=== PATIENT | male | born 1955 | race Caucasian/White ===

== ENCOUNTER 2018-10-17 17:38 | Inpatient (IN) | payer OTHER ==
[~2018-10-17] VITALS: Ht 172.7 cm; Wt 94.8 kg
[2018-10-17] MEDS ORDERED: ASPIRIN 325 MG TABLET PO ONE (18:30)
[2018-10-17 18:50] LABS: BASO % 1 % (0-3); EOS # 0.1 x10^3/uL (0.0-0.7); EOS % 2 % (0-3); HEMATOCRIT 46.5 % (39.0-53.0); HEMOGLOBIN 16.7 g/dL (13.0-17.5); LYMPH # 1.5 x10^3/uL (1.0-4.8); LYMPH % 24 % (24-48); MEAN CORPUSCULAR HEMOGLOBIN 31 pg (25-35); MEAN CORPUSCULAR HGB CONC 36 g/dL (31-37); MEAN CORPUSCULAR VOLUME 87 fL (79-100); MONO # 0.5 x10^3/uL (0.0-1.1); MONO % 8 % (0-9); NEUT # 4.1 x10^3/uL (1.8-7.7); NEUT % 65 % (31-73); PLATELET COUNT 199 x10^3/uL (140-400); RED BLOOD COUNT 5.38 x10^6/uL (4.30-5.70); RED CELL DISTRIBUTION WIDTH 13.2 % (11.5-14.5); WHITE BLOOD COUNT 6.3 x10^3/uL (4.0-11.0)
[2018-10-17 18:52] LABS: PROTHROMBIN TIME PATIENT 12.5 SEC (11.7-14.0)
[2018-10-17 18:55] LABS: CREATININE 1.4 mg/dL (0.7-1.3); GFR 51.5
[2018-10-17 19:01] LABS: ALBUMIN/GLOBULIN RATIO 1.3 (1.0-1.7); TOTAL BILIRUBIN 0.6 mg/dL (0.2-1.0); TOTAL PROTEIN 7.2 g/dL (6.4-8.2)
[2018-10-17 19:07] LABS: D-DIMER 0.28 ug/mlFEU (0.00-0.50)
[2018-10-17 19:21] LABS: BILIRUBIN,URINE NEGATIVE (NEG); CLARITY,URINE CLEAR; COLOR,URINE YELLOW; NITRITE,URINE NEGATIVE (NEG); PH,URINE 5.5; PROTEIN,URINE NEGATIVE (NEG-TRACE); UROBILINOGEN,URINE 0.2 mg/dL (0.2 mg/dL)
[2018-10-17 19:33] LABS: BACTERIA,URINE 0 /HPF (0-FEW); RBC,URINE 0 /HPF (0-2); WBC,URINE 0 /HPF (0-4)
--- NOTE | 2018-10-17 20:19 | PHYS DOC ---
Past Medical History Past Medical History: Hypertension Past Surgical History: No Surgical History Alcohol Use: Rarely Drug Use: None Adult General Chief Complaint Chief Complaint: CHEST PAIN HPI HPI Patient is a 63 year old male, accompanied by his , who presents to the emergency department with complaints of intermittent substernal chest pain that is worse with activity for the last 2 months. Patient states for the last week the symptoms have increased and occurred with any increased activity. He reports occasional episodes of diaphoresis with the substernal chest pain. He denies any palpitations. Patient complains of shortness of breath with the chest pain, and reports that the pain will radiate to his left upper arm and elbow. He denies any nausea, vomiting, abdominal pain, back pain, weakness, syncope, or swelling of the lower extremities. He does report that prior to the increase in frequency of his symptoms he had been on a two-hour long car ride. Patient denies any recent flights. He currently denies any pain. He denies any medical history he states that his last visit to a doctor was at least 20 years ago. Review of Systems Review of Systems Constitutional: Denies fever or chills [] Eyes: Denies change in visual acuity, redness, or eye pain [] HENT: Denies nasal congestion or sore throat [] Respiratory: Denies cough or shortness of breath [] Cardiovascular: No additional information not addressed in HPI [] GI: Denies abdominal pain, nausea, vomiting, or diarrhea [] : Denies dysuria or hematuria [] Musculoskeletal: Denies back pain or joint pain [] Integument: Denies rash or skin lesions [] Neurologic: Denies headache, focal weakness or sensory changes [] Complete systems were reviewed and found to be within normal limits, except as documented in this note. Current Medications Current Medications Current Medications Medications (Trade) Dose Ordered Sig/[facility] Start Time Stop Time Status Last Admin Dose Admin Aspirin (Miri Aspirin) 325 mg 1X ONCE 10/17/18 18:30 10/17/18 19:02 DC 10/17/18 19:02 325 MG Enoxaparin Sodium (Lovenox 100mg Syringe) 90 mg 1X ONCE 10/17/18 19:15 10/17/18 19:23 DC 10/17/18 19:51 90 MG Allergies Allergies Allergies Coded Allergies Type Severity Reaction Last Updated Verified No Known Drug Allergies 10/17/18 No Physical Exam Physical Exam Constitutional: Well developed, well nourished, no acute distress, non-toxic appearance. [] HENT: Normocephalic, atraumatic, bilateral external ears normal, oropharynx moist, no oral exudates, nose normal. [] Eyes: PERRLA, EOMI, conjunctiva normal, no discharge. [] Neck: Normal range of motion, no stridor. [] Cardiovascular:Heart rate regular rhythm, no murmur [] Lungs & Thorax: Bilateral breath sounds clear to auscultation, regular respirations, no increased work of breathing, [] Abdomen: Bowel sounds normal, soft, no tenderness, no masses, no pulsatile masses. [] Skin: Warm, dry, no erythema, no rash. [] Back: No tenderness, no CVA tenderness. [] Extremities: No cyanosis, no clubbing, ROM intact, no edema. [] Neurologic: Alert and oriented X 3, no focal deficits noted. [] Psychologic: Affect normal, judgement normal, mood normal. [] Current Patient Data Vital Signs Vital Signs Date Time Temp Pulse Resp B/P (MAP) Pulse Ox O2 Delivery O2 Flow Rate FiO2 10/17/18 19:50 94 22 190/88 (122) 98 Room Air 10/17/18 17:50 98.1 98.1 Lab Values Laboratory Tests Test 10/17/18 18:22 10/17/18 19:10 White Blood Count 6.3 x10^3/uL (4.0-11.0) Red Blood Count 5.38 x10^6/uL (4.30-5.70) Hemoglobin 16.7 g/dL (13.0-17.5) Hematocrit 46.5 % (39.0-53.0) Mean Corpuscular Volume 87 fL (79-100) Mean Corpuscular Hemoglobin 31 pg (25-35) Mean Corpuscular Hemoglobin Concent 36 g/dL (31-37) Red Cell Distribution Width 13.2 % (11.5-14.5) Platelet Count 199 x10^3/uL (140-400) Neutrophils (%) (Auto) 65 % (31-73) Lymphocytes (%) (Auto) 24 % (24-48) Monocytes (%) (Auto) 8 % (0-9) Eosinophils (%) (Auto) 2 % (0-3) Basophils (%) (Auto) 1 % (0-3) Neutrophils # (Auto) 4.1 x10^3/uL (1.8-7.7) Lymphocytes # (Auto) 1.5 x10^3/uL (1.0-4.8) Monocytes # (Auto) 0.5 x10^3/uL (0.0-1.1) Eosinophils # (Auto) 0.1 x10^3/uL (0.0-0.7) Basophils # (Auto) 0.0 x10^3/uL (0.0-0.2) Prothrombin Time 12.5 SEC (11.7-14.0) Prothrombin Time INR 1.0 (0.8-1.1) Activated Partial Thromboplast Time 27 SEC (24-38) D-Dimer (Bell) 0.28 ug/mlFEU (0.00-0.50) Sodium Level 140 mmol/L (136-145) Potassium Level 4.0 mmol/L (3.5-5.1) Chloride Level 102 mmol/L (98-107) Carbon Dioxide Level 26 mmol/L (21-32) Anion Gap 12 (6-14) Blood Urea Nitrogen 19 mg/dL (8-26) Creatinine 1.4 mg/dL (0.7-1.3) H Estimated GFR (Cockcroft-Gault) 51.5 BUN/Creatinine Ratio 14 (6-20) Glucose Level 289 mg/dL (70-99) H Calcium Level 9.0 mg/dL (8.5-10.1) Magnesium Level 2.0 mg/dL (1.8-2.4) Total Bilirubin 0.6 mg/dL (0.2-1.0) Aspartate Amino Transferase (AST) 16 U/L (15-37) Alanine Aminotransferase (ALT) 23 U/L (16-63) Alkaline Phosphatase 81 U/L (46-116) Creatine Kinase 78 U/L (39-308) Creatine Kinase MB (Mass) 1.9 ng/mL (0.0-3.6) Creatine Kinase MB Relative Index 2.4 % (0-4) Troponin I Quantitative 0.165 ng/mL (0.000-0.055) YV-Hgh-H-Type Natriuretic Peptide 59 pg/mL (0-124) Total Protein 7.2 g/dL (6.4-8.2) Albumin 4.0 g/dL (3.4-5.0) Albumin/Globulin Ratio 1.3 (1.0-1.7) Urine Collection Type Unknown Urine Color Yellow Urine Clarity Clear Urine pH 5.5 Urine Specific [place] >=1.030 Urine Protein Negative mg/dL (NEG-TRACE) Urine Glucose (UA) >=1000 mg/dL (NEG) Urine Ketones (Stick) Negative mg/dL (NEG) Urine Blood Negative (NEG) Urine Nitrite Negative (NEG) Urine Bilirubin Negative (NEG) Urine Urobilinogen Dipstick 0.2 mg/dL (0.2 mg/dL) Urine Leukocyte Esterase Negative (NEG) Urine RBC 0 /HPF (0-2) Urine WBC 0 /HPF (0-4) Urine Bacteria 0 /HPF (0-FEW) Laboratory Tests 10/17/18 18:22 Laboratory Tests 10/17/18 18:22 EKG EKG #1 1755- SR rate 89, PACs, incomplete RBBB, consider anterolateral myocardial damage consistent with inferior infarct, probably old. NO STEMI read by Dr. Salguero #2 1916- SR rate 85, PACs, leftward axis, QRS(T) abnormality consistent with inferior infarct, probably old, NO STEMI, read by Dr. Sampson [] Radiology/Procedures Radiology/Procedures [] Course & Med Decision Making Course & Med Decision Making Pertinent Labs and Imaging studies reviewed. (See chart for details) dx: ACS, elevated troponin. Pt was given 325 mg of ASA in the department. CBC unremarkable, PT/INR WNL, D-dimer 0.28, Manufacturing Planner 1.4, glucose 289, troponin 0.165, CMP otherwise unremarkable, CK index negative; UA concerning for > 1000 urine glucose, no ketones EKGs x2 negative for STEMI, concerning for prior inferior infarct. VSS. PT was given 90 mg of Lovenox [id number] Spoke with Dr. Gonzalez who is the admitting physician, and care was assumed following discussion of patient. Patient's vital signs are stable. Patient remains afebrile, appears nontoxic, respirations even and unlabored. Patient will be admitted to the CVC floor. Patient's case and plan of care also discussed with Dr. Sampson who will follow up on pending CXR results. Dragon Disclaimer Dragon Disclaimer This electronic medical record was generated, in whole or in part, using a voice recognition dictation system. Departure Departure Impression: Primary Impression: ACS (acute coronary syndrome) Additional Impression: Elevated troponin Disposition: ADMITTED INPATIENT Admitting Physician: BHARATHI MCFADDEN) Condition: STABLE Referrals: NO PCP (PCP) Problem Qualifiers YESICA RUSSELL CARRIAGE DOGGER Oct 17, 2018 20:19
[2018-10-17] MEDS ORDERED: LABETALOL 20 MG/4 ML DISP.SYRIN. IVP PRN (20:45)
[2018-10-17] MEDS ORDERED: ONDANSETRON PF 4 MG/2 ML VIAL. IV PRN (20:45)
[2018-10-17] MEDS ORDERED: ACETAMINOPHEN 500 MG TABLET PO PRN (20:45)
[2018-10-17] MEDS ORDERED: ACETAMINOPHEN/CODEINE 300/30MG TABLET. PO PRN (20:45)
[2018-10-17] MEDS ORDERED: IV NORMAL SALINE 1000ML BAG 1,000 ML IV ONE (20:45)
[2018-10-17 21:40] VITALS: BP 141/66
[2018-10-17 23:00] VITALS: BP 141/57
[2018-10-17] MEDS: ZOLPIDEM 5 MG TABLET. PO PRN (23:31)
[2018-10-18] VITALS (15 sets, daily range): BP systolic 109–170; BP diastolic 69–96
--- NOTE | 2018-10-18 06:34 | EKG ---
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
--- NOTE | 2018-10-18 06:48 | EKG ---
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
--- NOTE | 2018-10-18 08:11 | RAD ---
Chest radiograph 10/18/2018 8:00 AM INDICATION: Chest pain COMPARISON: None available TECHNIQUE: Portable upright frontal view of the chest is provided. FINDINGS: The cardiomediastinal silhouette is within normal limits. There are no pleural effusions. There is no pulmonary vascular congestion. There is no pneumothorax. The lungs are clear. No significant osseous abnormality is identified. IMPRESSION: No acute cardiopulmonary process. Electronically signed by: Arpita Hernández MD (10/18/2018 8:08 AM) [id number]
[2018-10-18 08:18] LABS: CHOLESTEROL/HDL RATIO 9.4
--- NOTE | 2018-10-18 08:53 | PDOC2 ---
CARDIAC CONSULT DATE OF CONSULT Date of Consult DATE: 10/18/18 TIME: 08:51 REASON FOR CONSULT Reason for Consult: ACS REFERRING PHYSICIAN Referring Physician: Ne SOURCE Source: Chart review, Patient HISTORY OF PRESENT ILLNESS HISTORY OF PRESENT ILLNESS This is a pleasant 63 yo male admitted for complains of chest pain and shortness of breath. Reports that in the last 2 months he has been having intermittent episode of FISHER and exertional CP. In the last week this has significantly increased. Reports of midchest burning with nagging discomfort to his left arm. Also has been having diaphoresis but no nausea and his discomfort last for at least about 15 minutes with 100 ft ambulation with FISHER and exertional chest discomfort and it takes about 15 minutes to get relieved with rest. No recent falls or any injury, no hx of DM, JACKI, CAD, VTE or any arrhythmias. He has been taking ASA in the last wk. He has been feeling fatigue as well. He denies taking any routine medications nor routine OTC NSAIDS. 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 PAST MEDICAL HISTORY Past Medical History right arm fracture closed reduction a s a child otherwise no pertinent medical history PAST SURGICAL HISTORY Past Surgical History: No pertinent history FAMILY HISTORY Family History: Other (mother of cerebral anurysm rupture in her 50s) SOCIAL HISTORY Smoke: No ALCOHOL: rare Drugs: None Lives: with Family CURRENT MEDICATIONS CURRENT MEDICATIONS Current Medications Medications (Trade) Dose Ordered Sig/Janine Route PRN Reason Start Time Stop Time Status Last Admin Dose Admin Aspirin (Miri Aspirin) 325 mg 1X ONCE PO 10/17/18 18:30 10/17/18 19:02 DC 10/17/18 19:02 Enoxaparin Sodium (Lovenox 100mg Syringe) 90 mg 1X ONCE SQ 10/17/18 19:15 10/17/18 19:23 DC 10/17/18 19:51 Zolpidem Tartrate (Ambien) 5 mg PRN QHS PRN PO INSOMNIA 10/17/18 20:45 10/17/18 23:32 Sodium Chloride 1,000 ml @ 100 mls/hr 1X ONCE IV 10/17/18 20:45 10/18/18 06:44 DC 10/17/18 23:32 ALLERGIES ALLERGIES: Coded Allergies: No Known Drug Allergies (Unverified , 10/17/18) ROS Review of System 14 point ROS evaluated with pertinent positives noted per HPI PHYSICAL EXAM General: Alert, Oriented X3, Cooperative, No acute distress HEENT: Atraumatic, Mucous membr. moist/pink Lungs: Clear to auscultation, Normal air movement Heart: Regular rate (SR), Normal S1, Normal S2, No murmurs Abdomen: Soft, No tenderness, Other (obese) Extremities: No cyanosis, No edema Skin: No breakdown, No significant lesion Neuro: Normal speech, Sensation intact Psych/Mental Status: Mental status NL, Mood NL MUSCULOSKELETAL: Osteoarthritic changes both hands VITALS/I&O VITALS/I&O: Vital Signs Date Time Temp Pulse Resp B/P (MAP) Pulse Ox O2 Delivery O2 Flow Rate FiO2 10/18/18 07:30 98.0 71 18 138/84 (102) 98 Room Air 98.0 I & O 10/17/18 10/17/18 10/18/18 15:00 23:00 07:00 Intake Total 840 ml Balance 840 ml LABS Lab: Laboratory Tests Test 10/17/18 18:22 10/17/18 19:10 10/18/18 00:30 10/18/18 06:15 White Blood Count 6.3 x10^3/uL (4.0-11.0) Red Blood Count 5.38 x10^6/uL (4.30-5.70) Hemoglobin 16.7 g/dL (13.0-17.5) Hematocrit 46.5 % (39.0-53.0) Mean Corpuscular Volume 87 fL (79-100) Mean Corpuscular Hemoglobin 31 pg (25-35) Mean Corpuscular Hemoglobin Concent 36 g/dL (31-37) Red Cell Distribution Width 13.2 % (11.5-14.5) Platelet Count 199 x10^3/uL (140-400) Neutrophils (%) (Auto) 65 % (31-73) Lymphocytes (%) (Auto) 24 % (24-48) Monocytes (%) (Auto) 8 % (0-9) Eosinophils (%) (Auto) 2 % (0-3) Basophils (%) (Auto) 1 % (0-3) Neutrophils # (Auto) 4.1 x10^3/uL (1.8-7.7) Lymphocytes # (Auto) 1.5 x10^3/uL (1.0-4.8) Monocytes # (Auto) 0.5 x10^3/uL (0.0-1.1) Eosinophils # (Auto) 0.1 x10^3/uL (0.0-0.7) Basophils # (Auto) 0.0 x10^3/uL (0.0-0.2) Prothrombin Time 12.5 SEC (11.7-14.0) Prothrombin Time INR 1.0 (0.8-1.1) Activated Partial Thromboplast Time 27 SEC (24-38) D-Dimer (Bell) 0.28 ug/mlFEU (0.00-0.50) Sodium Level 140 mmol/L (136-145) Potassium Level 4.0 mmol/L (3.5-5.1) Chloride Level 102 mmol/L (98-107) Carbon Dioxide Level 26 mmol/L (21-32) Anion Gap 12 (6-14) Blood Urea Nitrogen 19 mg/dL (8-26) Creatinine 1.4 mg/dL (0.7-1.3) H Estimated GFR (Cockcroft-Gault) 51.5 BUN/Creatinine Ratio 14 (6-20) Glucose Level 289 mg/dL (70-99) H Calcium Level 9.0 mg/dL (8.5-10.1) Magnesium Level 2.0 mg/dL (1.8-2.4) Total Bilirubin 0.6 mg/dL (0.2-1.0) Aspartate Amino Transferase (AST) 16 U/L (15-37) Alanine Aminotransferase (ALT) 23 U/L (16-63) Alkaline Phosphatase 81 U/L (46-116) Creatine Kinase 78 U/L (39-308) Creatine Kinase MB (Mass) 1.9 ng/mL (0.0-3.6) Creatine Kinase MB Relative Index 2.4 % (0-4) Troponin I Quantitative 0.165 ng/mL (0.000-0.055) 0.410 ng/mL (0.000-0.055) 0.593 ng/mL (0.000-0.055) CY-Kcp-A-Type Natriuretic Peptide 59 pg/mL (0-124) Total Protein 7.2 g/dL (6.4-8.2) Albumin 4.0 g/dL (3.4-5.0) Albumin/Globulin Ratio 1.3 (1.0-1.7) Urine Collection Type Unknown Urine Color Yellow Urine Clarity Clear Urine pH 5.5 Urine Specific [place] >=1.030 Urine Protein Negative mg/dL (NEG-TRACE) Urine Glucose (UA) >=1000 mg/dL (NEG) Urine Ketones (Stick) Negative mg/dL (NEG) Urine Blood Negative (NEG) Urine Nitrite Negative (NEG) Urine Bilirubin Negative (NEG) Urine Urobilinogen Dipstick 0.2 mg/dL (0.2 mg/dL) Urine Leukocyte Esterase Negative (NEG) Urine RBC 0 /HPF (0-2) Urine WBC 0 /HPF (0-4) Urine Bacteria 0 /HPF (0-FEW) Triglycerides Level 444 mg/dL (0-150) H Cholesterol Level 245 mg/dL (0-200) H LDL Cholesterol, Calculated 130 mg/dL (0-100) H VLDL Cholesterol, Calculated 89 mg/dL (0-40) H Non-HDL Cholesterol Calculated 219 mg/dL (0-129) H HDL Cholesterol 26 mg/dL (40-60) L Cholesterol/HDL Ratio 9.4 Thyroid Stimulating Hormone (TSH) 1.935 uIU/mL (0.358-3.74) Laboratory Tests 10/17/18 18:22 Laboratory Tests 10/17/18 18:22 ASSESSMENT/PLAN ASSESSMENT/PLAN 1. NSTEMI 2. HTN: labile, new 3. HLP: new 4. DM2: new. Defer to PCP 5. Obesity 6. Suspect CKD Recommendations 1. [facility] risks and benefits discussed and agreeable to proceed, TTE, A1C, TSH 2. ASA, statin, lovenox received last noc 3. Dietitian consult CRISTINA PEREZ [employer] Oct 18, 2018 08:53
[2018-10-18] MEDS ORDERED: IODIXANOL 320 MG/ML 100 ML VIAL. ONE ×2 (09:17→09:53)
[2018-10-18] MEDS ORDERED: LIDOCAINE 1% Multi-Dose 20 ML VIAL. ONE (09:17)
--- NOTE | 2018-10-18 09:18 | NUR ---
SS following up with discharge planning. SS reviewed pt chart. Pt is from home with spouse and is currently on room air. No discharge needs noted at this time. SS will continue to follow for discharge planning.
[2018-10-18] MEDS ORDERED: fentaNYL PF VIAL 100 MCG/2 ML VIAL ONE (09:24)
[2018-10-18] MEDS ORDERED: MIDAZOLAM HCL/PF 5 MG/5 ML VIAL. ONE (09:24)
[2018-10-18] MEDS ORDERED: NITROGLYCERIN 200 MCG/2 ML SYRINGE FOR CATH/VASC LAB. ONE (09:26)
[2018-10-18] MEDS ORDERED: HEPARIN for IV BOLUS 10,000 UNIT/10 ML VIAL. ONE (09:26)
[2018-10-18] MEDS ORDERED: VERAPAMIL 5 MG/2 ML VIAL. ONE (09:26)
[2018-10-18 09:37] LABS: CALCIUM 8.5 mg/dL (8.5-10.1); CREATININE 1.1 mg/dL (0.7-1.3); GFR 68.1
--- NOTE | 2018-10-18 10:04 | PDOC ---
MODERATE SEDATION ASSESSMENT RISKS/ALTERNATIVES Risks/Alternatives Risks and alternatives of this type of sedation and procedure discussed with: RISK/ALTERNATIVES: Patient H & P ON CHART H & P H & P on chart and reviewed for co-morbid conditions and appropriate labs. H&P ON CHART: Yes STATUS PREG STATUS ASSESSED: N/A MEDS/ALLERGIES REVIEWED Meds/Allergies Reviewed Medications and Allergies including time and route of recently administered narcotics and sedatives. MEDS/ALLERGIES REVIEWED: Yes ASA RATING ASA RATING: II AIRWAY ASSESSMENT Airway Assessment Airway patency, oral function limitations, presence of caps, crowns, dentures, partials, and ability to extend neck assessed. AIRWAY ASSESSMENT: Yes MALLAMPATI SCORE MALLAMPATI SCORE: II PRE-SEDATION ASSESSMENT PRE-SEDATION ASSESSMENT: Yes THEODORA COPELAND MD Oct 18, 2018 10:04
[2018-10-18] MEDS ORDERED: LIDOCAINE 1% Multi-Dose 20 ML VIAL. INJ ONE (10:15)
[2018-10-18] MEDS ORDERED: HEPARIN for IV BOLUS 10,000 UNIT/10 ML VIAL. IART ONE (10:15)
[2018-10-18] MEDS ORDERED: MIDAZOLAM HCL/PF 5 MG/5 ML VIAL. IV ONE (10:15)
[2018-10-18] MEDS ORDERED: IODIXANOL 320 MG/ML 100 ML VIAL. IART ONE (10:15)
[2018-10-18] MEDS ORDERED: NITROGLYCERIN 200 MCG/2 ML SYRINGE FOR CATH/VASC LAB. IART ONE (10:15)
[2018-10-18] MEDS ORDERED: VERAPAMIL 5 MG/2 ML VIAL. IART ONE (10:15)
[2018-10-18] MEDS ORDERED: fentaNYL PF VIAL 100 MCG/2 ML VIAL IV ONE (10:15)
--- NOTE | 2018-10-18 10:20 | PDOC1 ---
History and Physical Date of Admission Date of Admission DATE: 10/18/18 TIME: 10:19 Identification/Chief Complaint Chief Complaint SEEN IN ER presented to the emergency department with complaints of intermittent substernal chest pain that is worse with activity for the last 2 months. states for the last week the symptoms have increased and occurred with any increased activity. He reports occasional episodes of diaphoresis with the substernal chest pain. He denies any palpitations. Patient complains of shortness of breath with the chest pain, and reports that the pain will radiate to his left upper arm and elbow. Past Medical History Past Medical History Past Medical History Past Medical History Past Medical History: Hypertension Past Surgical History: No Surgical History Alcohol Use: Rarely Drug Use: None family hx obesity Cardiovascular: HTN, Hyperlipidemia Endocrine: Diabetes Past Surgical History Past Surgical History: No pertinent history Family History Family History: Hypertension Social History Smoke: Quit ALCOHOL: none Drugs: None Current Problem List Problem List Problems Medical Problems: (1) ACS (acute coronary syndrome) Status: Acute (2) Elevated troponin Status: Acute Current Medications Current Medications Current Medications Aspirin (Miri Aspirin) 325 mg 1X ONCE PO Last administered on 10/17/18at 19:02; Start 10/17/18 at 18:30; Stop 10/17/18 at 19:02; Status DC Enoxaparin Sodium (Lovenox 100mg Syringe) 90 mg 1X ONCE SQ Last administered on 10/17/18at 19:51; Start 10/17/18 at 19:15; Stop 10/17/18 at 19:23; Status DC Ondansetron HCl (Zofran) 4 mg PRN Q6HRS PRN IV NAUSEA/VOMITING; Start 10/17/18 at 20:45 Acetaminophen (Tylenol) 500 mg PRN Q6HRS PRN PO MILD PAIN / TEMP; Start 10/17/18 at 20:45 Acetaminophen/ Codeine Phosphate (Tylenol #3) 1 tab PRN Q6HRS PRN PO MODERATE PAIN; Start 10/17/18 at 20:45 Zolpidem Tartrate (Ambien) 5 mg PRN QHS PRN PO INSOMNIA Last administered on 10/17/18at 23:32; Start 10/17/18 at 20:45 Labetalol HCl (Normodyne Iv Push) 20 mg PRN Q2HR PRN IVP HYPERTENSION; Start 10/17/18 at 20:45 Sodium Chloride 1,000 ml @ 100 mls/hr 1X ONCE IV Last administered on 10/17/18at 23:32; Start 10/17/18 at 20:45; Stop 10/18/18 at 06:44; Status DC Iodixanol (Visipaque 320) 100 ml STK-MED ONCE .ROUTE ; Start 10/18/18 at 09:17; Stop 10/18/18 at 09:17; Status DC Lidocaine HCl (Lidocaine 1% 20ml Vial) 20 ml STK-MED ONCE .ROUTE ; Start 10/18/18 at 09:17; Stop 10/18/18 at 09:17; Status DC Heparin Sodium/ Sodium Chloride 1,000 ml @ As Directed STK-MED ONCE .ROUTE ; Start 10/18/18 at 09:17; Stop 10/18/18 at 09:17; Status DC Fentanyl Citrate (Fentanyl 2ml Vial) 100 mcg STK-MED ONCE .ROUTE ; Start 10/18/18 at 09:24; Stop 10/18/18 at 09:24; Status DC Midazolam HCl (Versed) 5 mg STK-MED ONCE .ROUTE ; Start 10/18/18 at 09:24; Stop 10/18/18 at 09:24; Status DC Heparin Sodium (Porcine) (Heparin Sodium) 10,000 unit STK-MED ONCE .ROUTE ; Start 10/18/18 at 09:26; Stop 10/18/18 at 09:26; Status DC Verapamil HCl (Verapamil) 5 mg STK-MED ONCE .ROUTE ; Start 10/18/18 at 09:26; Stop 10/18/18 at 09:26; Status DC Nitroglycerin (Nitroglycerin) 200 mcg STK-MED ONCE .ROUTE ; Start 10/18/18 at 09:26; Stop 10/18/18 at 09:26; Status DC Iodixanol (Visipaque 320) 100 ml STK-MED ONCE .ROUTE ; Start 10/18/18 at 09:53; Stop 10/18/18 at 09:53; Status DC Nitroglycerin (Nitroglycerin) 200 mcg 1X ONCE IART ; Start 10/18/18 at 10:15; Stop 10/18/18 at 10:16; Status UNV Verapamil HCl (Verapamil) 2.5 mg 1X ONCE IART ; Start 10/18/18 at 10:15; Stop 10/18/18 at 10:16; Status UNV Heparin Sodium (Porcine) (Heparin Sodium) 2,500 unit 1X ONCE IART ; Start 10/18/18 at 10:15; Stop 10/18/18 at 10:16; Status UNV Heparin Sodium/ Sodium Chloride (HEPARIN for ARTERIAL LINE FLUSH) 1,000 unit 1X ONCE IART ; Start 10/18/18 at 10:15; Stop 10/18/18 at 10:16; Status UNV Heparin Sodium/ Sodium Chloride (HEPARIN for ARTERIAL LINE FLUSH) 1,000 unit 1X ONCE IART ; Start 10/18/18 at 10:15; Stop 10/18/18 at 10:16; Status UNV Midazolam HCl (Versed) 5 mg 1X ONCE IV ; Start 10/18/18 at 10:15; Stop 10/18/18 at 10:16; Status UNV Fentanyl Citrate (Fentanyl 2ml Vial) 100 mcg 1X ONCE IV ; Start 10/18/18 at 10:15; Stop 10/18/18 at 10:16; Status UNV Lidocaine HCl (Lidocaine 1% 20ml Vial) 20 ml 1X ONCE INJ ; Start 10/18/18 at 10:15; Stop 10/18/18 at 10:16; Status UNV Iodixanol (Visipaque 320) 100 ml 1X ONCE IART ; Start 10/18/18 at 10:15; Stop 10/18/18 at 10:16; Status UNV Allergies Allergies: Coded Allergies: No Known Drug Allergies (Unverified , 10/17/18) ROS Review of System Review of Systems Review of Systems Constitutional: Denies fever or chills [] Eyes: Denies change in visual acuity, redness, or eye pain [] HENT: Denies nasal congestion or sore throat [] Respiratory: Denies cough or shortness of breath [] Cardiovascular: No additional information not addressed in HPI [] GI: Denies abdominal pain, nausea, vomiting, or diarrhea [] : Denies dysuria or hematuria [] Musculoskeletal: Denies back pain or joint pain [] Integument: Denies rash or skin lesions [] Neurologic: Denies headache, focal weakness or sensory changes [] 14 PT systems were reviewed and found to be within normal limits, except as documented Musculoskeletal: No Gait Disturbance, No Joint Pain, No Joint Stiffness, No Joint Swelling, No Muscle Pain, No Muscular Weakness, No Pain In:, No Swelling In:, No Other Skin: No Dry Skin, No Eczema, No Hair Changes, No Lumps, No Mole Changes, No Mottling, No Nail Changes, No Pruritus, No Rash, No Skin Lesion Changes, No Other, No Acne Physical Exam Physical Exam Physical Exam Physical Exam Constitutional: Well developed, well nourished, no acute distress, non-toxic appearance. [] HENT: Normocephalic, atraumatic, bilateral external ears normal, oropharynx moist, no oral exudates, nose normal. [] Eyes: PERRLA, EOMI, conjunctiva normal, no discharge. [] Neck: Normal range of motion, no stridor. [] Cardiovascular:Heart rate regular rhythm, no murmur [] Lungs & Thorax: Bilateral breath sounds clear to auscultation, regular respirations, no increased work of breathing, [] Abdomen: Bowel sounds normal, soft, no tenderness, no masses, no pulsatile masses. [] Skin: Warm, dry, no erythema, no rash. [] Back: No tenderness, no CVA tenderness. [] Extremities: No cyanosis, no clubbing, ROM intact, no edema. [] Neurologic: Alert and oriented X 3, no focal deficits noted. [] Psychologic: Affect normal, judgement normal, mood normal. [] General: Alert, Oriented X3, Cooperative HEENT: Atraumatic, EOMI, Mucous membr. moist/pink Lungs: Clear to auscultation Heart: RRR Abdomen: Normal bowel sounds, Soft Neuro: Normal speech, Cranial nerves 3-12 NL Psych/Mental Status: Mental status NL, Mood NL Vitals Vitals Vital Signs Date Time Temp Pulse Resp B/P (MAP) Pulse Ox O2 Delivery O2 Flow Rate FiO2 10/18/18 07:30 98.0 71 18 138/84 (102) 98 Room Air 98.0 Labs Labs Laboratory Tests Test 10/17/18 18:22 10/17/18 19:10 10/18/18 00:30 10/18/18 06:15 White Blood Count 6.3 x10^3/uL (4.0-11.0) Red Blood Count 5.38 x10^6/uL (4.30-5.70) Hemoglobin 16.7 g/dL (13.0-17.5) Hematocrit 46.5 % (39.0-53.0) Mean Corpuscular Volume 87 fL (79-100) Mean Corpuscular Hemoglobin 31 pg (25-35) Mean Corpuscular Hemoglobin Concent 36 g/dL (31-37) Red Cell Distribution Width 13.2 % (11.5-14.5) Platelet Count 199 x10^3/uL (140-400) Neutrophils (%) (Auto) 65 % (31-73) Lymphocytes (%) (Auto) 24 % (24-48) Monocytes (%) (Auto) 8 % (0-9) Eosinophils (%) (Auto) 2 % (0-3) Basophils (%) (Auto) 1 % (0-3) Neutrophils # (Auto) 4.1 x10^3/uL (1.8-7.7) Lymphocytes # (Auto) 1.5 x10^3/uL (1.0-4.8) Monocytes # (Auto) 0.5 x10^3/uL (0.0-1.1) Eosinophils # (Auto) 0.1 x10^3/uL (0.0-0.7) Basophils # (Auto) 0.0 x10^3/uL (0.0-0.2) Prothrombin Time 12.5 SEC (11.7-14.0) Prothromb Time International Ratio 1.0 (0.8-1.1) Activated Partial Thromboplast Time 27 SEC (24-38) D-Dimer (Bell) 0.28 ug/mlFEU (0.00-0.50) Sodium Level 140 mmol/L (136-145) 141 mmol/L (136-145) Potassium Level 4.0 mmol/L (3.5-5.1) 4.0 mmol/L (3.5-5.1) Chloride Level 102 mmol/L (98-107) 106 mmol/L (98-107) Carbon Dioxide Level 26 mmol/L (21-32) 23 mmol/L (21-32) Anion Gap 12 (6-14) 12 (6-14) Blood Urea Nitrogen 19 mg/dL (8-26) 18 mg/dL (8-26) Creatinine 1.4 mg/dL (0.7-1.3) 1.1 mg/dL (0.7-1.3) Estimated GFR (Cockcroft-Gault) 51.5 68.1 BUN/Creatinine Ratio 14 (6-20) Glucose Level 289 mg/dL (70-99) 235 mg/dL (70-99) Calcium Level 9.0 mg/dL (8.5-10.1) 8.5 mg/dL (8.5-10.1) Magnesium Level 2.0 mg/dL (1.8-2.4) 2.0 mg/dL (1.8-2.4) Total Bilirubin 0.6 mg/dL (0.2-1.0) Aspartate Amino Transf (AST/SGOT) 16 U/L (15-37) Alanine Aminotransferase (ALT/SGPT) 23 U/L (16-63) Alkaline Phosphatase 81 U/L (46-116) Creatine Kinase 78 U/L (39-308) Creatine Kinase MB (Mass) 1.9 ng/mL (0.0-3.6) Creatine Kinase MB Relative Index 2.4 % (0-4) Troponin I Quantitative 0.165 ng/mL (0.000-0.055) 0.410 ng/mL (0.000-0.055) 0.593 ng/mL (0.000-0.055) PD-Cag-V-Type Natriuretic Peptide 59 pg/mL (0-124) Total Protein 7.2 g/dL (6.4-8.2) Albumin 4.0 g/dL (3.4-5.0) Albumin/Globulin Ratio 1.3 (1.0-1.7) Urine Collection Type Unknown Urine Color Yellow Urine Clarity Clear Urine pH 5.5 Urine Specific [place] >=1.030 Urine Protein Negative mg/dL (NEG-TRACE) Urine Glucose (UA) >=1000 mg/dL (NEG) Urine Ketones (Stick) Negative mg/dL (NEG) Urine Blood Negative (NEG) Urine Nitrite Negative (NEG) Urine Bilirubin Negative (NEG) Urine Urobilinogen Dipstick 0.2 mg/dL (0.2 mg/dL) Urine Leukocyte Esterase Negative (NEG) Urine RBC 0 /HPF (0-2) Urine WBC 0 /HPF (0-4) Urine Bacteria 0 /HPF (0-FEW) Triglycerides Level 444 mg/dL (0-150) Cholesterol Level 245 mg/dL (0-200) LDL Cholesterol, Calculated 130 mg/dL (0-100) VLDL Cholesterol, Calculated 89 mg/dL (0-40) Non-HDL Cholesterol Calculated 219 mg/dL (0-129) HDL Cholesterol 26 mg/dL (40-60) Cholesterol/HDL Ratio 9.4 Thyroid Stimulating Hormone (TSH) 1.935 uIU/mL (0.358-3.74) Laboratory Tests Test 10/17/18 18:22 10/17/18 19:10 10/18/18 00:30 10/18/18 06:15 White Blood Count 6.3 x10^3/uL (4.0-11.0) Red Blood Count 5.38 x10^6/uL (4.30-5.70) Hemoglobin 16.7 g/dL (13.0-17.5) Hematocrit 46.5 % (39.0-53.0) Mean Corpuscular Volume 87 fL (79-100) Mean Corpuscular Hemoglobin 31 pg (25-35) Mean Corpuscular Hemoglobin Concent 36 g/dL (31-37) Red Cell Distribution Width 13.2 % (11.5-14.5) Platelet Count 199 x10^3/uL (140-400) Neutrophils (%) (Auto) 65 % (31-73) Lymphocytes (%) (Auto) 24 % (24-48) Monocytes (%) (Auto) 8 % (0-9) Eosinophils (%) (Auto) 2 % (0-3) Basophils (%) (Auto) 1 % (0-3) Neutrophils # (Auto) 4.1 x10^3/uL (1.8-7.7) Lymphocytes # (Auto) 1.5 x10^3/uL (1.0-4.8) Monocytes # (Auto) 0.5 x10^3/uL (0.0-1.1) Eosinophils # (Auto) 0.1 x10^3/uL (0.0-0.7) Basophils # (Auto) 0.0 x10^3/uL (0.0-0.2) Prothrombin Time 12.5 SEC (11.7-14.0) Prothromb Time International Ratio 1.0 (0.8-1.1) Activated Partial Thromboplast Time 27 SEC (24-38) D-Dimer (Bell) 0.28 ug/mlFEU (0.00-0.50) Sodium Level 140 mmol/L (136-145) 141 mmol/L (136-145) Potassium Level 4.0 mmol/L (3.5-5.1) 4.0 mmol/L (3.5-5.1) Chloride Level 102 mmol/L (98-107) 106 mmol/L (98-107) Carbon Dioxide Level 26 mmol/L (21-32) 23 mmol/L (21-32) Anion Gap 12 (6-14) 12 (6-14) Blood Urea Nitrogen 19 mg/dL (8-26) 18 mg/dL (8-26) Creatinine 1.4 mg/dL (0.7-1.3) 1.1 mg/dL (0.7-1.3) Estimated GFR (Cockcroft-Gault) 51.5 68.1 BUN/Creatinine Ratio 14 (6-20) Glucose Level 289 mg/dL (70-99) 235 mg/dL (70-99) Calcium Level 9.0 mg/dL (8.5-10.1) 8.5 mg/dL (8.5-10.1) Magnesium Level 2.0 mg/dL (1.8-2.4) 2.0 mg/dL (1.8-2.4) Total Bilirubin 0.6 mg/dL (0.2-1.0) Aspartate Amino Transf (AST/SGOT) 16 U/L (15-37) Alanine Aminotransferase (ALT/SGPT) 23 U/L (16-63) Alkaline Phosphatase 81 U/L (46-116) Creatine Kinase 78 U/L (39-308) Creatine Kinase MB (Mass) 1.9 ng/mL (0.0-3.6) Creatine Kinase MB Relative Index 2.4 % (0-4) Troponin I Quantitative 0.165 ng/mL (0.000-0.055) 0.410 ng/mL (0.000-0.055) 0.593 ng/mL (0.000-0.055) TH-Nbb-S-Type Natriuretic Peptide 59 pg/mL (0-124) Total Protein 7.2 g/dL (6.4-8.2) Albumin 4.0 g/dL (3.4-5.0) Albumin/Globulin Ratio 1.3 (1.0-1.7) Urine Collection Type Unknown Urine Color Yellow Urine Clarity Clear Urine pH 5.5 Urine Specific [place] >=1.030 Urine Protein Negative mg/dL (NEG-TRACE) Urine Glucose (UA) >=1000 mg/dL (NEG) Urine Ketones (Stick) Negative mg/dL (NEG) Urine Blood Negative (NEG) Urine Nitrite Negative (NEG) Urine Bilirubin Negative (NEG) Urine Urobilinogen Dipstick 0.2 mg/dL (0.2 mg/dL) Urine Leukocyte Esterase Negative (NEG) Urine RBC 0 /HPF (0-2) Urine WBC 0 /HPF (0-4) Urine Bacteria 0 /HPF (0-FEW) Triglycerides Level 444 mg/dL (0-150) Cholesterol Level 245 mg/dL (0-200) LDL Cholesterol, Calculated 130 mg/dL (0-100) VLDL Cholesterol, Calculated 89 mg/dL (0-40) Non-HDL Cholesterol Calculated 219 mg/dL (0-129) HDL Cholesterol 26 mg/dL (40-60) Cholesterol/HDL Ratio 9.4 Thyroid Stimulating Hormone (TSH) 1.935 uIU/mL (0.358-3.74) Images Images Procedures Left heart catheterization Selective coronary angiogram Left ventriculogram Aortic root injection The patient is a 63-year-old male was admitted to the hospital with recurrent episodes of chest discomfort. He also admitted with accelerated hypertension and newly diagnosis diabetes. In the setting of his recurrent and progressive chest pain heart catheterization was recommended. Risks and benefits were discussed with the patient and he agreed to proceed. After informed consent was obtained the area of the right radial artery was prepared in the usual manner with Betadine, sterile draping and local anesthetic after an acceptable Anthony's test. A quick catheter system was used to enter the right radial artery, a wire placed and a 6 [place] sheath placed over the wire. The standard mixture of heparin and antispasm medications was administered throu gh the sheath. Using a J-wire, a 6 [place] JL 3.5 diagnostic catheter was advanced to the ascending aorta and used to engage the left coronary system. Sequential injections in various views were obtained. Using an [id number] exchange, a 6 [place] JR4 diagnostic catheter was then used to engage the right coronary artery system and sequential injections in various views were obtained. A pigtail catheter was advanced to the ascending aorta. A 30� [place] aortic root injection was performed. The catheter was then passed to the left ventricle and a 30� AGUIRRE left ventriculogram was performed. Pullback pressures were measured. The catheter was removed from the patient. The sheath was removed and sealed in a standard fashion with a TR band. The patient was moved to the holding area in stable condition. Findings. Hemodynamics. Aortic root pressure 148/6, 16. Aortic root pressure 144/78. Coronaries. Left main. The left main was a moderately large vessel with no lesions. Left anterior descending. The LAD had a proximal large vessel. In its midportion there was a greater than 95% lesion with a long area of diffuse disease post lesion. Left circumflex. The left circumflex is a moderate size vessel. Had a mid greater than 95% lesion with diffuse disease ending in a more distal 90% lesion. Right coronary artery. The right coronary had a very distal 90% lesion. Aortic root. The aortic root appeared normal without evidence of enlargement or dissection. Left ventriculogram. The left ventricle showed intact LV systolic function with ejection fraction of 60% or greater. <Conclusion> Three-vessel coronary artery disease in a patient with newly diagnosed diabetes. Intact LV systolic function. We'll obtain a surgical evaluation. VTE Prophylaxis Ordered VTE Prophylaxis Devices: Yes VTE Pharmacological Prophylaxi: Yes Assessment/Plan Assessment/Plan ASSESSMENT/PLAN NSTEMI, acute Three-vessel coronary artery disease in a patient with newly diagnosed diabetes. Intact LV systolic function. HTN: labile Hyperlipidemia DM2 Obesity, morbid CKD plan admit cvc bed HEPARIN DRIP to label sewer CONSTANTINO TTE, A1C, ACCUCHECKS TSH ASA, statin, lovenox GI PROPHYLAXIS CTS CONSULT ///echo, carotid duplex, bilateral lower extremity vein mapping, noncontrast CT of the chest. 76 MIN PT EXAM, CHART REVIEW, > 50% OF TIME SPENT WITH EXAM, CHART REVIEW, PT CARE COORDINATION TONY QUINTANILLA MD Oct 18, 2018 10:20
[2018-10-18] MEDS ORDERED: CONTRAST GIVEN. MC PRN (10:30)
[2018-10-18] MEDS ORDERED: HEPARIN for IV BOLUS 10,000 UNIT/10 ML VIAL. IV PRN (11:00)
[2018-10-18] MEDS ORDERED: 0.9 % SODIUM CHLORIDE 10 ML DISP.SYRIN. IV PRN (11:00)
[2018-10-18] MEDS ORDERED: METOPROLOL TART IMMED RELEASE 25 MG TABLET. PO SCH (11:00)
[2018-10-18] MEDS ORDERED: NITROGLYCERIN SUBLINGUAL 0.4 MG BOTTLE OF 25. SL PRN (11:00)
[2018-10-18] MEDS: HEPARIN 25,000UTS/500ML PREMIX 500 ML IV PRN (11:25)
[2018-10-18] MEDS ORDERED: IV NORMAL SALINE 1000ML BAG 1,000 ML IV SCH (11:30)
--- NOTE | 2018-10-18 13:25 | PDOC2 ---
CONSULT Date of Consult Date of Consult DATE: 10/18/18 TIME: 13:22 Reason for Consult Reason for Consult: CAD Referring Physician Referring Physician: Dr García Identification/Chief Complaint Chief Complaint Chest pain Source Source: Chart review, Patient History of Present Illness Reason for Visit: The patient is a 63-year-old male with newly diagnosed diabetes and hypertension who was admitted to [facility] yesterday after presenting with a non-STEMI. The patient reports angina on minimal exertion for the past 2 months. Recently his chest pain occurs on minimal exertion and lasts longer. Upon admission he no EKG changes and a troponin of 0.59. His troponin is now downtrending. Coronary angiography today showed a tight and long proximal LAD stenosis, a tight proximal left circumflex lesion and a tight stenosis of the proximal RPDA. He is currently chest pain-free. I was consulted to consider the patient for surgical coronary revascularization. Past Medical History Cardiovascular: HTN Endocrine: Diabetes Past Surgical History Past Surgical History: Other (wrist fixation) Family History Family History: No Significant Social History No ALCOHOL: rare Drugs: None Lives: with Family Current Problem List Problem List Problems Medical Problems: (1) ACS (acute coronary syndrome) Status: Acute (2) Elevated troponin Status: Acute Current Medications Current Medications Current Medications Aspirin (Miri Aspirin) 325 mg 1X ONCE PO Last administered on 10/17/18at 19:02; Start 10/17/18 at 18:30; Stop 10/17/18 at 19:02; Status DC Enoxaparin Sodium (Lovenox 100mg Syringe) 90 mg 1X ONCE SQ Last administered on 10/17/18at 19:51; Start 10/17/18 at 19:15; Stop 10/17/18 at 19:23; Status DC Ondansetron HCl (Zofran) 4 mg PRN Q6HRS PRN IV NAUSEA/VOMITING; Start 10/17/18 at 20:45 Acetaminophen (Tylenol) 500 mg PRN Q6HRS PRN PO MILD PAIN / TEMP; Start 10/17/18 at 20:45 Acetaminophen/ Codeine Phosphate (Tylenol #3) 1 tab PRN Q6HRS PRN PO MODERATE PAIN Last administered on 10/18/18at 11:26; Start 10/17/18 at 20:45 Zolpidem Tartrate (Ambien) 5 mg PRN QHS PRN PO INSOMNIA Last administered on 10/17/18at 23:32; Start 10/17/18 at 20:45 Labetalol HCl (Normodyne Iv Push) 20 mg PRN Q2HR PRN IVP HYPERTENSION; Start 10/17/18 at 20:45 Sodium Chloride 1,000 ml @ 100 mls/hr 1X ONCE IV Last administered on 10/17/18 at 23:32; Start 10/17/18 at 20:45; Stop 10/18/18 at 06:44; Status DC Iodixanol (Visipaque 320) 100 ml STK-MED ONCE .ROUTE ; Start 10/18/18 at 09:17; Stop 10/18/18 at 09:17; Status DC Lidocaine HCl (Lidocaine 1% 20ml Vial) 20 ml STK-MED ONCE .ROUTE ; Start 10/18/18 at 09:17; Stop 10/18/18 at 09:17; Status DC Heparin Sodium/ Sodium Chloride 1,000 ml @ As Directed STK-MED ONCE .ROUTE ; Start 10/18/18 at 09:17; Stop 10/18/18 at 09:17; Status DC Fentanyl Citrate (Fentanyl 2ml Vial) 100 mcg STK-MED ONCE .ROUTE ; Start 10/18/18 at 09:24; Stop 10/18/18 at 09:24; Status DC Midazolam HCl (Versed) 5 mg STK-MED ONCE .ROUTE ; Start 10/18/18 at 09:24; Stop 10/18/18 at 09:24; Status DC Heparin Sodium (Porcine) (Heparin Sodium) 10,000 unit STK-MED ONCE .ROUTE ; Start 10/18/18 at 09:26; Stop 10/18/18 at 09:26; Status DC Verapamil HCl (Verapamil) 5 mg STK-MED ONCE .ROUTE ; Start 10/18/18 at 09:26; Stop 10/18/18 at 09:26; Status DC Nitroglycerin (Nitroglycerin) 200 mcg STK-MED ONCE .ROUTE ; Start 10/18/18 at 09:26; Stop 10/18/18 at 09:26; Status DC Iodixanol (Visipaque 320) 100 ml STK-MED ONCE .ROUTE ; Start 10/18/18 at 09:53; Stop 10/18/18 at 09:53; Status DC Nitroglycerin (Nitroglycerin) 200 mcg 1X ONCE IART Last administered on 10/18/18at 10:50; Start 10/18/18 at 10:15; Stop 10/18/18 at 10:21; Status DC Verapamil HCl (Verapamil) 2.5 mg 1X ONCE IART Last administered on 10/18/18at 10:50; Start 10/18/18 at 10:15; Stop 10/18/18 at 10:21; Status DC Heparin Sodium (Porcine) (Heparin Sodium) 2,500 unit 1X ONCE IART Last administered on 10/18/18at 10:50; Start 10/18/18 at 10:15; Stop 10/18/18 at 10:21; Status DC Heparin Sodium/ Sodium Chloride (HEPARIN for ARTERIAL LINE FLUSH) 1,000 unit 1X ONCE IART Last administered on 10/18/18at 10:50; Start 10/18/18 at 10:15; Stop 10/18/18 at 10:21; Status DC Heparin Sodium/ Sodium Chloride (HEPARIN for ARTERIAL LINE FLUSH) 1,000 unit 1X ONCE IART Last administered on 10/18/18at 10:50; Start 10/18/18 at 10:15; Stop 10/18/18 at 10:21; Status DC Midazolam HCl (Versed) 5 mg 1X ONCE IV Last administered on 10/18/18at 10:50; Start 10/18/18 at 10:15; Stop 10/18/18 at 10:21; Status DC Fentanyl Citrate (Fentanyl 2ml Vial) 100 mcg 1X ONCE IV Last administered on 10/18/18at 10:50; Start 10/18/18 at 10:15; Stop 10/18/18 at 10:21; Status DC Lidocaine HCl (Lidocaine 1% 20ml Vial) 20 ml 1X ONCE INJ Last administered on 10/18/18at 10:50; Start 10/18/18 at 10:15; Stop 10/18/18 at 10:21; Status DC Iodixanol (Visipaque 320) 100 ml 1X ONCE IART Last administered on 10/18/18at 10:50; Start 10/18/18 at 10:15; Stop 10/18/18 at 10:21; Status DC Info (CONTRAST GIVEN -- Rx MONITORING) 1 each PRN DAILY PRN MC SEE COMMENTS; Start 10/18/18 at 10:30; Stop 10/20/18 at 10:29 Sodium Chloride (Normal Saline Flush) 3 ml QSHIFT PRN IV AFTER MEDS AND BLOOD DRAWS; Start 10/18/18 at 11:00 Sodium Chloride 1,000 ml @ 75 mls/hr [id number] IV Last administered on 10/18/18at 11:20; Start 10/18/18 at 11:30; Stop 10/18/18 at 11:31; Status DC Nitroglycerin (Nitrostat) 0.4 mg PRN Q5MIN PRN SL CHEST PAIN; Start 10/18/18 at 11:00 Metoprolol Tartrate (Lopressor) 12.5 mg BID PO Last administered on 10/18/18at 11:26; Start 10/18/18 at 11:00 Atorvastatin Calcium (Lipitor) 20 mg QHS PO ; Start 10/18/18 at 21:00 Heparin Sodium/ Dextrose 500 ml @ 0 mls/hr CONT PRN PRN IV SEE PROTOCOL Last administered on 10/18/18at 11:26; Start 10/18/18 at 11:00 Heparin Sodium (Porcine) (Heparin Sodium) 2,300 unit PRN Q6HRS PRN IV FOR UFH LEVEL LESS THAN 0.2; Start 10/18/18 at 11:00 Allergies Allergies: Coded Allergies: No Known Drug Allergies (Unverified , 10/17/18) ROS General: No: Chills, Night Sweats, Fatigue, Malaise, Appetite PSYCHOLOGICAL ROS: No: Anxiety, Behavioral Disorder, Concentration difficultie, Decreased libido, Depression, Disorientation, Hallucinations, Hostility, Irritablity, Memory difficulties, Mood Swings, Obsessive thoughts, Physical abuse, Sexual abuse, Sleep disturbances, Suicidal ideation Eyes: No Blurry vision, No Decreased vision, No Double vision, No Dry eyes, No Excessive tearing, No Eye Pain, No Itchy Eyes, No Loss of vision, No Photophobia, No Scotomata, No Uses contacts, No Uses glasses HEENT: No: Heacaches, Visual Changes, Hearing change, Nasal congestion, Nasal discharge, Oral lesions, Sinus pain, Sore Throat, Epistaxis, Sneezing, Snoring, Tinnitus, Vertigo, Vocal changes ALLERGY AND IMMUNOLOGY: No: Hives, Insect Bite Sensitivity, Itchy/Watery Eyes, Nasal Congestion, Post Nasal Drip, Seasonal Allergies Hematological and Lymphatic: No: Bleeding Problems, Blood Clots, Blood Transfusions, Brusing, Night Sweats, Pallor, Swollen Lymph Nodes ENDOCRINE: No: Breast Changes, Galactorrhea, Hair Pattern Changes, Hot Flashes, Malaise/lethargy, Mood Swings, Palpitations, Polydipsia/polyuria, Skin Changes, Temperature Intolerance, Unexpected Weight Changes Respiratory: No: Cough, Hemoptysis, Orthopnea, Pleuritic Pain, Shortness of breath, SOB with excertion, Sputum Changes, Stridor, Tachypnea, Wheezing Cardiovascular: yes Chest Pain; No Palpitations, No Orthopnea, No Paroxysmal Noc. Dyspnea, No Edema, No Lt Headedness Gastrointestinal: No Nausea, No Vomiting, No Abdominal Pain, No Diarrhea, No Constipation, No Melena, No Hematochezia Genitourinary: No Dysuria, No Frequency, No Incontinence, No Hematuria, No Retention, No Discharge, No Urgency, No Pain, No Flank Pain Musculoskeletal: No Gait Disturbance, No Joint Pain, No Joint Stiffness, No Joint Swelling, No Muscle Pain, No Muscular Weakness, No Pain In:, No Swelling In: Neurological: No Behavorial Changes, No Bowel/Bladder ControlChng, No Confusion, No Dizziness, No Gait Disturbance, No Headaches, No Impaired Coord/balance, No Memory Loss, No Numbness/Tingling, No Seizures, No Speech Problems, No Tremors, No Visual Changes, No Weakness Skin: No Dry Skin, No Eczema, No Hair Changes, No Lumps, No Mole Changes, No Mottling, No Nail Changes, No Pruritus, No Rash, No Skin Lesion Changes, No Acne Physical Exam General: Alert, Oriented X3, No acute distress HEENT: Atraumatic, PERRLA, EOMI Lungs: Clear to auscultation Heart: Regular rate, Normal S1, Normal S2 Abdomen: Soft, No tenderness Extremities: No edema Skin: No significant lesion Neuro: Normal gait, Normal speech, Strength at 5/5 X4 ext, Normal tone, Sensation intact, Cranial nerves 3-12 NL, Reflexes 2+ Psych/Mental Status: Mental status NL MUSCULOSKELETAL: No deformity Vitals VITALS Vital Signs Date Time Temp Pulse Resp B/P (MAP) Pulse Ox O2 Delivery O2 Flow Rate FiO2 10/18/18 12:44 99 Room Air 2.0 10/18/18 11:26 85 165/81 10/18/18 10:50 21 10/18/18 07:30 98.0 98.0 Labs Labs Laboratory Tests Test 10/17/18 18:22 10/17/18 19:10 10/18/18 00:30 10/18/18 06:15 White Blood Count 6.3 x10^3/uL (4.0-11.0) Red Blood Count 5.38 x10^6/uL (4.30-5.70) Hemoglobin 16.7 g/dL (13.0-17.5) Hematocrit 46.5 % (39.0-53.0) Mean Corpuscular Volume 87 fL (79-100) Mean Corpuscular Hemoglobin 31 pg (25-35) Mean Corpuscular Hemoglobin Concent 36 g/dL (31-37) Red Cell Distribution Width 13.2 % (11.5-14.5) Platelet Count 199 x10^3/uL (140-400) Neutrophils (%) (Auto) 65 % (31-73) Lymphocytes (%) (Auto) 24 % (24-48) Monocytes (%) (Auto) 8 % (0-9) Eosinophils (%) (Auto) 2 % (0-3) Basophils (%) (Auto) 1 % (0-3) Neutrophils # (Auto) 4.1 x10^3/uL (1.8-7.7) Lymphocytes # (Auto) 1.5 x10^3/uL (1.0-4.8) Monocytes # (Auto) 0.5 x10^3/uL (0.0-1.1) Eosinophils # (Auto) 0.1 x10^3/uL (0.0-0.7) Basophils # (Auto) 0.0 x10^3/uL (0.0-0.2) Prothrombin Time 12.5 SEC (11.7-14.0) Prothromb Time International Ratio 1.0 (0.8-1.1) Activated Partial Thromboplast Time 27 SEC (24-38) D-Dimer (Bell) 0.28 ug/mlFEU (0.00-0.50) Sodium Level 140 mmol/L (136-145) 141 mmol/L (136-145) Potassium Level 4.0 mmol/L (3.5-5.1) 4.0 mmol/L (3.5-5.1) Chloride Level 102 mmol/L (98-107) 106 mmol/L (98-107) Carbon Dioxide Level 26 mmol/L (21-32) 23 mmol/L (21-32) Anion Gap 12 (6-14) 12 (6-14) Blood Urea Nitrogen 19 mg/dL (8-26) 18 mg/dL (8-26) Creatinine 1.4 mg/dL (0.7-1.3) 1.1 mg/dL (0.7-1.3) Estimated GFR (Cockcroft-Gault) 51.5 68.1 BUN/Creatinine Ratio 14 (6-20) Glucose Level 289 mg/dL (70-99) 235 mg/dL (70-99) Calcium Level 9.0 mg/dL (8.5-10.1) 8.5 mg/dL (8.5-10.1) Magnesium Level 2.0 mg/dL (1.8-2.4) 2.0 mg/dL (1.8-2.4) Total Bilirubin 0.6 mg/dL (0.2-1.0) Aspartate Amino Transf (AST/SGOT) 16 U/L (15-37) Alanine Aminotransferase (ALT/SGPT) 23 U/L (16-63) Alkaline Phosphatase 81 U/L (46-116) Creatine Kinase 78 U/L (39-308) Creatine Kinase MB (Mass) 1.9 ng/mL (0.0-3.6) Creatine Kinase MB Relative Index 2.4 % (0-4) Troponin I Quantitative 0.165 ng/mL (0.000-0.055) 0.410 ng/mL (0.000-0.055) 0.593 ng/mL (0.000-0.055) FD-Ruj-B-Type Natriuretic Peptide 59 pg/mL (0-124) Total Protein 7.2 g/dL (6.4-8.2) Albumin 4.0 g/dL (3.4-5.0) Albumin/Globulin Ratio 1.3 (1.0-1.7) Urine Collection Type Unknown Urine Color Yellow Urine Clarity Clear Urine pH 5.5 Urine Specific [place] >=1.030 Urine Protein Negative mg/dL (NEG-TRACE) Urine Glucose (UA) >=1000 mg/dL (NEG) Urine Ketones (Stick) Negative mg/dL (NEG) Urine Blood Negative (NEG) Urine Nitrite Negative (NEG) Urine Bilirubin Negative (NEG) Urine Urobilinogen Dipstick 0.2 mg/dL (0.2 mg/dL) Urine Leukocyte Esterase Negative (NEG) Urine RBC 0 /HPF (0-2) Urine WBC 0 /HPF (0-4) Urine Bacteria 0 /HPF (0-FEW) Triglycerides Level 444 mg/dL (0-150) Cholesterol Level 245 mg/dL (0-200) LDL Cholesterol, Calculated 130 mg/dL (0-100) VLDL Cholesterol, Calculated 89 mg/dL (0-40) Non-HDL Cholesterol Calculated 219 mg/dL (0-129) HDL Cholesterol 26 mg/dL (40-60) Cholesterol/HDL Ratio 9.4 Thyroid Stimulating Hormone (TSH) 1.935 uIU/mL (0.358-3.74) Test 10/18/18 12:20 Troponin I Quantitative 0.273 ng/mL (0.000-0.055) Laboratory Tests Test 10/17/18 18:22 10/17/18 19:10 10/18/18 00:30 10/18/18 06:15 White Blood Count 6.3 x10^3/uL (4.0-11.0) Red Blood Count 5.38 x10^6/uL (4.30-5.70) Hemoglobin 16.7 g/dL (13.0-17.5) Hematocrit 46.5 % (39.0-53.0) Mean Corpuscular Volume 87 fL (79-100) Mean Corpuscular Hemoglobin 31 pg (25-35) Mean Corpuscular Hemoglobin Concent 36 g/dL (31-37) Red Cell Distribution Width 13.2 % (11.5-14.5) Platelet Count 199 x10^3/uL (140-400) Neutrophils (%) (Auto) 65 % (31-73) Lymphocytes (%) (Auto) 24 % (24-48) Monocytes (%) (Auto) 8 % (0-9) Eosinophils (%) (Auto) 2 % (0-3) Basophils (%) (Auto) 1 % (0-3) Neutrophils # (Auto) 4.1 x10^3/uL (1.8-7.7) Lymphocytes # (Auto) 1.5 x10^3/uL (1.0-4.8) Monocytes # (Auto) 0.5 x10^3/uL (0.0-1.1) Eosinophils # (Auto) 0.1 x10^3/uL (0.0-0.7) Basophils # (Auto) 0.0 x10^3/uL (0.0-0.2) Prothrombin Time 12.5 SEC (11.7-14.0) Prothromb Time International Ratio 1.0 (0.8-1.1) Activated Partial Thromboplast Time 27 SEC (24-38) D-Dimer (Bell) 0.28 ug/mlFEU (0.00-0.50) Sodium Level 140 mmol/L (136-145) 141 mmol/L (136-145) Potassium Level 4.0 mmol/L (3.5-5.1) 4.0 mmol/L (3.5-5.1) Chloride Level 102 mmol/L (98-107) 106 mmol/L (98-107) Carbon Dioxide Level 26 mmol/L (21-32) 23 mmol/L (21-32) Anion Gap 12 (6-14) 12 (6-14) Blood Urea Nitrogen 19 mg/dL (8-26) 18 mg/dL (8-26) Creatinine 1.4 mg/dL (0.7-1.3) 1.1 mg/dL (0.7-1.3) Estimated GFR (Cockcroft-Gault) 51.5 68.1 BUN/Creatinine Ratio 14 (6-20) Glucose Level 289 mg/dL (70-99) 235 mg/dL (70-99) Calcium Level 9.0 mg/dL (8.5-10.1) 8.5 mg/dL (8.5-10.1) Magnesium Level 2.0 mg/dL (1.8-2.4) 2.0 mg/dL (1.8-2.4) Total Bilirubin 0.6 mg/dL (0.2-1.0) Aspartate Amino Transf (AST/SGOT) 16 U/L (15-37) Alanine Aminotransferase (ALT/SGPT) 23 U/L (16-63) Alkaline Phosphatase 81 U/L (46-116) Creatine Kinase 78 U/L (39-308) Creatine Kinase MB (Mass) 1.9 ng/mL (0.0-3.6) Creatine Kinase MB Relative Index 2.4 % (0-4) Troponin I Quantitative 0.165 ng/mL (0.000-0.055) 0.410 ng/mL (0.000-0.055) 0.593 ng/mL (0.000-0.055) FY-Ufz-W-Type Natriuretic Peptide 59 pg/mL (0-124) Total Protein 7.2 g/dL (6.4-8.2) Albumin 4.0 g/dL (3.4-5.0) Albumin/Globulin Ratio 1.3 (1.0-1.7) Urine Collection Type Unknown Urine Color Yellow Urine Clarity Clear Urine pH 5.5 Urine Specific [place] >=1.030 Urine Protein Negative mg/dL (NEG-TRACE) Urine Glucose (UA) >=1000 mg/dL (NEG) Urine Ketones (Stick) Negative mg/dL (NEG) Urine Blood Negative (NEG) Urine Nitrite Negative (NEG) Urine Bilirubin Negative (NEG) Urine Urobilinogen Dipstick 0.2 mg/dL (0.2 mg/dL) Urine Leukocyte Esterase Negative (NEG) Urine RBC 0 /HPF (0-2) Urine WBC 0 /HPF (0-4) Urine Bacteria 0 /HPF (0-FEW) Triglycerides Level 444 mg/dL (0-150) Cholesterol Level 245 mg/dL (0-200) LDL Cholesterol, Calculated 130 mg/dL (0-100) VLDL Cholesterol, Calculated 89 mg/dL (0-40) Non-HDL Cholesterol Calculated 219 mg/dL (0-129) HDL Cholesterol 26 mg/dL (40-60) Cholesterol/HDL Ratio 9.4 Thyroid Stimulating Hormone (TSH) 1.935 uIU/mL (0.358-3.74) Test 10/18/18 12:20 Troponin I Quantitative 0.273 ng/mL (0.000-0.055) Assessment/Plan Assessment/Plan The patient is a 63-year-old male with newly diagnosed diabetes and hypertension who was admitted to [facility] yesterday after presenting with a non-STEMI. The patient reports angina on minimal exertion for the past 2 months. Recently his chest pain occurs on minimal exertion and lasts longer. Upon admission he no EKG changes and a troponin of 0.59. His troponin is now downtrending. Coronary angiography today showed a tight and long proximal LAD stenosis, a tight proximal left circumflex lesion and a tight stenosis of the proximal RPDA. He is currently chest pain-free. I was consulted to consider the patient for surgical coronary revascularization. The patient is an appropriate candidate for CABG. He would require CABG � 2 or 3 (MCCLENDON to LAD, SVG to OM and possible SVG to distal RPDA depending on its size) The risks which include but are not limited to mortality 1-2%, stroke 1-2%, renal failure requiring dialysis 1%, pneumonia 5%, wound infection 5%, ventilator dependence 5%, reexploration for hemorrhage 5%, atrial fibrillation 20%, were explained to the patient who accepts these risks and agrees to proceed. Plan for CABG on Tuesday, October 21 Will obtain an echo, carotid duplex, bilateral lower extremity vein mapping, noncontrast CT of the chest. ALYSE NIEVES MD Oct 18, 2018 13:25
--- NOTE | 2018-10-18 13:51 | CARD ---
MR#: [id number] Date of Study: 10/18/2018 Ordering Physician: CRISTINA PEREZ, Referring Physician: Ander HANCOCK: Radha Thomas APPROVED REPORT Procedures Left heart catheterization Selective coronary angiogram Left ventriculogram Aortic root injection The patient is a 63-year-old male was admitted to the hospital with recurrent episodes of chest disco mfort. He also admitted with accelerated hypertension and newly diagnosis diabetes. In the setting of his recurrent and progressive chest pain heart catheterization was recommended. Risks and benefits w ere discussed with the patient and he agreed to proceed. After informed consent was obtained the area of the right radial artery was prepared in the usual man ner with Betadine, sterile draping and local anesthetic after an acceptable Anthony's test. A quick cat heter system was used to enter the right radial artery, a wire placed and a 6 Lebanese sheath placed ov er the wire. The standard mixture of heparin and antispasm medications was administered through the s allison. Using a J-wire, a 6 [place] JL 3.5 diagnostic catheter was advanced to the ascending aorta and used to engage the left coronary system. Sequential injections in various views were obtained. Using an [id number]-[id number]-[id number] exchange, a 6 [place] JR4 diagnostic catheter was then used to engage the right coron darryl artery system and sequential injections in various views were obtained. A pigtail catheter was ad vanced to the ascending aorta. A 30� ADDISON aortic root injection was performed. The catheter was then p assed to the left ventricle and a 30� AGUIRRE left ventriculogram was performed. Pullback pressures were measured. The catheter was removed from the patient. The sheath was removed and sealed in a standard fashion with a TR band. The patient was moved to the holding area in stable condition. Findings. Hemodynamics. Aortic root pressure 148/6, 16. Aortic root pressure 144/78. Coronaries. Left main. The left main was a moderately large vessel with no lesions. Left anterior descending. The LAD had a proximal large vessel. In its midportion there was a greater than 95% lesion with a long area of diffuse disease post lesion. Left circumflex. The left circumflex is a moderate size vessel. Had a mid greater than 95% lesion wit h diffuse disease ending in a more distal 90% lesion. Right coronary artery. The right coronary had a very distal 90% lesion. Aortic root. The aortic root appeared normal without evidence of enlargement or dissection. Left ventriculogram. The left ventricle showed intact LV systolic function with ejection fraction of 60% or greater. <Conclusion> Three-vessel coronary artery disease in a patient with newly diagnosed diabetes. Intact LV systolic function. We'll obtain a surgical evaluation. Signed by : Leonel Oscar MD Electronically Approved : 10/18/2018 13:51:11
--- NOTE | 2018-10-18 15:33 | RAD ---
PQRS Compliance Statement: One or more of the following individualized dose reduction techniques were utilized for this examination: 1. Automated exposure control 2. Adjustment of the mA and/or kV according to patient size 3. Use of iterative reconstruction technique CT chest without contrast 10/18/2018 1:35 PM INDICATION: Preoperative CABG COMPARISON: None available TECHNIQUE: Multiple axial CT images of the chest were obtained without intravenous contrast. Coronal and sagittal reformats are provided. FINDINGS: 2 mm solid noncalcified pulmonary nodule is identified in the right middle lobe (series 3, image 28). There is minimal subsegmental atelectasis along the azygos esophageal recess. There are no pleural effusions. No pulmonary vascular congestion or pneumothorax. Lungs are clear. Heart size is within normal limits. There is no pericardial effusion. No significant coronary vascular calcifications are present. Thoracic aorta is normal in course and caliber with minor calcified plaque. Thoracic esophagus is normal in appearance. No pathologically enlarged thoracic lymph nodes are identified. Thyroid gland is normal in appearance. No suspicious osseous normality is identified. Calcified gallbladder wall versus vicarious excretion of contrast. Contrast is noted within the renal pelvis. IMPRESSION: 1. There is a 2 mm solid noncalcified pulmonary nodule in the right middle lobe. Optional one-year follow-up chest CT may be of benefit to assess for stability. 2. Calcified gallbladder wall versus vicarious excretion of contrast within the gallbladder. Electronically signed by: Arpita Hernández MD (10/18/2018 3:31 PM) [id number]
[2018-10-18] MEDS: ASPIRIN ENTERIC COATED 81 MG TABLET.DR. PO SCH (15:37)
[2018-10-18] MEDS ORDERED: HYDROcodone/APAP 7.5/325MG 1 TAB TABLET PO PRN (16:15)
--- NOTE | 2018-10-18 16:26 | RAD ---
MR#: [id number] Date of Study: 10/18/2018 Ordering Physician: ALYSE NIEVES, Referring Physician: ALYSE NIEVES, Tech: Erwin Han MBA, RDMS, RVT, RDCS, RTR APPROVED REPORT Patient Location: IN-PATIENT Indications PRE-OP CABG Vein Measurements Great Saphenous Small Saphenous RightLeft RightLeft Saph-Fem. Junction 4.40mm4.10mmProximal 2.10mm1.90mm Mid Thigh 4.10mm3.10mmMid 1.60mm1.50mm Distal Thigh 4.10mm3.50mmDistal 2.00mm1.20mm Proximal Calf 2.90mm3.10mm Mid Calf 2.50mm2.80mm Distal Calf 2.70mm3.10mm Findings Grayscale images of the bilateral greater and lesser saphenous veins are grossly unremarkable. The gr eater saphenous veins have adequate patency and size for bypass conduit as noted above. The bilateral lesser saphenous veins appear to be small in caliber and likely less adequate for bypass conduit as noted above with respect to dimensions. Critical Notification Critical Value: No <Conclusion> 1. Adequate bypass conduit in the greater saphenous veins bilaterally. Signed by : Parag Hernandez, Electronically Approved : 10/18/2018 16:25:41
--- NOTE | 2018-10-18 16:28 | RAD ---
MR#: [id number] Date of Study: 10/18/2018 Ordering Physician: ALYSE NIEVES, Referring Physician: ALYSE NIEVES, Tech: Erwin Han MBA, RDMS, RVT, RDCS, RTR APPROVED REPORT Patient Location: IN-PATIENT Laterality:Bilateral Indications pre-op cabg Doppler Spectral Velocity Analysis Right Left pCCA 79/19 cm/spCCA 158/33 cm/s mCCA 88/22 cm/smCCA 120/24 cm/s dCCA 82/23 cm/sdCCA 114/26 cm/s Bulb 67/25 cm/sBulb 112/22 cm/s ECA 176/ cm/sECA 170/ cm/s pICA 77/28 cm/spICA 116/36 cm/s Martin 94/39 cm/smICA 131/44 cm/s dICA 75/28 cm/sdICA 105/32 cm/s Vert. 41/ cm/sVert. 31/ cm/s Subcl. 119/ cm/sSubcl. 104/ cm/s ICA/CCA 1.07ICA/CCA 0.83 Findings Grayscale images of the bilateral common, internal and external carotid vessels reveal mild diffuse i ntimal hyperplasia with mild nonobstructive plaque. Spectral waveforms and color Doppler of the right internal carotid artery are grossly within normal l imits. No high-grade stenosis identified. On the left there is likely mild to moderate stenosis in the range of 50% by velocity criteria. Other hazel no significant high-grade stenosis noted. Bilateral vertebral velocities are antegrade although not well visualized. Grossly no significant ICA to CCA ratio abnormalities. Critical Notification Critical Value: No <Conclusion> 1. No significant right-sided disease, mild to moderate left-sided disease. Signed by : Parag Hernandez, Electronically Approved : 10/18/2018 16:27:46
[2018-10-18 18:12] LABS: PROTHROMBIN TIME PATIENT 12.7 SEC (11.7-14.0)
[2018-10-18] MEDS ORDERED: ATORVASTATIN CALCIUM 20 MG TABLET PO SCH (21:00)
[2018-10-18] MEDS: MORPHINE SULFATE 2 MG/ML VIAL. IV PRN (21:00)
[2018-10-18] MEDS: ATORVASTATIN CALCIUM 40 MG TABLET. PO SCH (22:07)
[2018-10-18] MEDS: METOPROLOL TART IMMED RELEASE 25 MG TABLET. PO SCH (22:07)
[2018-10-18] MEDS: ZOLPIDEM 5 MG TABLET. PO PRN (22:19)
[2018-10-19 00:09] LABS: HEMOGLOBIN A1C 8.7 % (4.8-5.6)
[2018-10-19 03:00] VITALS: BP 127/70
[2018-10-19 04:54] LABS: HEMATOCRIT 44.7 % (39.0-53.0); HEMOGLOBIN 15.8 g/dL (13.0-17.5); RED BLOOD COUNT 5.14 x10^6/uL (4.30-5.70); WHITE BLOOD COUNT 5.6 x10^3/uL (4.0-11.0)
[2018-10-19 05:28] LABS: ALBUMIN 3.4 g/dL (3.4-5.0); ALBUMIN/GLOBULIN RATIO 1.1 (1.0-1.7); CALCIUM 8.6 mg/dL (8.5-10.1); CREATININE 1.1 mg/dL (0.7-1.3); GFR 68.1; POTASSIUM 3.8 mmol/L (3.5-5.1); TOTAL BILIRUBIN 0.7 mg/dL (0.2-1.0); TOTAL PROTEIN 6.4 g/dL (6.4-8.2)
[2018-10-19 07:00] VITALS: BP 140/81
[2018-10-19] MEDS: ASPIRIN ENTERIC COATED 81 MG TABLET.DR. PO SCH (08:30)
[2018-10-19] MEDS: METOPROLOL TART IMMED RELEASE 25 MG TABLET. PO SCH ×2 (08:30→21:08)
--- NOTE | 2018-10-19 08:53 | CARD ---
MR#: [id number] Date of Study: 10/19/2018 Ordering Physician: CRISTINA PEREZ, Referring Physician: CRISTINA PEREZ, Tech: Jessica Staton ALICE APPROVED REPORT EXAM: Two-dimensional and M-mode echocardiogram with Doppler and color Doppler. Other Information Quality : AverageHR: 82bpm Rhythm : Other INDICATION Non STEMI 2D DIMENSIONS RVDd2.9 (2.9-3.5cm)Left Atrium(2D)3.9 (1.6-4.0cm) IVSd1.2 (0.7-1.1cm)LVDd4.0 (3.9-5.9cm) LVOT Diameter2.0 (1.8-2.4cm)PWd1.1 (0.7-1.1cm) LVDs2.7 (2.5-4.0cm)FS (%) 32.5 % SV43.1 mlLVEF(%)61.5 (>50%) M-Mode DIMENSIONS Left Atrium(MM)3.66 (2.5-4.0cm)Aortic Root2.93 (2.2-3.7cm) Aortic Valve AoV Peak Flo.120.1cm/sAoV VTI25.9cm AO Peak GR.5.8mmHgLVOT VTI 11.34cm AO Mean GR.4mmHgAVA (VTI)1.50cm2 Mitral Valve MV E Xlfdwruf83.0cm/sMV DECEL [id number] MV A Xthtelew38.8cm/sE/A Ratio1.3 MV A [id number] TDI Lateral E' P. V12.16cm/sMedial E' P. V7.53cm/s E/Lateral E'7.3E/Medial E'11.8 Tricuspid Valve TR P. Hrgqbzpw124ai/sRAP [id number] TR Peak Gr.[id number] LEFT VENTRICLE The left ventricle is normal size. There is mild concentric left ventricular hypertrophy. The left ve ntricular systolic function is normal and the ejection fraction is within normal range. The Ejection Fraction is 55-60%. There is normal LV segmental wall motion. The left ventricular diastolic function and filling is normal for age. RIGHT VENTRICLE The right ventricle is normal size. There is normal right ventricular wall thickness. The right ventr icular systolic function is normal. ATRIA The left atrium size is normal. The right atrium size is normal. The interatrial septum is intact wit h no evidence for an atrial septal defect or patent foramen ovale as noted on 2-D or Doppler imaging. AORTIC VALVE The aortic valve is normal in structure and function. The aortic valve is trileaflet. Doppler and Col or Flow revealed no significant aortic regurgitation. There is no significant aortic valvular stenosi s. MITRAL VALVE The mitral valve is normal in structure and function. There is no evidence of mitral valve prolapse. There is no mitral valve stenosis. Doppler and Color-flow revealed mild mitral regurgitation. TRICUSPID VALVE The tricuspid valve is normal in structure and function. Doppler and Color Flow revealed trace tricus pid regurgitation. The PA pressure was estimated at 26 mmHg. There is no tricuspid valve prolapse or vegetation. There is no tricuspid valve stenosis. PULMONIC VALVE The pulmonic valve is not well visualized. GREAT VESSELS The aortic root is normal in size. The ascending aorta is normal in size. The IVC is normal in size a nd collapses >50% with inspiration. PERICARDIAL EFFUSION There is no evidence of significant pericardial effusion. Critical Notification Critical Value: No <Conclusion> The left ventricular systolic function is normal and the ejection fraction is within normal range. Th e Ejection Fraction is 55-60%. There is normal LV segmental wall motion. Signed by : Parag Hernandez, Electronically Approved : 10/19/2018 08:53:20
[2018-10-19] MEDS: HEPARIN 25,000UTS/500ML PREMIX 500 ML IV PRN (09:05)
[2018-10-19] MEDS: MORPHINE SULFATE 2 MG/ML VIAL. IV PRN ×2 (09:21→15:32)
[2018-10-19 11:00] VITALS: BP 151/86
--- NOTE | 2018-10-19 11:21 | PDOC ---
PROGRESS NOTES Chief Complaint Chief Complaint 1. NSTEMI 2. HTN: labile, new 3. HLP: new 4. DM2: new. hgba1c 8.7 5. Obesity 6. Suspect CKD History of Present Illness History of Present Illness NOt known dm but hgba1c is 8.7 BS on the high side Pt has no complaints Planned on CABG tuesday per [facility] note PLAN: Start metformin, hold 1-2 days prior to cabg Start glyburide with meals PRe op work up ordered by [facility] prior to CABG tuesday Vitals Vitals Vital Signs Date Time Temp Pulse Resp B/P (MAP) Pulse Ox O2 Delivery O2 Flow Rate FiO2 10/19/18 11:07 15 96 Room Air 2.0 10/19/18 08:31 83 140/81 10/19/18 07:00 97.5 97.5 Physical Exam General: Alert, Oriented X3, Cooperative, No acute distress Heart: Regular rate (SR), Normal S1, Normal S2, No murmurs Abdomen: Soft, No tenderness, Other (obese) Extremities: No cyanosis, No edema Skin: No breakdown, No significant lesion Labs LABS Laboratory Tests Test 10/18/18 12:20 10/18/18 17:15 10/18/18 22:45 10/19/18 04:25 Troponin I Quantitative 0.273 ng/mL (0.000-0.055) Prothrombin Time 12.7 SEC (11.7-14.0) Prothromb Time International Ratio 1.0 (0.8-1.1) Activated Partial Thromboplast Time 43 SEC (24-38) Heparin Anti-Xa Act, Unfractionated 0.34 IU/mL (0.30-0.70) 0.30 IU/mL (0.30-0.70) 0.31 IU/mL (0.30-0.70) White Blood Count 5.6 x10^3/uL (4.0-11.0) Red Blood Count 5.14 x10^6/uL (4.30-5.70) Hemoglobin 15.8 g/dL (13.0-17.5) Hematocrit 44.7 % (39.0-53.0) Mean Corpuscular Volume 87 fL (79-100) Mean Corpuscular Hemoglobin 31 pg (25-35) Mean Corpuscular Hemoglobin Concent 35 g/dL (31-37) Red Cell Distribution Width 13.0 % (11.5-14.5) Platelet Count 171 x10^3/uL (140-400) Sodium Level 142 mmol/L (136-145) Potassium Level 3.8 mmol/L (3.5-5.1) Chloride Level 106 mmol/L (98-107) Carbon Dioxide Level 28 mmol/L (21-32) Anion Gap 8 (6-14) Blood Urea Nitrogen 13 mg/dL (8-26) Creatinine 1.1 mg/dL (0.7-1.3) Estimated GFR (Cockcroft-Gault) 68.1 BUN/Creatinine Ratio 12 (6-20) Glucose Level 181 mg/dL (70-99) Calcium Level 8.6 mg/dL (8.5-10.1) Total Bilirubin 0.7 mg/dL (0.2-1.0) Aspartate Amino Transf (AST/SGOT) 21 U/L (15-37) Alanine Aminotransferase (ALT/SGPT) 21 U/L (16-63) Alkaline Phosphatase 69 U/L (46-116) Total Protein 6.4 g/dL (6.4-8.2) Albumin 3.4 g/dL (3.4-5.0) Albumin/Globulin Ratio 1.1 (1.0-1.7) Review of Systems Review of Systems no cp, no inc in soa, no abd pain, nv,d, Assessment and Plan Assessmemt and Plan Problems Medical Problems: (1) 3-vessel CAD Status: Chronic (2) ACS (acute coronary syndrome) Status: Acute (3) CKD (chronic kidney disease) Status: Chronic (4) Elevated troponin Status: Acute (5) HLD (hyperlipidemia) Status: Chronic (6) HTN (hypertension) Status: Chronic (7) Morbid obesity Status: Chronic (8) NSTEMI (non-ST elevated myocardial infarction) Status: Acute Comment Review of Relevant I have reviewed the following items rickie (where applicable) has been applied. Labs Laboratory Tests Test 10/17/18 18:22 10/17/18 19:10 10/18/18 00:30 10/18/18 06:15 White Blood Count 6.3 x10^3/uL (4.0-11.0) Red Blood Count 5.38 x10^6/uL (4.30-5.70) Hemoglobin 16.7 g/dL (13.0-17.5) Hematocrit 46.5 % (39.0-53.0) Mean Corpuscular Volume 87 fL (79-100) Mean Corpuscular Hemoglobin 31 pg (25-35) Mean Corpuscular Hemoglobin Concent 36 g/dL (31-37) Red Cell Distribution Width 13.2 % (11.5-14.5) Platelet Count 199 x10^3/uL (140-400) Neutrophils (%) (Auto) 65 % (31-73) Lymphocytes (%) (Auto) 24 % (24-48) Monocytes (%) (Auto) 8 % (0-9) Eosinophils (%) (Auto) 2 % (0-3) Basophils (%) (Auto) 1 % (0-3) Neutrophils # (Auto) 4.1 x10^3/uL (1.8-7.7) Lymphocytes # (Auto) 1.5 x10^3/uL (1.0-4.8) Monocytes # (Auto) 0.5 x10^3/uL (0.0-1.1) Eosinophils # (Auto) 0.1 x10^3/uL (0.0-0.7) Basophils # (Auto) 0.0 x10^3/uL (0.0-0.2) Prothrombin Time 12.5 SEC (11.7-14.0) Prothromb Time International Ratio 1.0 (0.8-1.1) Activated Partial Thromboplast Time 27 SEC (24-38) D-Dimer (Bell) 0.28 ug/mlFEU (0.00-0.50) Sodium Level 140 mmol/L (136-145) 141 mmol/L (136-145) Potassium Level 4.0 mmol/L (3.5-5.1) 4.0 mmol/L (3.5-5.1) Chloride Level 102 mmol/L (98-107) 106 mmol/L (98-107) Carbon Dioxide Level 26 mmol/L (21-32) 23 mmol/L (21-32) Anion Gap 12 (6-14) 12 (6-14) Blood Urea Nitrogen 19 mg/dL (8-26) 18 mg/dL (8-26) Creatinine 1.4 mg/dL (0.7-1.3) 1.1 mg/dL (0.7-1.3) Estimated GFR (Cockcroft-Gault) 51.5 68.1 BUN/Creatinine Ratio 14 (6-20) Glucose Level 289 mg/dL (70-99) 235 mg/dL (70-99) Calcium Level 9.0 mg/dL (8.5-10.1) 8.5 mg/dL (8.5-10.1) Magnesium Level 2.0 mg/dL (1.8-2.4) 2.0 mg/dL (1.8-2.4) Total Bilirubin 0.6 mg/dL (0.2-1.0) Aspartate Amino Transf (AST/SGOT) 16 U/L (15-37) Alanine Aminotransferase (ALT/SGPT) 23 U/L (16-63) Alkaline Phosphatase 81 U/L (46-116) Creatine Kinase 78 U/L (39-308) Creatine Kinase MB (Mass) 1.9 ng/mL (0.0-3.6) Creatine Kinase MB Relative Index 2.4 % (0-4) Troponin I Quantitative 0.165 ng/mL (0.000-0.055) 0.410 ng/mL (0.000-0.055) 0.593 ng/mL (0.000-0.055) IN-Ooo-K-Type Natriuretic Peptide 59 pg/mL (0-124) Total Protein 7.2 g/dL (6.4-8.2) Albumin 4.0 g/dL (3.4-5.0) Albumin/Globulin Ratio 1.3 (1.0-1.7) Urine Collection Type Unknown Urine Color Yellow Urine Clarity Clear Urine pH 5.5 Urine Specific [place] >=1.030 Urine Protein Negative mg/dL (NEG-TRACE) Urine Glucose (UA) >=1000 mg/dL (NEG) Urine Ketones (Stick) Negative mg/dL (NEG) Urine Blood Negative (NEG) Urine Nitrite Negative (NEG) Urine Bilirubin Negative (NEG) Urine Urobilinogen Dipstick 0.2 mg/dL (0.2 mg/dL) Urine Leukocyte Esterase Negative (NEG) Urine RBC 0 /HPF (0-2) Urine WBC 0 /HPF (0-4) Urine Bacteria 0 /HPF (0-FEW) Hemoglobin A1c 8.7 % (4.8-5.6) Triglycerides Level 444 mg/dL (0-150) Cholesterol Level 245 mg/dL (0-200) LDL Cholesterol, Calculated 130 mg/dL (0-100) VLDL Cholesterol, Calculated 89 mg/dL (0-40) Non-HDL Cholesterol Calculated 219 mg/dL (0-129) HDL Cholesterol 26 mg/dL (40-60) Cholesterol/HDL Ratio 9.4 Thyroid Stimulating Hormone (TSH) 1.935 uIU/mL (0.358-3.74) Test 10/18/18 12:20 10/18/18 17:15 10/18/18 22:45 10/19/18 04:25 Troponin I Quantitative 0.273 ng/mL (0.000-0.055) Prothrombin Time 12.7 SEC (11.7-14.0) Prothromb Time International Ratio 1.0 (0.8-1.1) Activated Partial Thromboplast Time 43 SEC (24-38) Heparin Anti-Xa Act, Unfractionated 0.34 IU/mL (0.30-0.70) 0.30 IU/mL (0.30-0.70) 0.31 IU/mL (0.30-0.70) White Blood Count 5.6 x10^3/uL (4.0-11.0) Red Blood Count 5.14 x10^6/uL (4.30-5.70) Hemoglobin 15.8 g/dL (13.0-17.5) Hematocrit 44.7 % (39.0-53.0) Mean Corpuscular Volume 87 fL (79-100) Mean Corpuscular Hemoglobin 31 pg (25-35) Mean Corpuscular Hemoglobin Concent 35 g/dL (31-37) Red Cell Distribution Width 13.0 % (11.5-14.5) Platelet Count 171 x10^3/uL (140-400) Sodium Level 142 mmol/L (136-145) Potassium Level 3.8 mmol/L (3.5-5.1) Chloride Level 106 mmol/L (98-107) Carbon Dioxide Level 28 mmol/L (21-32) Anion Gap 8 (6-14) Blood Urea Nitrogen 13 mg/dL (8-26) Creatinine 1.1 mg/dL (0.7-1.3) Estimated GFR (Cockcroft-Gault) 68.1 BUN/Creatinine Ratio 12 (6-20) Glucose Level 181 mg/dL (70-99) Calcium Level 8.6 mg/dL (8.5-10.1) Total Bilirubin 0.7 mg/dL (0.2-1.0) Aspartate Amino Transf (AST/SGOT) 21 U/L (15-37) Alanine Aminotransferase (ALT/SGPT) 21 U/L (16-63) Alkaline Phosphatase 69 U/L (46-116) Total Protein 6.4 g/dL (6.4-8.2) Albumin 3.4 g/dL (3.4-5.0) Albumin/Globulin Ratio 1.1 (1.0-1.7) Laboratory Tests Test 10/18/18 12:20 10/18/18 17:15 10/18/18 22:45 10/19/18 04:25 Troponin I Quantitative 0.273 ng/mL (0.000-0.055) Prothrombin Time 12.7 SEC (11.7-14.0) Prothromb Time International Ratio 1.0 (0.8-1.1) Activated Partial Thromboplast Time 43 SEC (24-38) Heparin Anti-Xa Act, Unfractionated 0.34 IU/mL (0.30-0.70) 0.30 IU/mL (0.30-0.70) 0.31 IU/mL (0.30-0.70) White Blood Count 5.6 x10^3/uL (4.0-11.0) Red Blood Count 5.14 x10^6/uL (4.30-5.70) Hemoglobin 15.8 g/dL (13.0-17.5) Hematocrit 44.7 % (39.0-53.0) Mean Corpuscular Volume 87 fL (79-100) Mean Corpuscular Hemoglobin 31 pg (25-35) Mean Corpuscular Hemoglobin Concent 35 g/dL (31-37) Red Cell Distribution Width 13.0 % (11.5-14.5) Platelet Count 171 x10^3/uL (140-400) Sodium Level 142 mmol/L (136-145) Potassium Level 3.8 mmol/L (3.5-5.1) Chloride Level 106 mmol/L (98-107) Carbon Dioxide Level 28 mmol/L (21-32) Anion Gap 8 (6-14) Blood Urea Nitrogen 13 mg/dL (8-26) Creatinine 1.1 mg/dL (0.7-1.3) Estimated GFR (Cockcroft-Gault) 68.1 BUN/Creatinine Ratio 12 (6-20) Glucose Level 181 mg/dL (70-99) Calcium Level 8.6 mg/dL (8.5-10.1) Total Bilirubin 0.7 mg/dL (0.2-1.0) Aspartate Amino Transf (AST/SGOT) 21 U/L (15-37) Alanine Aminotransferase (ALT/SGPT) 21 U/L (16-63) Alkaline Phosphatase 69 U/L (46-116) Total Protein 6.4 g/dL (6.4-8.2) Albumin 3.4 g/dL (3.4-5.0) Albumin/Globulin Ratio 1.1 (1.0-1.7) Medications Current Medications Aspirin (Miri Aspirin) 325 mg 1X ONCE PO Last administered on 10/17/18at 19:02; Start 10/17/18 at 18:30; Stop 10/17/18 at 19:02; Status DC Enoxaparin Sodium (Lovenox 100mg Syringe) 90 mg 1X ONCE SQ Last administered on 10/17/18at 19:51; Start 10/17/18 at 19:15; Stop 10/17/18 at 19:23; Status DC Ondansetron HCl (Zofran) 4 mg PRN Q6HRS PRN IV NAUSEA/VOMITING; Start 10/17/18 at 20:45 Acetaminophen (Tylenol) 500 mg PRN Q6HRS PRN PO MILD PAIN / TEMP; Start 10/17/18 at 20:45 Acetaminophen/ Codeine Phosphate (Tylenol #3) 1 tab PRN Q6HRS PRN PO MODERATE PAIN Last administered on 10/18/18at 11:26; Start 10/17/18 at 20:45 Zolpidem Tartrate (Ambien) 5 mg PRN QHS PRN PO INSOMNIA Last administered on 10/18/18at 22:19; Start 10/17/18 at 20:45; Stop 10/19/18 at 08:30; Status DC Labetalol HCl (Normodyne Iv Push) 20 mg PRN Q2HR PRN IVP HYPERTENSION; Start 10/17/18 at 20:45 Sodium Chloride 1,000 ml @ 100 mls/hr 1X ONCE IV Last administered on 10/17/18at 23:32; Start 10/17/18 at 20:45; Stop 10/18/18 at 06:44; Status DC Iodixanol (Visipaque 320) 100 ml STK-MED ONCE .ROUTE ; Start 10/18/18 at 09:17; Stop 10/18/18 at 09:17; Status DC Lidocaine HCl (Lidocaine 1% 20ml Vial) 20 ml STK-MED ONCE .ROUTE ; Start 10/18/18 at 09:17; Stop 10/18/18 at 09:17; Status DC Heparin Sodium/ Sodium Chloride 1,000 ml @ As Directed STK-MED ONCE .ROUTE ; Start 10/18/18 at 09:17; Stop 10/18/18 at 09:17; Status DC Fentanyl Citrate (Fentanyl 2ml Vial) 100 mcg STK-MED ONCE .ROUTE ; Start 10/18/18 at 09:24; Stop 10/18/18 at 09:24; Status DC Midazolam HCl (Versed) 5 mg STK-MED ONCE .ROUTE ; Start 10/18/18 at 09:24; Stop 10/18/18 at 09:24; Status DC Heparin Sodium (Porcine) (Heparin Sodium) 10,000 unit STK-MED ONCE .ROUTE ; Start 10/18/18 at 09:26; Stop 10/18/18 at 09:26; Status DC Verapamil HCl (Verapamil) 5 mg STK-MED ONCE .ROUTE ; Start 10/18/18 at 09:26; Stop 10/18/18 at 09:26; Status DC Nitroglycerin (Nitroglycerin) 200 mcg STK-MED ONCE .ROUTE ; Start 10/18/18 at 09:26; Stop 10/18/18 at 09:26; Status DC Iodixanol (Visipaque 320) 100 ml STK-MED ONCE .ROUTE ; Start 10/18/18 at 09:53; Stop 10/18/18 at 09:53; Status DC Nitroglycerin (Nitroglycerin) 200 mcg 1X ONCE IART Last administered on at 10:50; Start 10/18/18 at 10:15; Stop 10/18/18 at 10:21; Status DC Verapamil HCl (Verapamil) 2.5 mg 1X ONCE IART Last administered on 10/18/18at 10:50; Start 10/18/18 at 10:15; Stop 10/18/18 at 10:21; Status DC Heparin Sodium (Porcine) (Heparin Sodium) 2,500 unit 1X ONCE IART Last administered on 10/18/18at 10:50; Start 10/18/18 at 10:15; Stop 10/18/18 at 10:21; Status DC Heparin Sodium/ Sodium Chloride (HEPARIN for ARTERIAL LINE FLUSH) 1,000 unit 1X ONCE IART Last administered on 10/18/18at 10:50; Start 10/18/18 at 10:15; Stop 10/18/18 at 10:21; Status DC Heparin Sodium/ Sodium Chloride (HEPARIN for ARTERIAL LINE FLUSH) 1,000 unit 1X ONCE IART Last administered on 10/18/18at 10:50; Start 10/18/18 at 10:15; Stop 10/18/18 at 10:21; Status DC Midazolam HCl (Versed) 5 mg 1X ONCE IV Last administered on 10/18/18at 10:50; Start 10/18/18 at 10:15; Stop 10/18/18 at 10:21; Status DC Fentanyl Citrate (Fentanyl 2ml Vial) 100 mcg 1X ONCE IV Last administered on 10/18/18at 10:50; Start 10/18/18 at 10:15; Stop 10/18/18 at 10:21; Status DC Lidocaine HCl (Lidocaine 1% 20ml Vial) 20 ml 1X ONCE INJ Last administered on 10/18/18at 10:50; Start 10/18/18 at 10:15; Stop 10/18/18 at 10:21; Status DC Iodixanol (Visipaque 320) 100 ml 1X ONCE IART Last administered on 10/18/18at 10:50; Start 10/18/18 at 10:15; Stop 10/18/18 at 10:21; Status DC Info (CONTRAST GIVEN -- Rx MONITORING) 1 each PRN DAILY PRN MC SEE COMMENTS; Start 10/18/18 at 10:30; Stop 10/20/18 at 10:29 Sodium Chloride (Normal Saline Flush) 3 ml QSHIFT PRN IV AFTER MEDS AND BLOOD DRAWS; Start 10/18/18 at 11:00 Sodium Chloride 1,000 ml @ 75 mls/hr [id number] IV Last administered on 10/18/18at 11:20; Start 10/18/18 at 11:30; Stop 10/18/18 at 11:31; Status DC Nitroglycerin (Nitrostat) 0.4 mg PRN Q5MIN PRN SL CHEST PAIN; Start 10/18/18 at 11:00 Metoprolol Tartrate (Lopressor) 12.5 mg BID PO Last administered on 10/18/18at 11:26; Start 10/18/18 at 11:00; Stop 10/18/18 at 15:10; Status DC Atorvastatin Calcium (Lipitor) 20 mg QHS PO ; Start 10/18/18 at 21:00; Stop 10/18/18 at 15:07; Status DC Heparin Sodium/ Dextrose 500 ml @ 0 mls/hr CONT PRN PRN IV SEE PROTOCOL Last administered on 10/19/18at 09:06; Start 10/18/18 at 11:00 Heparin Sodium (Porcine) (Heparin Sodium) 2,300 unit PRN Q6HRS PRN IV FOR UFH LEVEL LESS THAN 0.2; Start 10/18/18 at 11:00 Cefazolin Sodium/ Dextrose 50 ml @ 100 mls/hr 1X PREOP PRN IV PRIOR TO PROCEDURE; Start 10/19/18 at 06:00; Stop 10/19/18 at 14:00 Atorvastatin Calcium (Lipitor) 40 mg QHS PO Last administered on 10/18/18at 22:19; Start 10/18/18 at 21:00 Metoprolol Tartrate (Lopressor) 25 mg BID PO Last administered on 10/19/18at 08:31; Start 10/18/18 at 21:00 Aspirin (Ecotrin) 81 mg [id number] PO Last administered on 10/19/18at 08:31; Start 10/18/18 at 15:15 Acetaminophen/ Hydrocodone Bitart (Lortab 7.5/325) 1 tab PRN Q6HRS PRN PO PAIN SEVERE Last administered on 10/18/18at 16:49; Start 10/18/18 at 16:15 Alprazolam (Xanax) 0.5 mg Q6HRS PRN PO ANXIETY / AGITATION; Start 10/18/18 at 19:15 Morphine Sulfate (Morphine Sulfate) 2 mg PRN Q2HR PRN IV PAIN Last administered on 10/19/18at 09:26; Start 10/18/18 at 20:00 Zolpidem Tartrate (Ambien) 5 mg PRN QHS PRN PO INSOMNIA; Start 10/19/18 at 08:30 Vitals/I & O Vital Sign - Last 24 Hours 10/18/18 10/18/18 10/18/18 10/18/18 11:26 11:26 11:30 12:00 Pulse 85 80 68 Resp 18 17 B/P (MAP) 165/81 Pulse Ox 97 98 O2 Delivery Room Air 10/18/18 10/18/18 10/18/18 10/18/18 12:30 12:44 12:44 13:00 Pulse 76 82 Pulse Ox 98 99 99 97 O2 Delivery Room Air Room Air O2 Flow Rate 2.0 2.0 10/18/18 10/18/18 10/18/18 10/18/18 14:00 14:26 15:00 16:00 Temp 98.0 98.0 Pulse 80 83 80 78 Resp 20 B/P (MAP) 147/69 (95) Pulse Ox 98 97 96 95 O2 Delivery Room Air 10/18/18 10/18/18 10/18/18 10/18/18 16:49 18:09 19:30 20:00 Temp 97.9 97.9 Pulse 80 B/P (MAP) 157/87 (110) Pulse Ox 97 97 98 O2 Delivery Room Air Room Air Room Air Room Air O2 Flow Rate 2.0 2.0 2.0 10/18/18 10/18/18 10/18/18 10/18/18 21:00 22:19 22:19 23:00 Temp 97.5 97.5 Pulse 80 82 Resp 16 18 20 B/P (MAP) 157/87 164/87 (112) Pulse Ox 97 97 97 O2 Delivery Room Air Room Air Room Air O2 Flow Rate 2.0 10/19/18 10/19/18 10/19/18 10/19/18 03:00 07:00 08:31 09:26 Temp 97.4 97.5 97.4 97.5 Pulse 65 83 83 Resp 20 20 B/P (MAP) 127/70 (89) 140/81 (100) 140/81 Pulse Ox 96 96 96 O2 Delivery Room Air Room Air Room Air O2 Flow Rate 2.0 10/19/18 11:07 Resp 15 Pulse Ox 96 O2 Delivery Room Air O2 Flow Rate 2.0 Intake and Output 10/18/18 10/18/18 10/19/18 14:59 22:59 06:59 Intake Total 800 ml 800 ml Output Total 520 ml 1000 ml Balance -520 ml 800 ml -200 ml LIZA WILLETT MD Oct 19, 2018 11:21
[2018-10-19] MEDS: metFORMIN 500 MG TABLET PO SCH (11:22)
[2018-10-19] MEDS ORDERED: DEXTROSE 50% 25 GM / 50ML DISP.SYRIN. IV PRN (11:30)
[2018-10-19] MEDS ORDERED: IV DEXTROSE 5% 250 ML BAG. IV PRN (11:30)
[2018-10-19] MEDS: INSULIN LISPRO 300 UNITS/3 ML VIAL. SQ SCH ×2 (12:12→17:52)
--- NOTE | 2018-10-19 13:01 | PDOC ---
CARDIO Progress Notes Date and Time Date of Service 10/19/2018 Time of Evaluation 1230 Subjective Subjective: No shortness of breath, No Palpitations, Other (still has exertional CP) Vitals Vitals Vital Signs Date Time Temp Pulse Resp B/P (MAP) Pulse Ox O2 Delivery O2 Flow Rate FiO2 10/19/18 11:07 15 96 Room Air 2.0 10/19/18 11:00 98.1 87 151/86 (107) 98.1 Weight Weight [ ] Input and Output Intake and Output Intake and Output 10/19/18 06:59 Intake Total 1600 ml Output Total 1520 ml Balance 80 ml Intake Other 1600 ml Output Urine Total 1520 ml Laboratory Labs Laboratory Tests Test 10/18/18 17:15 10/18/18 22:45 10/19/18 04:25 10/19/18 11:31 Prothrombin Time 12.7 SEC (11.7-14.0) Prothromb Time International Ratio 1.0 (0.8-1.1) Activated Partial Thromboplast Time 43 SEC (24-38) Heparin Anti-Xa Act, Unfractionated 0.34 IU/mL (0.30-0.70) 0.30 IU/mL (0.30-0.70) 0.31 IU/mL (0.30-0.70) White Blood Count 5.6 x10^3/uL (4.0-11.0) Red Blood Count 5.14 x10^6/uL (4.30-5.70) Hemoglobin 15.8 g/dL (13.0-17.5) Hematocrit 44.7 % (39.0-53.0) Mean Corpuscular Volume 87 fL (79-100) Mean Corpuscular Hemoglobin 31 pg (25-35) Mean Corpuscular Hemoglobin Concent 35 g/dL (31-37) Red Cell Distribution Width 13.0 % (11.5-14.5) Platelet Count 171 x10^3/uL (140-400) Sodium Level 142 mmol/L (136-145) Potassium Level 3.8 mmol/L (3.5-5.1) Chloride Level 106 mmol/L (98-107) Carbon Dioxide Level 28 mmol/L (21-32) Anion Gap 8 (6-14) Blood Urea Nitrogen 13 mg/dL (8-26) Creatinine 1.1 mg/dL (0.7-1.3) Estimated GFR (Cockcroft-Gault) 68.1 BUN/Creatinine Ratio 12 (6-20) Glucose Level 181 mg/dL (70-99) Calcium Level 8.6 mg/dL (8.5-10.1) Total Bilirubin 0.7 mg/dL (0.2-1.0) Aspartate Amino Transf (AST/SGOT) 21 U/L (15-37) Alanine Aminotransferase (ALT/SGPT) 21 U/L (16-63) Alkaline Phosphatase 69 U/L (46-116) Total Protein 6.4 g/dL (6.4-8.2) Albumin 3.4 g/dL (3.4-5.0) Albumin/Globulin Ratio 1.1 (1.0-1.7) Glucose (Fingerstick) 232 mg/dL (70-99) Physical Exam HEENT: Neck Supple W Full Motion Chest: Symmetric LUNGS: Clear to Auscultation Heart: S1S2, RRR (SR with PACs) Abdomen: Soft N/T, Other (obese) Extremities: No Calf Tenderness Neurology: alert, oriented, follow commands Other Exams right wrist arteriotomy site intact, no erythema or swelling, neurovascular status intact. Assessment Assessment 1. NSTEMI: LHC revealed 3vd. EF and WM nml 2. HTN: controlled 3. HLP: new 4. DM2: new. per PCP 5. Obesity 6. Suspect CKD Recommendations 1. ASA. heparin drip 2. Statin. CABG pending for Sat 3. Dietitian consult 4. Insulin in place. 5. Exertional CP continues. Continue BB and will start on NTG CRISTINA Lawrence APRN Oct 19, 2018 13:01
[2018-10-19] MEDS: ANTI-COAG MONITOR BY PHARMACY. MC PRN (13:39)
[2018-10-19 15:00] VITALS: BP 122/63
[2018-10-19] MEDS ORDERED: MAGNESIUM HYDROXIDE 2,400 MG/30 ML ORAL.SUSP. PO PRN (17:00)
[2018-10-19] MEDS ORDERED: MAGNESIUM HYDROXIDE 2,400 MG/30 ML ORAL.SUSP. PO ONE (17:00)
[2018-10-19] MEDS: glyBURIDE 1.25 MG TABLET PO SCH (17:45)
[2018-10-19] MEDS: NITROGLYCERIN OINT 1 GM PACKET. TP SCH (17:45)
[2018-10-19] MEDS: POLYETHYLENE GLYCOL 3350 17 GM PACKET. PO SCH (17:45)
[2018-10-19] MEDS ORDERED: NITROGLYCERIN PREMIX 250 ML IV PRN (18:30)
[2018-10-19 19:49] VITALS: BP 148/88
[2018-10-19] MEDS: DOCUSATE SODIUM 100 MG CAPSULE. PO SCH (20:33)
[2018-10-19] MEDS: ATORVASTATIN CALCIUM 40 MG TABLET. PO SCH (21:07)
[2018-10-19] MEDS: ZOLPIDEM 5 MG TABLET. PO PRN (22:13)
[2018-10-19 23:05] VITALS: BP 113/64
[2018-10-20 03:00] VITALS: BP 125/74
[2018-10-20] MEDS: NITROGLYCERIN OINT 1 GM PACKET. TP SCH ×5 (06:00→22:55)
[2018-10-20 06:22] LABS: CALCIUM 8.8 mg/dL (8.5-10.1); CREATININE 1.2 mg/dL (0.7-1.3); GFR 61.6; MAGNESIUM 2.2 mg/dL (1.8-2.4); POTASSIUM 4.3 mmol/L (3.5-5.1)
[2018-10-20 07:00] VITALS: BP 147/85
[2018-10-20] MEDS: metFORMIN 500 MG TABLET PO SCH (08:00)
[2018-10-20] MEDS: ASPIRIN ENTERIC COATED 81 MG TABLET.DR. PO SCH (08:33)
[2018-10-20] MEDS: glyBURIDE 1.25 MG TABLET PO SCH ×2 (08:36→17:39)
[2018-10-20] MEDS: DOCUSATE SODIUM 100 MG CAPSULE. PO SCH ×4 (08:37→20:36)
[2018-10-20] MEDS: POLYETHYLENE GLYCOL 3350 17 GM PACKET. PO SCH ×3 (08:37→12:39)
[2018-10-20] MEDS: METOPROLOL TART IMMED RELEASE 25 MG TABLET. PO SCH ×2 (08:37→20:37)
[2018-10-20] MEDS: INSULIN LISPRO 300 UNITS/3 ML VIAL. SQ SCH ×3 (08:53→17:00)
[2018-10-20] MEDS ORDERED: glyBURIDE 1.25 MG TABLET PO SCH (09:00)
[2018-10-20] MEDS ORDERED: glyBURIDE 1.25 MG TABLET PO ONE (09:30)
[2018-10-20] MEDS: HEPARIN 25,000UTS/500ML PREMIX 500 ML IV PRN (10:47)
[2018-10-20 11:00] VITALS: BP 117/69
--- NOTE | 2018-10-20 11:03 | PDOC ---
PROGRESS NOTES Chief Complaint Chief Complaint 1. NSTEMI 2. HTN: labile, new 3. HLP: new 4. DM2: new. hgba1c 8.7 5. Obesity 6. Suspect CKD History of Present Illness History of Present Illness I d/w him his new DM dx and me starting glyburide and possibly metformin when he discharges And he understands CREat 1,4 on admit, so i held off starting metformin for now. NON alcoholic CREat 1,1 now, if cont to improve then metformin plus his glyburide would be good options for his DM regimen on dc IF BS remain elevated, maybe lantus 10 units qhs might be in order - i dw him, he understands, and is agreeable to shots PLAN: inc glyburide with meals PRe op work up ordered by [facility] prior to CABG tuesday Start lantus 10 units qhs if BS persistently > 250s Vitals Vitals Vital Signs Date Time Temp Pulse Resp B/P (MAP) Pulse Ox O2 Delivery O2 Flow Rate FiO2 10/20/18 08:54 79 147/85 10/20/18 08:00 Room Air 10/20/18 07:00 98.1 18 98 98.1 10/19/18 15:33 2.0 Physical Exam General: Alert, Oriented X3, Cooperative, No acute distress Heart: Regular rate (SR), Normal S1, Normal S2, No murmurs Lungs: Clear Abdomen: Normal bowel sounds, Soft, No tenderness, Other (obese) Extremities: No cyanosis, No edema Skin: No breakdown, No significant lesion Labs LABS Laboratory Tests Test 10/19/18 11:31 10/19/18 16:50 10/19/18 21:10 10/20/18 05:30 Glucose (Fingerstick) 232 mg/dL (70-99) 166 mg/dL (70-99) 156 mg/dL (70-99) Heparin Anti-Xa Act, Unfractionated 0.27 IU/mL (0.30-0.70) Sodium Level 140 mmol/L (136-145) Potassium Level 4.3 mmol/L (3.5-5.1) Chloride Level 105 mmol/L (98-107) Carbon Dioxide Level 25 mmol/L (21-32) Anion Gap 10 (6-14) Blood Urea Nitrogen 14 mg/dL (8-26) Creatinine 1.2 mg/dL (0.7-1.3) Estimated GFR (Cockcroft-Gault) 61.6 Glucose Level 207 mg/dL (70-99) Calcium Level 8.8 mg/dL (8.5-10.1) Magnesium Level 2.2 mg/dL (1.8-2.4) Test 10/20/18 08:20 Glucose (Fingerstick) 194 mg/dL (70-99) Review of Systems Review of Systems no cp, no soa, no abd pain, no ever, neg 14 pt reviewed with him Assessment and Plan Assessmemt and Plan Problems Medical Problems: (1) 3-vessel CAD Status: Chronic (2) ACS (acute coronary syndrome) Status: Acute (3) CKD (chronic kidney disease) Status: Chronic (4) Elevated troponin Status: Acute (5) HLD (hyperlipidemia) Status: Chronic (6) HTN (hypertension) Status: Chronic (7) Morbid obesity Status: Chronic (8) NSTEMI (non-ST elevated myocardial infarction) Status: Acute Comment Review of Relevant I have reviewed the following items rickie (where applicable) has been applied. Labs Laboratory Tests Test 10/18/18 12:20 10/18/18 17:15 10/18/18 22:45 10/19/18 04:25 Troponin I Quantitative 0.273 ng/mL (0.000-0.055) Prothrombin Time 12.7 SEC (11.7-14.0) Prothromb Time International Ratio 1.0 (0.8-1.1) Activated Partial Thromboplast Time 43 SEC (24-38) Heparin Anti-Xa Act, Unfractionated 0.34 IU/mL (0.30-0.70) 0.30 IU/mL (0.30-0.70) 0.31 IU/mL (0.30-0.70) White Blood Count 5.6 x10^3/uL (4.0-11.0) Red Blood Count 5.14 x10^6/uL (4.30-5.70) Hemoglobin 15.8 g/dL (13.0-17.5) Hematocrit 44.7 % (39.0-53.0) Mean Corpuscular Volume 87 fL (79-100) Mean Corpuscular Hemoglobin 31 pg (25-35) Mean Corpuscular Hemoglobin Concent 35 g/dL (31-37) Red Cell Distribution Width 13.0 % (11.5-14.5) Platelet Count 171 x10^3/uL (140-400) Sodium Level 142 mmol/L (136-145) Potassium Level 3.8 mmol/L (3.5-5.1) Chloride Level 106 mmol/L (98-107) Carbon Dioxide Level 28 mmol/L (21-32) Anion Gap 8 (6-14) Blood Urea Nitrogen 13 mg/dL (8-26) Creatinine 1.1 mg/dL (0.7-1.3) Estimated GFR (Cockcroft-Gault) 68.1 BUN/Creatinine Ratio 12 (6-20) Glucose Level 181 mg/dL (70-99) Calcium Level 8.6 mg/dL (8.5-10.1) Total Bilirubin 0.7 mg/dL (0.2-1.0) Aspartate Amino Transf (AST/SGOT) 21 U/L (15-37) Alanine Aminotransferase (ALT/SGPT) 21 U/L (16-63) Alkaline Phosphatase 69 U/L (46-116) Total Protein 6.4 g/dL (6.4-8.2) Albumin 3.4 g/dL (3.4-5.0) Albumin/Globulin Ratio 1.1 (1.0-1.7) Test 10/19/18 11:31 10/19/18 16:50 10/19/18 21:10 10/20/18 05:30 Glucose (Fingerstick) 232 mg/dL (70-99) 166 mg/dL (70-99) 156 mg/dL (70-99) Heparin Anti-Xa Act, Unfractionated 0.27 IU/mL (0.30-0.70) Sodium Level 140 mmol/L (136-145) Potassium Level 4.3 mmol/L (3.5-5.1) Chloride Level 105 mmol/L (98-107) Carbon Dioxide Level 25 mmol/L (21-32) Anion Gap 10 (6-14) Blood Urea Nitrogen 14 mg/dL (8-26) Creatinine 1.2 mg/dL (0.7-1.3) Estimated GFR (Cockcroft-Gault) 61.6 Glucose Level 207 mg/dL (70-99) Calcium Level 8.8 mg/dL (8.5-10.1) Magnesium Level 2.2 mg/dL (1.8-2.4) Test 10/20/18 08:20 Glucose (Fingerstick) 194 mg/dL (70-99) Laboratory Tests Test 10/19/18 11:31 10/19/18 16:50 10/19/18 21:10 10/20/18 05:30 Glucose (Fingerstick) 232 mg/dL (70-99) 166 mg/dL (70-99) 156 mg/dL (70-99) Heparin Anti-Xa Act, Unfractionated 0.27 IU/mL (0.30-0.70) Sodium Level 140 mmol/L (136-145) Potassium Level 4.3 mmol/L (3.5-5.1) Chloride Level 105 mmol/L (98-107) Carbon Dioxide Level 25 mmol/L (21-32) Anion Gap 10 (6-14) Blood Urea Nitrogen 14 mg/dL (8-26) Creatinine 1.2 mg/dL (0.7-1.3) Estimated GFR (Cockcroft-Gault) 61.6 Glucose Level 207 mg/dL (70-99) Calcium Level 8.8 mg/dL (8.5-10.1) Magnesium Level 2.2 mg/dL (1.8-2.4) Test 10/20/18 08:20 Glucose (Fingerstick) 194 mg/dL (70-99) Medications Current Medications Aspirin (Miri Aspirin) 325 mg 1X ONCE PO Last administered on 10/17/18at 19:02; Start 10/17/18 at 18:30; Stop 10/17/18 at 19:02; Status DC Enoxaparin Sodium (Lovenox 100mg Syringe) 90 mg 1X ONCE SQ Last administered on 10/17/18at 19:51; Start 10/17/18 at 19:15; Stop 10/17/18 at 19:23; Status DC Ondansetron HCl (Zofran) 4 mg PRN Q6HRS PRN IV NAUSEA/VOMITING; Start 10/17/18 at 20:45 Acetaminophen (Tylenol) 500 mg PRN Q6HRS PRN PO MILD PAIN / TEMP; Start 10/17/18 at 20:45 Acetaminophen/ Codeine Phosphate (Tylenol #3) 1 tab PRN Q6HRS PRN PO MODERATE PAIN Last administered on 10/18/18at 11:26; Start 10/17/18 at 20:45 Zolpidem Tartrate (Ambien) 5 mg PRN QHS PRN PO INSOMNIA Last administered on 10/18/18at 22:19; Start 10/17/18 at 20:45; Stop 10/19/18 at 08:30; Status DC Labetalol HCl (Normodyne Iv Push) 20 mg PRN Q2HR PRN IVP HYPERTENSION; Start 10/17/18 at 20:45 Sodium Chloride 1,000 ml @ 100 mls/hr 1X ONCE IV Last administered on 10/17/18at 23:32; Start 10/17/18 at 20:45; Stop 10/18/18 at 06:44; Status DC Iodixanol (Visipaque 320) 100 ml STK-MED ONCE .ROUTE ; Start 10/18/18 at 09:17; Stop 10/18/18 at 09:17; Status DC Lidocaine HCl (Lidocaine 1% 20ml Vial) 20 ml STK-MED ONCE .ROUTE ; Start 10/18/18 at 09:17; Stop 10/18/18 at 09:17; Status DC Heparin Sodium/ Sodium Chloride 1,000 ml @ As Directed STK-MED ONCE .ROUTE ; Start 10/18/18 at 09:17; Stop 10/18/18 at 09:17; Status DC Fentanyl Citrate (Fentanyl 2ml Vial) 100 mcg STK-MED ONCE .ROUTE ; Start 10/18/18 at 09:24; Stop 10/18/18 at 09:24; Status DC Midazolam HCl (Versed) 5 mg STK-MED ONCE .ROUTE ; Start 10/18/18 at 09:24; Stop 10/18/18 at 09:24; Status DC Heparin Sodium (Porcine) (Heparin Sodium) 10,000 unit STK-MED ONCE .ROUTE ; Start 10/18/18 at 09:26; Stop 10/18/18 at 09:26; Status DC Verapamil HCl (Verapamil) 5 mg STK-MED ONCE .ROUTE ; Start 10/18/18 at 09:26; Stop 10/18/18 at 09:26; Status DC Nitroglycerin (Nitroglycerin) 200 mcg STK-MED ONCE .ROUTE ; Start 10/18/18 at 09:26; Stop 10/18/18 at 09:26; Status DC Iodixanol (Visipaque 320) 100 ml STK-MED ONCE .ROUTE ; Start 10/18/18 at 09:53; Stop 10/18/18 at 09:53; Status DC Nitroglycerin (Nitroglycerin) 200 mcg 1X ONCE IART Last administered on 10/18/18at 10:50; Start 10/18/18 at 10:15; Stop 10/18/18 at 10:21; Status DC Verapamil HCl (Verapamil) 2.5 mg 1X ONCE IART Last administered on 10/18/18at 10:50; Start 10/18/18 at 10:15; Stop 10/18/18 at 10:21; Status DC Heparin Sodium (Porcine) (Heparin Sodium) 2,500 unit 1X ONCE IART Last administered on 10/18/18at 10:50; Start 10/18/18 at 10:15; Stop 10/18/18 at 10:21; Status DC Heparin Sodium/ Sodium Chloride (HEPARIN for ARTERIAL LINE FLUSH) 1,000 unit 1X ONCE IART Last administered on 10/18/18at 10:50; Start 10/18/18 at 10:15; Stop 10/18/18 at 10:21; Status DC Heparin Sodium/ Sodium Chloride (HEPARIN for ARTERIAL LINE FLUSH) 1,000 unit 1X ONCE IART Last administered on 10/18/18at 10:50; Start 10/18/18 at 10:15; Stop 10/18/18 at 10:21; Status DC Midazolam HCl (Versed) 5 mg 1X ONCE IV Last administered on 10/18/18at 10:50; Start 10/18/18 at 10:15; Stop 10/18/18 at 10:21; Status DC Fentanyl Citrate (Fentanyl 2ml Vial) 100 mcg 1X ONCE IV Last administered on 10/18/18at 10:50; Start 10/18/18 at 10:15; Stop 10/18/18 at 10:21; Status DC Lidocaine HCl (Lidocaine 1% 20ml Vial) 20 ml 1X ONCE INJ Last administered on 10/18/18at 10:50; Start 10/18/18 at 10:15; Stop 10/18/18 at 10:21; Status DC Iodixanol (Visipaque 320) 100 ml 1X ONCE IART Last administered on 10/18/18at 10:50; Start 10/18/18 at 10:15; Stop 10/18/18 at 10:21; Status DC Info (CONTRAST GIVEN -- Rx MONITORING) 1 each PRN DAILY PRN MC SEE COMMENTS; Start 10/18/18 at 10:30; Stop 10/20/18 at 10:29; Status DC Sodium Chloride (Normal Saline Flush) 3 ml QSHIFT PRN IV AFTER MEDS AND BLOOD DRAWS; Start 10/18/18 at 11:00 Sodium Chloride 1,000 ml @ 75 mls/hr [id number] IV Last administered on 10/18/18at 11:20; Start 10/18/18 at 11:30; Stop 10/18/18 at 11:31; Status DC Nitroglycerin (Nitrostat) 0.4 mg PRN Q5MIN PRN SL CHEST PAIN; Start 10/18/18 at 11:00 Metoprolol Tartrate (Lopressor) 12.5 mg BID PO Last administered on 10/18/18at 11:26; Start 10/18/18 at 11:00; Stop 10/18/18 at 15:10; Status DC Atorvastatin Calcium (Lipitor) 20 mg QHS PO ; Start 10/18/18 at 21:00; Stop 10/18/18 at 15:07; Status DC Heparin Sodium/ Dextrose 500 ml @ 0 mls/hr CONT PRN PRN IV SEE PROTOCOL Last administered on 10/20/18at 10:47; Start 10/18/18 at 11:00 Heparin Sodium (Porcine) (Heparin Sodium) 2,300 unit PRN Q6HRS PRN IV FOR UFH LEVEL LESS THAN 0.2; Start 10/18/18 at 11:00 Cefazolin Sodium/ Dextrose 50 ml @ 100 mls/hr 1X PREOP PRN IV PRIOR TO PROCEDURE; Start 10/19/18 at 06:00; Stop 10/19/18 at 14:00; Status DC Atorvastatin Calcium (Lipitor) 40 mg QHS PO Last administered on 10/19/18at 21:08; Start 10/18/18 at 21:00 Metoprolol Tartrate (Lopressor) 25 mg BID PO Last administered on 10/20/18at 08:54; Start 10/18/18 at 21:00 Aspirin (Ecotrin) 81 mg DAILYWBKFT PO Last administered on 10/20/18 08:54; Start 10/18/18 at 15:15 Acetaminophen/ Hydrocodone Bitart (Lortab 7.5/325) 1 tab PRN Q6HRS PRN PO PAIN SEVERE Last administered on 10/18/18 16:49; Start 10/18/18 at 16:15 Alprazolam (Xanax) 0.5 mg Q6HRS PRN PO ANXIETY / AGITATION; Start 10/18/18 at 19:15 Morphine Sulfate (Morphine Sulfate) 2 mg PRN Q2HR PRN IV PAIN Last administered on 10/19/18 15:33; Start 10/18/18 at 20:00 Zolpidem Tartrate (Ambien) 5 mg PRN QHS PRN PO INSOMNIA Last administered on 10/19/18 22:13; Start 10/19/18 at 08:30 Metformin HCl (Glucophage) 500 mg BIDWMEALS PO ; Start 10/19/18 at 17:00; Stop 10/20/18 at 08:55; Status DC Glyburide (Diabeta) 1.25 mg BIDWMEALS PO Last administered on 10/20/18 08:54; Start 10/19/18 at 17:00; Stop 10/20/18 at 08:55; Status DC Insulin Human Lispro (HumaLOG) 0-9 UNITS TIDWMEALS SQ Last administered on 10/20/18 08:54; Start 10/19/18 at 12:00 Dextrose (Dextrose 50%-Water Syringe) 12.5 gm PRN Q15MIN PRN IV SEE COMMENTS; Start 10/19/18 at 11:30 Dextrose 250 ml PRN Q15MIN PRN IV SEE COMMENTS; Start 10/19/18 at 11:30; Status UNV Nitroglycerin (Nitro-Bid Oint) 0.5 inch Q6HRS TP ; Start 10/19/18 at 18:00 Info (Anti-Coagulation Monitoring By Pharmacy) 1 each PRN DAILY PRN MC SEE COMMENTS Last administered on 10/19/18at 13:40; Start 10/19/18 at 13:45 Docusate Sodium (Colace) 100 mg BID PO Last administered on 10/20/18 09:33; Start 10/19/18 at 21:00 Polyethylene Glycol (miraLAX PACKET) 17 gm DAILY PO Last administered on 10/20/18at 09:33; Start 10/19/18 at 17:00 Magnesium Hydroxide (Milk Of Magnesia) 2,400 mg PRN DAILY PRN PO CONSTIPATION; Start 10/19/18 at 17:00 Magnesium Hydroxide (Milk Of Magnesia) 2,400 mg 1X ONCE PO Last administered on 10/19/18at 17:52; Start 10/19/18 at 17:00; Stop 10/19/18 at 17:02; Status DC Nitroglycerin/ Dextrose 250 ml @ 1.5 mls/hr CONT PRN IV SEE I/O RECORD Last administered on 10/19/18at 18:37; Start 10/19/18 at 18:30 Glyburide (Diabeta) 2.5 mg BIDWMEALS PO ; Start 10/20/18 at 09:00; Stop 10/20/18 at 09:10; Status DC Glyburide (Diabeta) 2.5 mg BIDWMEALS PO ; Start 10/20/18 at 17:00 Glyburide (Diabeta) 1.25 mg 1X ONCE PO Last administered on 10/20/18at 09:26; Start 10/20/18 at 09:30; Stop 10/20/18 at 09:31; Status DC Vitals/I & O Vital Sign - Last 24 Hours 10/19/18 10/19/18 10/19/18 10/19/18 11:07 15:00 15:33 16:44 Temp 98.2 98.2 Pulse 79 Resp 15 16 16 15 B/P (MAP) 122/63 (82) Pulse Ox 96 98 96 96 O2 Delivery Room Air Room Air Room Air Room Air O2 Flow Rate 2.0 2.0 10/19/18 10/19/18 10/19/18 10/19/18 19:49 20:00 21:08 23:05 Temp 98.5 98.5 98.5 98.5 Pulse 84 84 74 Resp 16 16 B/P (MAP) 148/88 (108) 148/88 113/64 (80) Pulse Ox 98 98 O2 Delivery Room Air Room Air Room Air 10/20/18 10/20/18 10/20/18 10/20/18 00:02 03:00 06:05 07:00 Temp 98.3 98.1 98.3 98.1 Pulse 74 70 70 79 Resp 18 B/P (MAP) 113/64 125/74 (91) 125/74 147/85 (105) Pulse Ox 96 98 O2 Delivery Room Air Room Air 10/20/18 10/20/18 08:00 08:54 Pulse 79 B/P (MAP) 147/85 O2 Delivery Room Air Intake and Output 10/19/18 10/19/18 10/20/18 14:59 22:59 06:59 Intake Total 715.3 ml Output Total 1400 ml 900 ml Balance -1400 ml -900 ml 715.3 ml LIZA WILLETT MD Oct 20, 2018 11:03
[2018-10-20] MEDS: ALPRAZolam 0.5 MG TABLET PO PRN ×2 (13:13→18:46)
[2018-10-20 15:00] VITALS: BP 151/82
--- NOTE | 2018-10-20 15:00 | PDOC ---
CARDIO Progress Notes Date and Time Date of Service 10/20/2018 Time of Evaluation 1440 Subjective Subjective: No Chest Pain, No shortness of breath, No Palpitations Vitals Vitals Vital Signs Date Time Temp Pulse Resp B/P (MAP) Pulse Ox O2 Delivery O2 Flow Rate FiO2 10/20/18 11:00 98.3 83 18 117/69 (85) 98 Room Air 98.3 10/19/18 15:33 2.0 Weight Weight [ ] Input and Output Intake and Output Intake and Output 10/20/18 06:59 Intake Total 715.3 ml Output Total 2300 ml Balance -1584.7 ml IV Total 715.3 ml Output Urine Total 2300 ml # Voids 3 # Bowel Movements 4 Laboratory Labs Laboratory Tests Test 10/19/18 16:50 10/19/18 21:10 10/20/18 05:30 10/20/18 08:20 Glucose (Fingerstick) 166 mg/dL (70-99) 156 mg/dL (70-99) 194 mg/dL (70-99) Heparin Anti-Xa Act, Unfractionated 0.27 IU/mL (0.30-0.70) Sodium Level 140 mmol/L (136-145) Potassium Level 4.3 mmol/L (3.5-5.1) Chloride Level 105 mmol/L (98-107) Carbon Dioxide Level 25 mmol/L (21-32) Anion Gap 10 (6-14) Blood Urea Nitrogen 14 mg/dL (8-26) Creatinine 1.2 mg/dL (0.7-1.3) Estimated GFR (Cockcroft-Gault) 61.6 Glucose Level 207 mg/dL (70-99) Calcium Level 8.8 mg/dL (8.5-10.1) Magnesium Level 2.2 mg/dL (1.8-2.4) Test 10/20/18 11:32 10/20/18 11:51 Heparin Anti-Xa Act, Unfractionated 0.26 IU/mL (0.30-0.70) Glucose (Fingerstick) 177 mg/dL (70-99) Physical Exam HEENT: Neck Supple W Full Motion Chest: Symmetric LUNGS: Clear to Auscultation Heart: S1S2, RRR (SR with PACs) Abdomen: Soft N/T, Other (obese) Extremities: No Calf Tenderness Neurology: alert, oriented, follow commands Assessment Assessment 1. NSTEMI: LHC revealed 3vd. EF and WM nml 2. HTN: controlled 3. HLP: new 4. DM2: new. per PCP 5. Obesity 6. Suspect CKD Recommendations 1. ASA. heparin drip.CP controlled with NTG drip 2. Statin, BB. CABG pending for Sat 3. Dietitian consult 4. Ins[address]. CRISTINA PEREZ APRN Oct 20, 2018 15:00
[2018-10-20] MEDS: ANTI-COAG MONITOR BY PHARMACY. MC PRN (15:10)
[2018-10-20] MEDS: MORPHINE SULFATE 2 MG/ML VIAL. IV PRN (18:46)
[2018-10-20 19:00] VITALS: BP 156/84
[2018-10-20] MEDS ORDERED: CALCIUM CARBONATE 500 MG TAB.CHEW PO PRN (20:15)
[2018-10-20] MEDS: ATORVASTATIN CALCIUM 40 MG TABLET. PO SCH (20:36)
[2018-10-20] MEDS: ZOLPIDEM 5 MG TABLET. PO PRN (22:42)
[2018-10-20 23:24] VITALS: BP 136/68
[2018-10-21] VITALS (15 sets, daily range): BP systolic 75–156; BP diastolic 37–79
[2018-10-21] MEDS: NITROGLYCERIN OINT 1 GM PACKET. TP SCH ×3 (05:42→18:00)
[2018-10-21] MEDS ORDERED: POTASSIUM CHLORIDE 15 MEQ, SODIUM BICARBONATE VIAL 12.5 MEQ in IV ELECTROLYTE-S (PH 7.4... IRR ONE (06:00)
[2018-10-21] MEDS ORDERED: POTASSIUM CHLORIDE 70 MEQ, SODIUM BICARBONATE VIAL 12.5 MEQ, LIDOCAINE 2% 24 ML in IV E... IRR ONE (06:00)
[2018-10-21] MEDS: HEPARIN 25,000UTS/500ML PREMIX 500 ML IV PRN (06:00)
[2018-10-21] MEDS ORDERED: HEPARIN 20,000 UNIT in IV RINGERS,LACTATED 1000ML 1,000 ML IRR ONE (06:00)
[2018-10-21] MEDS ORDERED: NITROGLYCERIN PREMIX 0 ML IV ONE (06:28)
[2018-10-21] MEDS ORDERED: ETOMIDATE 20 MG/10 ML VIAL. IV ONE (06:28)
[2018-10-21] MEDS ORDERED: AMINOCAPROIC ACID 5,000 MG/20 ML VIAL. IV ONE (06:28)
[2018-10-21] MEDS ORDERED: ROCURONIUM 100 MG/10 ML VIAL. ONE (06:28)
[2018-10-21] MEDS ORDERED: PHENYLEPHRINE in 0.9% NACL PF 1 MG/10 ML SYRINGE. IV ONE (06:28)
[2018-10-21] MEDS ORDERED: HEPARIN 30,000 UNIT/30 ML VIAL. ONE ×2 (06:29→12:08)
[2018-10-21] MEDS ORDERED: ONDANSETRON PF 4 MG/2 ML VIAL. IV PRN ×2 (06:30→13:15)
[2018-10-21] MEDS ORDERED: PROCHLORPERAZINE 10 MG/2 ML VIAL. IV PRN ×2 (06:30→13:15)
[2018-10-21] MEDS ORDERED: fentaNYL PF VIAL 100 MCG/2 ML VIAL IV PRN ×2 (06:30)
[2018-10-21] MEDS ORDERED: IV RINGERS,LACTATED 1000ML 1,000 ML IV SCH (06:30)
[2018-10-21] MEDS ORDERED: MORPHINE SULFATE 2 MG/ML VIAL. IV PRN (06:30)
[2018-10-21] MEDS ORDERED: HYDROmorphone 2 MG/ML VIAL IV PRN (06:30)
[2018-10-21] MEDS ORDERED: NITROGLYCERIN PREMIX 250 ML IV ONE (06:42)
[2018-10-21] MEDS ORDERED: SUFentanil 250 MCG/5 ML AMPUL. ONE (06:45)
[2018-10-21] MEDS ORDERED: MIDAZOLAM HCL/PF 2 MG/2 ML VIAL. ONE ×2 (06:45→10:12)
[2018-10-21] MEDS ORDERED: VANCOMYCIN 10GM VIAL for OR. ONE (06:58)
[2018-10-21] MEDS ORDERED: 0.9 % SODIUM CHLORIDE 20 ML VIAL. IJ ONE ×3 (06:59)
[2018-10-21] MEDS ORDERED: SURGICEL HEMOSTAT 4X8 EACH. ONE (06:59)
[2018-10-21] MEDS ORDERED: PAPAVERINE 60 MG/2 ML VIAL FOR OR ONLY. ONE (06:59)
[2018-10-21] MEDS: INSULIN LISPRO 300 UNITS/3 ML VIAL. SQ SCH ×3 (07:06→17:00)
[2018-10-21] MEDS ORDERED: INSULIN REGULAR VIAL 150 UNIT in 0.9 % SODIUM CHLORIDE 150ML 150 ML IV PRN ×2 (07:15→13:15)
[2018-10-21] MEDS ORDERED: ASPIRIN RECTAL 300 MG SUPP. PR ONE (07:30)
[2018-10-21] MEDS: glyBURIDE 1.25 MG TABLET PO SCH ×2 (08:00→17:00)
[2018-10-21] MEDS: POLYETHYLENE GLYCOL 3350 17 GM PACKET. PO SCH (09:00)
[2018-10-21] MEDS: DOCUSATE SODIUM 100 MG CAPSULE. PO SCH ×2 (09:00→20:58)
[2018-10-21] MEDS ORDERED: HEPARIN for IV BOLUS 10,000 UNIT/10 ML VIAL. ONE (09:06)
[2018-10-21] MEDS ORDERED: ROCURONIUM 50 MG/5 ML VIAL. ONE ×2 (09:39→12:47)
[2018-10-21] MEDS ORDERED: ceFAZolin SODIUM 1 GM VIAL ONE ×2 (09:40)
--- NOTE | 2018-10-21 10:00 | PDOC ---
PROGRESS NOTES Chief Complaint Chief Complaint 1. NSTEMI 2. HTN: labile, new 3. HLP: new 4. DM2: new. hgba1c 8.7 5. Obesity 6. Suspect CKD History of Present Illness History of Present Illness Out having CABG BS 222 nos - new DM hgba1c 8.7 Creat 1,4 on admit, but better now NON alcoholic PL:AN: LAbs post CABG Start lantus 15 qhs keep sulfonylurea MIght be able to start metformin on dc john if creat remains good post CABG Vitals Vitals Vital Signs Date Time Temp Pulse Resp B/P (MAP) Pulse Ox O2 Delivery O2 Flow Rate FiO2 10/21/18 03:05 68 20 116/50 (72) 97 Room Air 10/20/18 23:24 98.2 98.2 Physical Exam General: Alert, Oriented X3, Cooperative, No acute distress Heart: Regular rate (SR), Normal S1, Normal S2, No murmurs Lungs: Clear Abdomen: Normal bowel sounds, Soft, No tenderness, Other (obese) Extremities: No cyanosis, No edema Skin: No breakdown, No significant lesion Labs LABS Laboratory Tests Test 10/20/18 11:32 10/20/18 11:51 10/20/18 17:41 10/20/18 18:01 Heparin Anti-Xa Act, Unfractionated 0.26 IU/mL (0.30-0.70) 0.54 IU/mL (0.30-0.70) Glucose (Fingerstick) 177 mg/dL (70-99) 112 mg/dL (70-99) Test 10/20/18 22:40 10/21/18 00:15 10/21/18 06:53 Glucose (Fingerstick) 281 mg/dL (70-99) 222 mg/dL (70-99) Heparin Anti-Xa Act, Unfractionated 0.31 IU/mL (0.30-0.70) Review of Systems Review of Systems out having cabg Assessment and Plan Assessmemt and Plan Problems Medical Problems: (1) 3-vessel CAD Status: Chronic (2) ACS (acute coronary syndrome) Status: Acute (3) CKD (chronic kidney disease) Status: Chronic (4) Elevated troponin Status: Acute (5) HLD (hyperlipidemia) Status: Chronic (6) HTN (hypertension) Status: Chronic (7) Morbid obesity Status: Chronic (8) NSTEMI (non-ST elevated myocardial infarction) Status: Acute Comment Review of Relevant I have reviewed the following items rickie (where applicable) has been applied. Labs Laboratory Tests Test 10/19/18 11:31 10/19/18 16:50 10/19/18 21:10 10/20/18 05:30 Glucose (Fingerstick) 232 mg/dL (70-99) 166 mg/dL (70-99) 156 mg/dL (70-99) Heparin Anti-Xa Act, Unfractionated 0.27 IU/mL (0.30-0.70) Sodium Level 140 mmol/L (136-145) Potassium Level 4.3 mmol/L (3.5-5.1) Chloride Level 105 mmol/L (98-107) Carbon Dioxide Level 25 mmol/L (21-32) Anion Gap 10 (6-14) Blood Urea Nitrogen 14 mg/dL (8-26) Creatinine 1.2 mg/dL (0.7-1.3) Estimated GFR (Cockcroft-Gault) 61.6 Glucose Level 207 mg/dL (70-99) Calcium Level 8.8 mg/dL (8.5-10.1) Magnesium Level 2.2 mg/dL (1.8-2.4) Test 10/20/18 08:20 10/20/18 11:32 10/20/18 11:51 10/20/18 17:41 Glucose (Fingerstick) 194 mg/dL (70-99) 177 mg/dL (70-99) 112 mg/dL (70-99) Heparin Anti-Xa Act, Unfractionated 0.26 IU/mL (0.30-0.70) Test 10/20/18 18:01 10/20/18 22:40 10/21/18 00:15 10/21/18 06:53 Heparin Anti-Xa Act, Unfractionated 0.54 IU/mL (0.30-0.70) 0.31 IU/mL (0.30-0.70) Glucose (Fingerstick) 281 mg/dL (70-99) 222 mg/dL (70-99) Laboratory Tests Test 10/20/18 11:32 10/20/18 11:51 10/20/18 17:41 10/20/18 18:01 Heparin Anti-Xa Act, Unfractionated 0.26 IU/mL (0.30-0.70) 0.54 IU/mL (0.30-0.70) Glucose (Fingerstick) 177 mg/dL (70-99) 112 mg/dL (70-99) Test 10/20/18 22:40 10/21/18 00:15 10/21/18 06:53 Glucose (Fingerstick) 281 mg/dL (70-99) 222 mg/dL (70-99) Heparin Anti-Xa Act, Unfractionated 0.31 IU/mL (0.30-0.70) Medications Current Medications Aspirin (Miri Aspirin) 325 mg 1X ONCE PO Last administered on 10/17/18 19:02; Start 10/17/18 at 18:30; Stop 10/17/18 at 19:02; Status DC Enoxaparin Sodium (Lovenox 100mg Syringe) 90 mg 1X ONCE SQ Last administered on 10/17/18at 19:51; Start 10/17/18 at 19:15; Stop 10/17/18 at 19:23; Status DC Ondansetron HCl (Zofran) 4 mg PRN Q6HRS PRN IV NAUSEA/VOMITING; Start 10/17/18 at 20:45 Acetaminophen (Tylenol) 500 mg PRN Q6HRS PRN PO MILD PAIN / TEMP; Start 10/17/18 at 20:45 Acetaminophen/ Codeine Phosphate (Tylenol #3) 1 tab PRN Q6HRS PRN PO MODERATE PAIN Last administered on 10/18/18at 11:26; Start 10/17/18 at 20:45 Zolpidem Tartrate (Ambien) 5 mg PRN QHS PRN PO INSOMNIA Last administered on 10/18/18at 22:19; Start 10/17/18 at 20:45; Stop 10/19/18 at 08:30; Status DC Labetalol HCl (Normodyne Iv Push) 20 mg PRN Q2HR PRN IVP HYPERTENSION; Start 10/17/18 at 20:45 Sodium Chloride 1,000 ml @ 100 mls/hr 1X ONCE IV Last administered on 10/17/18at 23:32; Start 10/17/18 at 20:45; Stop 10/18/18 at 06:44; Status DC Iodixanol (Visipaque 320) 100 ml STK-MED ONCE .ROUTE ; Start 10/18/18 at 09:17; Stop 10/18/18 at 09:17; Status DC Lidocaine HCl (Lidocaine 1% 20ml Vial) 20 ml STK-MED ONCE .ROUTE ; Start 10/18/18 at 09:17; Stop 10/18/18 at 09:17; Status DC Heparin Sodium/ Sodium Chloride 1,000 ml @ As Directed STK-MED ONCE .ROUTE ; Start 10/18/18 at 09:17; Stop 10/18/18 at 09:17; Status DC Fentanyl Citrate (Fentanyl 2ml Vial) 100 mcg STK-MED ONCE .ROUTE ; Start 10/18/18 at 09:24; Stop 10/18/18 at 09:24; Status DC Midazolam HCl (Versed) 5 mg STK-MED ONCE .ROUTE ; Start 10/18/18 at 09:24; Stop 10/18/18 at 09:24; Status DC Heparin Sodium (Porcine) (Heparin Sodium) 10,000 unit STK-MED ONCE .ROUTE ; Start 10/18/18 at 09:26; Stop 10/18/18 at 09:26; Status DC Verapamil HCl (Verapamil) 5 mg STK-MED ONCE .ROUTE ; Start 10/18/18 at 09:26; Stop 10/18/18 at 09:26; Status DC Nitroglycerin (Nitroglycerin) 200 mcg STK-MED ONCE .ROUTE ; Start 10/18/18 at 09:26; Stop 10/18/18 at 09:26; Status DC Iodixanol (Visipaque 320) 100 ml STK-MED ONCE .ROUTE ; Start 10/18/18 at 09:53; Stop 10/18/18 at 09:53; Status DC Nitroglycerin (Nitroglycerin) 200 mcg 1X ONCE IART Last administered on 10/18/18at 10:50; Start 10/18/18 at 10:15; Stop 10/18/18 at 10:21; Status DC Verapamil HCl (Verapamil) 2.5 mg 1X ONCE IART Last administered on 10/18/18at 10:50; Start 10/18/18 at 10:15; Stop 10/18/18 at 10:21; Status DC Heparin Sodium (Porcine) (Heparin Sodium) 2,500 unit 1X ONCE IART Last administered on 10/18/18at 10:50; Start 10/18/18 at 10:15; Stop 10/18/18 at 10 :21; Status DC Heparin Sodium/ Sodium Chloride (HEPARIN for ARTERIAL LINE FLUSH) 1,000 unit 1X ONCE IART Last administered on 10/18/18at 10:50; Start 10/18/18 at 10:15; Stop 10/18/18 at 10:21; Status DC Heparin Sodium/ Sodium Chloride (HEPARIN for ARTERIAL LINE FLUSH) 1,000 unit 1X ONCE IART Last administered on 10/18/18at 10:50; Start 10/18/18 at 10:15; Stop 10/18/18 at 10:21; Status DC Midazolam HCl (Versed) 5 mg 1X ONCE IV Last administered on 10/18/18at 10:50; Start 10/18/18 at 10:15; Stop 10/18/18 at 10:21; Status DC Fentanyl Citrate (Fentanyl 2ml Vial) 100 mcg 1X ONCE IV Last administered on 10/18/18at 10:50; Start 10/18/18 at 10:15; Stop 10/18/18 at 10:21; Status DC Lidocaine HCl (Lidocaine 1% 20ml Vial) 20 ml 1X ONCE INJ Last administered on 10/18/18at 10:50; Start 10/18/18 at 10:15; Stop 10/18/18 at 10:21; Status DC Iodixanol (Visipaque 320) 100 ml 1X ONCE IART Last administered on 10/18/18at 10:50; Start 10/18/18 at 10:15; Stop 10/18/18 at 10:21; Status DC Info (CONTRAST GIVEN -- Rx MONITORING) 1 each PRN DAILY PRN MC SEE COMMENTS; Start 10/18/18 at 10:30; Stop 10/20/18 at 10:29; Status DC Sodium Chloride (Normal Saline Flush) 3 ml QSHIFT PRN IV AFTER MEDS AND BLOOD DRAWS; Start 10/18/18 at 11:00 Sodium Chloride 1,000 ml @ 75 mls/hr [id number] IV Last administered on 10/18/18at 11:20; Start 10/18/18 at 11:30; Stop 10/18/18 at 11:31; Status DC Nitroglycerin (Nitrostat) 0.4 mg PRN Q5MIN PRN SL CHEST PAIN; Start 10/18/18 at 11:00 Metoprolol Tartrate (Lopressor) 12.5 mg BID PO Last administered on 10/18/18at 11:26; Start 10/18/18 at 11:00; Stop 10/18/18 at 15:10; Status DC Atorvastatin Calcium (Lipitor) 20 mg QHS PO ; Start 10/18/18 at 21:00; Stop 10/18/18 at 15:07; Status DC Heparin Sodium/ Dextrose 500 ml @ 0 mls/hr CONT PRN PRN IV SEE PROTOCOL Last administered on 10/21/18at 06:00; Start 10/18/18 at 11:00 Heparin Sodium (Porcine) (Heparin Sodium) 2,300 unit PRN Q6HRS PRN IV FOR UFH LEVEL LESS THAN 0.2; Start 10/18/18 at 11:00 Cefazolin Sodium/ Dextrose 50 ml @ 100 mls/hr 1X PREOP PRN IV PRIOR TO PROCEDURE; Start 10/19/18 at 06:00; Stop 10/19/18 at 14:00; Status DC Atorvastatin Calcium (Lipitor) 40 mg QHS PO Last administered on 10/20/18 20:37; Start 10/18/18 at 21:00 Metoprolol Tartrate (Lopressor) 25 mg BID PO Last administered on 10/20/18 20:37; Start 10/18/18 at 21:00 Aspirin (Ecotrin) 81 mg DAILYWBKFT PO Last administered on 10/20/18at 08:54; Start 10/18/18 at 15:15 Acetaminophen/ Hydrocodone Bitart (Lortab 7.5/325) 1 tab PRN Q6HRS PRN PO PAIN SEVERE Last administered on 10/18/18 16:49; Start 10/18/18 at 16:15 Alprazolam (Xanax) 0.5 mg Q6HRS PRN PO ANXIETY / AGITATION Last administered on 10/20/18 18:46; Start 10/18/18 at 19:15 Morphine Sulfate (Morphine Sulfate) 2 mg PRN Q2HR PRN IV PAIN Last administered on 10/20/18at 18:46; Start 10/18/18 at 20:00 Zolpidem Tartrate (Ambien) 5 mg PRN QHS PRN PO INSOMNIA Last administered on 10/20/18at 22:55; Start 10/19/18 at 08:30 Metformin HCl (Glucophage) 500 mg BIDWMEALS PO ; Start 10/19/18 at 17:00; Stop 10/20/18 at 08:55; Status DC Glyburide (Diabeta) 1.25 mg BIDWMEALS PO Last administered on 10/20/18at 08:54; Start 10/19/18 at 17:00; Stop 10/20/18 at 08:55; Status DC Insulin Human Lispro (HumaLOG) 0-9 UNITS TIDWMEALS SQ Last administered on 10/21/18at 07:06; Start 10/19/18 at 12:00 Dextrose (Dextrose 50%-Water Syringe) 12.5 gm PRN Q15MIN PRN IV SEE COMMENTS; Start 10/19/18 at 11:30 Dextrose 250 ml PRN Q15MIN PRN IV SEE COMMENTS; Start 10/19/18 at 11:30; Status UNV Nitroglycerin (Nitro-Bid Oint) 0.5 inch Q6HRS TP ; Start 10/19/18 at 18:00 Info (Anti-Coagulation Monitoring By Pharmacy) 1 each PRN DAILY PRN MC SEE COMMENTS Last administered on 10/20/18at 15:10; Start 10/19/18 at 13:45 Docusate Sodium (Colace) 100 mg BID PO Last administered on 10/20/18at 20:37; Start 10/19/18 at 21:00 Polyethylene Glycol (miraLAX PACKET) 17 gm DAILY PO Last administered on 10/20/18at 12:42; Start 10/19/18 at 17:00 Magnesium Hydroxide (Milk Of Magnesia) 2,400 mg PRN DAILY PRN PO CONSTIPATION; Start 10/19/18 at 17:00 Magnesium Hydroxide (Milk Of Magnesia) 2,400 mg 1X ONCE PO Last administered on 10/19/18at 17:52; Start 10/19/18 at 17:00; Stop 10/19/18 at 17:02; Status DC Nitroglycerin/ Dextrose 250 ml @ 1.5 mls/hr CONT PRN IV SEE I/O RECORD Last administered on 10/19/18at 18:37; Start 10/19/18 at 18:30 Glyburide (Diabeta) 2.5 mg BIDWMEALS PO ; Start 10/20/18 at 09:00; Stop 10/20/18 at 09:10; Status DC Glyburide (Diabeta) 2.5 mg BIDWMEALS PO Last administered on 10/20/18at 17:42; Start 10/20/18 at 17:00 Glyburide (Diabeta) 1.25 mg 1X ONCE PO Last administered on 10/20/18at 09:26; Start 10/20/18 at 09:30; Stop 10/20/18 at 09:31; Status DC Heparin Sodium (Porcine) 04258 unit/Ringer's Solution 1,020 ml @ 1,020 mls/hr 1X PERIOP@0600 ONCE IRR ; Start 10/21/18 at 06:00; Stop 10/21/18 at 06:59; Status DC Potassium Chloride 70 meq/ Sodium Bicarbonate 12.5 meq/Lidocaine HCl 24 ml/Parenteral Electrolytes 571.5 ml @ 571.5 mls/ hr 1X PERIOP@0600 ONCE IRR ; Start 10/21/18 at 06:00; Stop 10/21/18 at 06:59; Status DC Potassium Chloride 15 meq/ Sodium Bicarbonate 12.5 meq/Parenteral Electrolytes 520 ml @ 520 mls/hr 1X PERIOP@0600 ONCE IRR ; Start 10/21/18 at 06:00; Stop 10/21/18 at 06:59; Status DC Cefazolin Sodium 1 gm/Sodium Chloride 500 ml @ 500 mls/hr 1X ONCE IRR ; Start 10/21/18 at 06:00; Stop 10/21/18 at 06:59; Status DC Calcium Carbonate/ Glycine (Tums) 500 mg PRN Q3HRS PRN PO INDIGESTION Last administered on 10/20/18at 20:37; Start 10/20/18 at 20:15 Phenylephrine HCl (PHENYLEPHRINE in 0.9% NACL PF) 1 mg STK-MED ONCE IV ; Start 10/21/18 at 06:28; Stop 10/21/18 at 06:28; Status DC Etomidate (Amidate) 20 mg STK-MED ONCE IV ; Start 10/21/18 at 06:28; Stop 10/21/18 at 06:28; Status DC Aminocaproic Acid (Amicar) 5,000 mg STK-MED ONCE IV ; Start 10/21/18 at 06:28; Stop 10/21/18 at 06:28; Status DC Nitroglycerin/ Dextrose 0 ml @ As Directed STK-MED ONCE IV ; Start 10/21/18 at 06:28; Stop 10/21/18 at 06:28; Status DC Rocuronium Vanleer (Zemuron) 100 mg STK-MED ONCE .ROUTE ; Start 10/21/18 at 06:28; Stop 10/21/18 at 06:28; Status DC Heparin Sodium (Porcine) 30,000 unit STK-MED ONCE .ROUTE ; Start 10/21/18 at 06:29; Stop 10/21/18 at 06:29; Status DC Ondansetron HCl (Zofran) 4 mg PRN Q6HRS PRN IV NAUSEA/VOMITING; Start 10/21/18 at 06:30; Stop 10/22/18 at 06:29 Fentanyl Citrate (Fentanyl 2ml Vial) 25 mcg PRN Q5MIN PRN IV MILD PAIN 1-3; Start 10/21/18 at 06:30; Stop 10/22/18 at 06:29 Fentanyl Citrate (Fentanyl 2ml Vial) 50 mcg PRN Q5MIN PRN IV MODERATE TO SEVERE PAIN; Start 10/21/18 at 06:30; Stop 10/22/18 at 06:29 Morphine Sulfate (Morphine Sulfate) 1 mg PRN Q10MIN PRN IV SEVERE PAIN 7-10; Start 10/21/18 at 06:30; Stop 10/22/18 at 06:29 Ringer's Solution 1,000 ml @ 30 mls/hr Q24H IV ; Start 10/21/18 at 06:30; Stop 10/21/18 at 18:29 Hydromorphone HCl (Dilaudid) 0.5 mg PRN Q10MIN PRN IV SEV PAIN, Second choice; Start 10/21/18 at 06:30; Stop 10/22/18 at 06:29 Prochlorperazine Edisylate (Compazine) 5 mg PACU PRN PRN IV NAUSEA, MRX1; Star t 10/21/18 at 06:30; Stop 10/22/18 at 06:29 Nitroglycerin/ Dextrose 250 ml @ As Directed STK-MED ONCE IV ; Start 10/21/18 at 06:42; Stop 10/21/18 at 06:43; Status DC Sufentanil Citrate (Sufenta) 250 mcg STK-MED ONCE .ROUTE ; Start 10/21/18 at 06:45; Stop 10/21/18 at 06:46; Status DC Midazolam HCl (Versed) 2 mg STK-MED ONCE .ROUTE ; Start 10/21/18 at 06:45; Stop 10/21/18 at 06:46; Status DC Vancomycin HCl (VANCO for OR ONLY) 10 gm STK-MED ONCE .ROUTE ; Start 10/21/18 at 06:58; Stop 10/21/18 at 06:59; Status DC Cellulose (Surgicel Hemostat 4x8) 1 each STK-MED ONCE .ROUTE ; Start 10/21/18 at 06:59; Stop 10/21/18 at 06:59; Status DC Papaverine HCl 60 mg STK-MED ONCE .ROUTE ; Start 10/21/18 at 06:59; Stop 10/21/18 at 06:59; Status DC Sodium Chloride (SODIUM CHLORIDE 20ml) 20 ml STK-MED ONCE IJ ; Start 10/21/18 at 06:59; Stop 10/21/18 at 06:59; Status DC Sodium Chloride (SODIUM CHLORIDE 20ml) 20 ml STK-MED ONCE IJ ; Start 10/21/18 at 06:59; Stop 10/21/18 at 07:00; Status DC Sodium Chloride (SODIUM CHLORIDE 20ml) 20 ml STK-MED ONCE IJ ; Start 10/21/18 at 06:59; Stop 10/21/18 at 07:00; Status DC Insulin Human Regular 150 unit/ Sodium Chloride 151.5 ml @ 9.292 mls/ hr CONT PRN IV SEE I/O RECORD; Start 10/21/18 at 07:15 Aspirin (Aspirin Rectal Supp) 300 mg 1X ONCE AR ; Start 10/21/18 at 07:30; Stop 10/21/18 at 07:31; Status DC Cefazolin Sodium/ Dextrose 50 ml @ 100 mls/hr 1X PREOP PRN IV PRIOR TO PROCEDURE; Start 10/22/18 at 06:00; Stop 10/22/18 at 18:00 Heparin Sodium (Porcine) (Heparin Sodium) 10,000 unit STK-MED ONCE .ROUTE ; Start 10/21/18 at 09:06; Stop 10/21/18 at 09:06; Status DC Rocuronium Vanleer (Zemuron) 50 mg STK-MED ONCE .ROUTE ; Start 10/21/18 at 09:39; Stop 10/21/18 at 09:39; Status DC Cefazolin Sodium (Ancef) 1 gm STK-MED ONCE .ROUTE ; Start 10/21/18 at 09:40; Stop 10/21/18 at 09:41; Status DC Cefazolin Sodium (Ancef) 1 gm STK-MED ONCE .ROUTE ; Start 10/21/18 at 09:40; Stop 10/21/18 at 09:41; Status DC Vitals/I & O Vital Sign - Last 24 Hours 10/20/18 10/20/18 10/20/18 10/20/18 11:00 15:00 18:46 19:00 Temp 98.3 98.3 97.8 98.3 98.3 97.8 Pulse 83 111 89 Resp 18 18 20 B/P (MAP) 117/69 (85) 151/82 (105) 156/84 (108) Pulse Ox 98 97 97 96 O2 Delivery Room Air Room Air Room Air Room Air 10/20/18 10/20/18 10/20/18 10/20/18 19:10 20:17 20:37 23:24 Temp 98.2 98.2 Pulse 89 76 Resp 20 B/P (MAP) 145/94 136/68 (90) Pulse Ox 97 98 O2 Delivery Room Air Room Air Room Air 10/21/18 03:05 Pulse 68 Resp 20 B/P (MAP) 116/50 (72) Pulse Ox 97 O2 Delivery Room Air Intake and Output 10/20/18 10/20/18 10/21/18 14:59 22:59 06:59 Intake Total 720 ml 290 ml 346.8 ml Output Total 750 ml 200 ml 950 ml Balance -30 ml 90 ml -603.2 ml LIZA WILLETT MD Oct 21, 2018 10:00
[2018-10-21] MEDS ORDERED: ALBUMIN HUMAN 5% 500 ML IV ONE (12:03)
[2018-10-21] MEDS ORDERED: LIDOCAINE 2% PF 5 ML VIAL. ONE (12:08)
[2018-10-21] MEDS ORDERED: MAGNESIUM SULFATE 5 GM/10 ML VIAL. ONE (12:08)
[2018-10-21] MEDS ORDERED: ALBUMIN HUMAN 25% 100 ML IV ONE (12:08)
[2018-10-21] MEDS ORDERED: CALCIUM CHLORIDE 1,000 MG/10 ML DISP.SYRIN ONE (12:08)
[2018-10-21] MEDS ORDERED: MANNITOL 25% 12.5 G/50 ML VIAL FOR OR. ONE (12:08)
[2018-10-21 12:51] LABS: HEMATOCRIT 35.6 % (39.0-53.0); HEMOGLOBIN 12.6 g/dL (13.0-17.5); WHITE BLOOD COUNT 5.3 x10^3/uL (4.0-11.0)
[2018-10-21] MEDS ORDERED: fentaNYL PF VIAL 100 MCG/2 ML VIAL ONE (13:00)
--- NOTE | 2018-10-21 13:09 | PDOC ---
BRIEF OPERATIVE NOTE Date: Oct 21, 2018 Pre-Op Diagnosis NSTEMI Coronary artery disease Diabetes Hypertension Post-Op Diagnosis NSTEMI Coronary artery disease Diabetes Hypertension Procedure Performed CABG x 2 (MCCLENDON to LAD, SVG to OM) Left endoscopic greater saphenous vein harvest Surgeon Alyse Nieves MD FACS Door Opener Wendy Cancino, V BLOCK SAW OPERATOR Lennie Ocasio V BLOCK SAW OPERATOR Anesthesiologist Dr Sampson Anesthesia Type: General Blood Loss Cellsaver IV Fluid Crystalloid: 2600 mls Colloid: 500 mls Cellsaver: 700 mls Urine Output 1425 mls Specimens Obtained None Findings Good 2mm LAD and OM targets The RPDA on the surface of the heart was puny <1mm and not a bypassable vessel Moderate size MCCLENDON with excellent flow Good size and quality saphenous vein conduit Complications None immediate Operative Note Additional remarks CPB time: 67 min x-clamp time: 49 min ALYSE NIEVES MD Oct 21, 2018 13:09
--- NOTE | 2018-10-21 13:11 | PDOC4 ---
Operative Note Operative Note Date Oct 21, 2018 Preoperative diagnosis NSTEMI Coronary artery disease Diabetes Hypertension Postoperative diagnosis NSTEMI Coronary artery disease Diabetes Hypertension Procedure performed CABG x 2 (MCCLENDON to LAD, SVG to OM) Left endoscopic greater saphenous vein harvest Surgeon Kasey Nieves MD FACS Hall Clerk Wendy Cancino, SPRING BENDERMartínez Ocasio [facility] Anesthesiologist Dr Sampson Anesthesia type General Blood loss Cellsaver IV fluids Crystalloid: 2600 mls Colloid: 500 mls Cellsaver: 700 mls Urine output 1425 mls Specimens obtained None Findings Good 2mm LAD and OM targets The RPDA on the surface of the heart was puny <1mm and not a bypassable vessel Moderate size MCCLENDON with excellent flow Good size and quality saphenous vein conduit Complications None immediate Additional remarks CPB time: 67 min x-clamp time: 49 min Indication The patient is a 63-year-old male with newly diagnosed diabetes and hypertension who was admitted to [facility] yesterday after presenting with a non-STEMI. The patient reports angina on minimal exertion for the past 2 months. Recently his chest pain occurs on minimal exertion and lasts longer. Upon admission he no EKG changes and a troponin of 0.59. His troponin is now downtrending. Coronary angiography today showed a tight and long proximal LAD stenosis, a tight proximal left circumflex lesion and a tight stenosis of the proximal RPDA. A CABG was indicated. Operation After appropriate identification, the patient was brought to the operating room and placed supine on the operating table. Anesthesia was induced and the airway was secured with an endotracheal tube. A right IJ [place]-Alejandrina catheter was placed. A left radial arterial line was also inserted. Antibiotics were delivered and the patient was preped and draped in the usual standard surgical sterile fashion. A timeout was then performed. A median sternotomy was performed and the left internal mammary artery was harvested, which was of moderate size, but with excellent flow. Simultaneously, the left greater saphenous vein was harvested, which was of good size and quality. The pericardium was incised. The patient was heparinized. Cardiopulmonary bypass was established through the ascending aorta and the right atrium. The patient was cooled to 34�. Arrest was achieved with induction antegrade cold blood cardioplegia. The cross-clamp was applied and diastolic arrest was achieved. Intermittent dosages of antegrade cardioplegia was given every 20 minutes. Grafts: Saphenous vein graft to obtuse marginal 1 coronary artery, end to side anastomosis with 7-0 Prolene, 2 mm vessel Left internal mammary artery to distal left anterior descending coronary artery, end to side anastomosis with 7-0 Prolene. 2 mm vessel A proximal anastomosis was performed using a 5-0 Prolene running suture. The cross-clamp was removed. The heart was allowed to rewarm and reperfuse. The grafts were de-aired. The patient resumed normal sinus rhythm and was from cardiopulmonary bypass without inotropic support. All cannulae were removed. Heparin was reversed with protamine. Atrial and ventricular pacing wires were placed. Hemostasis was confirmed. An angled 32 [place] chest tube was placed in the left pleural space, a 32Fr angled in the posterior pericardium and a 32 straight in the anterior pericardium. The sternotomy was closed with seven stainless steel wires. The incision was closed with a layer of 0 Vicryl, followed by 2-0 Vicryl and then 4-0 Monocryl for the epidermis. Sterile dressings were applied. The total cardiopulmonary bypass time was 67 minutes and the cross-clamp time was 49 minutes. The instrument, sponge and needle counts were correct. The patient was then transferred to the ICU in critical condition. KASEY NIEVES MD Oct 21, 2018 13:10
[2018-10-21 13:14] LABS: PROTHROMBIN TIME PATIENT 17.3 SEC (11.7-14.0)
[2018-10-21] MEDS ORDERED: ACETAMINOPHEN 650 MG SUPP.RECT. PR PRN (13:15)
[2018-10-21] MEDS ORDERED: AMIODARONE 150 MG in IV DEXTROSE 5% 100ML 100 ML IV PRN (13:15)
[2018-10-21] MEDS ORDERED: DEXTROSE 50% 25 GM / 50ML DISP.SYRIN. IV PRN (13:15)
[2018-10-21] MEDS ORDERED: NITROGLYCERIN PREMIX 250 ML IV PRN (13:15)
[2018-10-21] MEDS ORDERED: BISACODYL 10 MG SUPP.RECT. PR PRN (13:15)
[2018-10-21] MEDS ORDERED: MEPERIDINE PF 25 MG/ML VIAL. IV PRN (13:15)
[2018-10-21] MEDS ORDERED: AMIODARONE 900 MG in IV DEXTROSE 5% 500 ML IV PRN (13:15)
[2018-10-21] MEDS ORDERED: 0.9 % SODIUM CHLORIDE 10 ML DISP.SYRIN. IV PRN (13:15)
[2018-10-21] MEDS ORDERED: MAGNESIUM SULFATE 1GM 100 ML IV PRN (13:15)
[2018-10-21] MEDS ORDERED: PHENYLEPHRINE INJ 20 MG in IV NORMAL SALINE 250ML 250 ML IV PRN (13:15)
[2018-10-21] MEDS ORDERED: METOCLOPRAMIDE HCL 10 MG/2 ML VIAL. IV PRN (13:15)
[2018-10-21] MEDS ORDERED: AMIODARONE 150 MG in IV DEXTROSE 5% 100ML 100 ML IV ONE (13:15)
[2018-10-21] MEDS ORDERED: ALBUTEROL SULFATE 2.5 MG/3 ML NEBU. NEB PRN (13:15)
[2018-10-21] MEDS ORDERED: KCL PER PROTOCOL MC PRN (13:15)
[2018-10-21] MEDS ORDERED: IV DEXTROSE 5% 250 ML BAG. IV PRN (13:15)
[2018-10-21 13:42] LABS: ART BE ISTAT 2 mmol/L (0-3); ART GLUC ISTAT 183 mg/dL (70-99); ART HCO3 ISTAT 28 mmol/L (21-28); ART HCT ISTAT 40 % (37-52); ART HGB ISTAT 13.6 g/dL (14-18); ART ION CA ISTAT 1.26 mmol/L (1.13-1.32); ART K ISTAT 4.1 mmol/L (3.5-5.0); ART NA ISTAT 139 mmol/L (135-145); ART PCO2 ISTAT 47 mmHg (35-45); ART PH ISTAT 7.38 (7.35-7.45); ART PO2 ISTAT 426 mmHg (75-100); ART SAT O2 SAT 100 % (95-99); ART TCO2 ISTAT 29 mmol/L (21-32)
--- NOTE | 2018-10-21 13:52 | EKG ---
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
[2018-10-21 14:11] LABS: BASE EXCESS COOX -7 mmol/L (-3-3); HCO3 COOX 20 mmol/L (21-28); METHEMOGLOBIN 0.5 % (0.0-1.9); OXYHEMOGLOBIN 95.2 %; PCO2 COOX 46 mmHg (35-46); PO2 COOX 95 mmHg (65-108); SAT O2 COOX 96 % (92-99)
[2018-10-21 14:14] LABS: HEMATOCRIT 37.8 % (39.0-53.0); HEMOGLOBIN 13.4 g/dL (13.0-17.5); RED BLOOD COUNT 4.3 x10^6/uL (4.30-5.70); RED CELL DISTRIBUTION WIDTH 12.9 % (11.5-14.5)
[2018-10-21 14:18] LABS: CREATININE 1.2 mg/dL (0.7-1.3); GFR 61.6
[2018-10-21 14:19] LABS: MAGNESIUM 2.2 mg/dL (1.8-2.4)
[2018-10-21 14:24] LABS: PROTHROMBIN TIME PATIENT 16.2 SEC (11.7-14.0)
[2018-10-21] MEDS ORDERED: SODIUM BICARB ADULT 8.4% 50 MEQ/50 ML DISP.SYRIN. IV ONE (15:00)
[2018-10-21] MEDS: IV RINGERS,LACTATED 1000ML 1,000 ML IV SCH (15:55)
[2018-10-21] MEDS: ALBUMIN HUMAN 5% 250 ML IV PRN ×3 (15:58→18:29)
[2018-10-21] MEDS: ACETAMINOPHEN 325 MG TABLET. PO PRN (16:28)
[2018-10-21 16:59] LABS: BASE EXCESS ABG -1 mmol/L (-3-3); HCO3 ABG 25 mmol/L (21-28); PCO2 ABG 42 mmHg (35-46); PO2 ABG 99 mmHg (65-108); SAT O2 ABG 97 % (92-99)
[2018-10-21 17:01] LABS: CORRECTED PCO2 ABG 45 mmHg; CORRECTED PH ABG 7.36; CORRECTED PO2 ABG 107 mmHg
[2018-10-21] MEDS: MORPHINE SULFATE 4 MG/ML VIAL. IV PRN ×2 (17:14→21:00)
[2018-10-21 17:45] LABS: HEMATOCRIT 35.2 % (39.0-53.0); HEMOGLOBIN 12.5 g/dL (13.0-17.5); RED BLOOD COUNT 4.01 x10^6/uL (4.30-5.70); RED CELL DISTRIBUTION WIDTH 13.4 % (11.5-14.5); WHITE BLOOD COUNT 12.2 x10^3/uL (4.0-11.0)
[2018-10-21 17:57] LABS: ALBUMIN 3.6 g/dL (3.4-5.0); ALBUMIN/GLOBULIN RATIO 2.4 (1.0-1.7); CALCIUM 8.8 mg/dL (8.5-10.1); CREATININE 1.3 mg/dL (0.7-1.3); GFR 56.1; MAGNESIUM 1.9 mg/dL (1.8-2.4); POTASSIUM 4.5 mmol/L (3.5-5.1); TOTAL PROTEIN 5.1 g/dL (6.4-8.2)
[2018-10-21] MEDS ORDERED: POTASSIUM CHL 20MEQ PREMIX 50 ML IV ONE (18:00)
[2018-10-21] MEDS: oxyCODONE IR 5 MG TABLET PO PRN ×2 (19:11→23:08)
[2018-10-21] MEDS: FAMOTIDINE 20 MG/2 ML VIAL IVP SCH (20:58)
[2018-10-21] MEDS: ZOLPIDEM 5 MG TABLET. PO PRN (20:58)
[2018-10-21] MEDS: ATORVASTATIN CALCIUM 40 MG TABLET. PO SCH (20:58)
[2018-10-21] MEDS: SENNOSIDES/DOCUSATE 8.6/50MG TABLET. PO SCH (20:58)
[2018-10-21] MEDS: INSULIN GLARGINE SYRINGE. SQ SCH (21:11)
--- NOTE | 2018-10-21 22:00 | NUR ---
Dr Montes phoned unit, requesting update. update given included but not limited to vitals, pain management, urine output, chest tube output and arterial line being positional. new orders received and noted. will pass on in report, will continue to closely monitor.
[2018-10-22] VITALS (24 sets, daily range): BP systolic 90–153; BP diastolic 49–99
[2018-10-22] MEDS: MORPHINE SULFATE 4 MG/ML VIAL. IV PRN ×3 (00:36→09:29)
[2018-10-22] MEDS: oxyCODONE IR 5 MG TABLET PO PRN ×4 (03:18→20:02)
[2018-10-22] MEDS: NITROGLYCERIN OINT 1 GM PACKET. TP SCH ×4 (06:00→17:58)
--- NOTE | 2018-10-22 06:00 | NUR ---
arterial line from right radial artery removed at this time d/t being positional and consistently dampened waveform; BP via cuff correlates with arterial line pressures. pt educated on line removal, voices understanding. pressure held after removal x5 min, dressing applied. will pass on in report, will continue to closely monitor.
[2018-10-22 06:07] LABS: CALCIUM 8.8 mg/dL (8.5-10.1); CREATININE 1.4 mg/dL (0.7-1.3); GFR 51.5; POTASSIUM 4.8 mmol/L (3.5-5.1)
--- NOTE | 2018-10-22 06:09 | EKG ---
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
[2018-10-22 06:21] LABS: HEMATOCRIT 33.2 % (39.0-53.0); HEMOGLOBIN 11.7 g/dL (13.0-17.5); RED BLOOD COUNT 3.76 x10^6/uL (4.30-5.70); RED CELL DISTRIBUTION WIDTH 13.2 % (11.5-14.5); WHITE BLOOD COUNT 11.4 x10^3/uL (4.0-11.0)
--- NOTE | 2018-10-22 06:32 | RAD ---
AP chest. HISTORY: Post bypass AP view was taken of the chest. Patient had bypass surgery. The endotracheal tube is in the left mainstem bronchus. The patient's been extubated. [place]-Alejandrina catheter is in the right pulmonary artery. Left chest tube and mediastinal drain tubes are noted. NG tube is in the stomach. There is not evidence of heart failure. There are no confluent infiltrates. IMPRESSION: 1. Endotracheal tube is in the left mainstem bronchus, the patient's been extubated in the interval since the film. 2. Other tubes and lines in normal position. 3. No acute infiltrates. 4. Postop changes from bypass. Electronically signed by: Junito Styles MD (10/22/2018 6:30 AM) [facility]
[2018-10-22] MEDS ORDERED: ASPIRIN RECTAL 300 MG SUPP. PR PRN (08:00)
[2018-10-22] MEDS: ASPIRIN ENTERIC COATED 325 MG TABLET.DR. PO SCH (08:09)
[2018-10-22] MEDS: DOCUSATE SODIUM 100 MG CAPSULE. PO SCH ×2 (08:09→21:17)
[2018-10-22] MEDS: FAMOTIDINE 20 MG/2 ML VIAL IVP SCH ×2 (08:10→21:17)
[2018-10-22] MEDS: POLYETHYLENE GLYCOL 3350 17 GM PACKET. PO SCH (08:10)
[2018-10-22] MEDS: SENNOSIDES/DOCUSATE 8.6/50MG TABLET. PO SCH ×2 (08:10→21:16)
[2018-10-22] MEDS: CHLORHEXIDINE 0.12% 15 ML MOUTHWASH. MM SCH ×2 (09:00→21:00)
[2018-10-22] MEDS: METOPROLOL TART IMMED RELEASE 25 MG TABLET. PO SCH ×2 (09:00→21:17)
[2018-10-22] MEDS: glyBURIDE 1.25 MG TABLET PO SCH ×2 (09:29→17:45)
--- NOTE | 2018-10-22 09:31 | PDOC ---
PROGRESS NOTES Chief Complaint Chief Complaint 1. s/.p CABG 10/21 1. NSTEMI 2. HTN: labile, new 3. HLP: new 4. DM2: new. [id number] 8.7 5. Obesity 6. Suspect CKD History of Present Illness History of Present Illness s/p cabg POD # 1 Seen in ICU ambulating well with PT dragging all his gtts and tubes POst op labs look great VS ok no overnight arrhythmias Extubated yesterday post CABG CReat 1,4 PLAN: CPM, so far doing good day POD 1 CABG LAbs tmr Vitals Vitals Vital Signs Date Time Temp Pulse Resp B/P (MAP) Pulse Ox O2 Delivery O2 Flow Rate FiO2 10/22/18 08:08 18 99 Nasal Cannula 10/22/18 06:00 98.2 71 125/66 (85) 2.0 98.2 Physical Exam General: Alert, Oriented X3, Cooperative, No acute distress Heart: Regular rate (SR), Normal S1, Normal S2, No murmurs Lungs: Clear Abdomen: Normal bowel sounds, Soft, No tenderness, Other (obese) Extremities: No cyanosis, No edema Skin: No breakdown, No significant lesion Labs LABS Laboratory Tests Test 10/21/18 09:49 10/21/18 10:56 10/21/18 11:33 10/21/18 12:10 Activated Clotting Time 779 sec (92-181) 687 sec (92-181) 574 sec (92-181) 106 sec (92-181) Test 10/21/18 12:45 10/21/18 13:12 10/21/18 14:00 10/21/18 14:08 White Blood Count 5.3 x10^3/uL (4.0-11.0) 5.0 x10^3/uL (4.0-11.0) Hemoglobin 12.6 g/dL (13.0-17.5) 13.4 g/dL (13.0-17.5) Hematocrit 35.6 % (39.0-53.0) 37.8 % (39.0-53.0) Platelet Count 86 x10^3/uL (140-400) 118 x10^3/uL (140-400) Prothrombin Time 17.3 SEC (11.7-14.0) 16.2 SEC (11.7-14.0) Prothromb Time International Ratio 1.4 (0.8-1.1) 1.3 (0.8-1.1) Activated Partial Thromboplast Time 26 SEC (24-38) 25 SEC (24-38) Fibrinogen 176 mg/dL (200-440) O2 Saturation 96 % (92-99) Arterial Blood pH 7.26 (7.35-7.45) Arterial Blood pCO2 at Patient Temp 46 mmHg (35-46) Arterial Blood pO2 at Patient Temp 95 mmHg (65-108) Arterial Blood HCO3 20 mmol/L (21-28) Arterial Blood Base Excess -7 mmol/L (-3-3) Oxyhemoglobin 95.2 % Methemoglobin 0.5 % (0.0-1.9) Carbon Monoxide, Quantitative 0.5 % (0.0-1.9) FiO2 80% Glucose (Fingerstick) 124 mg/dL (70-99) Red Blood Count 4.30 x10^6/uL (4.30-5.70) Mean Corpuscular Volume 88 fL (79-100) Mean Corpuscular Hemoglobin 31 pg (25-35) Mean Corpuscular Hemoglobin Concent 36 g/dL (31-37) Red Cell Distribution Width 12.9 % (11.5-14.5) Sodium Level 145 mmol/L (136-145) Potassium Level 4.0 mmol/L (3.5-5.1) Chloride Level 111 mmol/L (98-107) Carbon Dioxide Level 24 mmol/L (21-32) Anion Gap 10 (6-14) Blood Urea Nitrogen 11 mg/dL (8-26) Creatinine 1.2 mg/dL (0.7-1.3) Estimated GFR (Cockcroft-Gault) 61.6 Glucose Level 131 mg/dL (70-99) Calcium Level 9.0 mg/dL (8.5-10.1) Magnesium Level 2.2 mg/dL (1.8-2.4) Test 10/21/18 16:39 10/21/18 17:35 10/21/18 17:36 10/21/18 21:05 O2 Saturation 97 % (92-99) Arterial Blood pH 7.38 (7.35-7.45) Arterial Blood pH (Temp corrected) 7.36 Arterial Blood pCO2 at Patient Temp 42 mmHg (35-46) Arterial Blood pCO2 (Temp correct) 45 mmHg Arterial Blood pO2 at Patient Temp 99 mmHg (65-108) Arterial Blood pO2 (Temp corrected) 107 mmHg Arterial Blood HCO3 25 mmol/L (21-28) Arterial Blood Base Excess -1 mmol/L (-3-3) White Blood Count 12.2 x10^3/uL (4.0-11.0) Red Blood Count 4.01 x10^6/uL (4.30-5.70) Hemoglobin 12.5 g/dL (13.0-17.5) Hematocrit 35.2 % (39.0-53.0) Mean Corpuscular Volume 88 fL (79-100) Mean Corpuscular Hemoglobin 31 pg (25-35) Mean Corpuscular Hemoglobin Concent 36 g/dL (31-37) Red Cell Distribution Width 13.4 % (11.5-14.5) Platelet Count 149 x10^3/uL (140-400) Sodium Level 144 mmol/L (136-145) Potassium Level 4.5 mmol/L (3.5-5.1) Chloride Level 110 mmol/L (98-107) Carbon Dioxide Level 24 mmol/L (21-32) Anion Gap 10 (6-14) Blood Urea Nitrogen 13 mg/dL (8-26) Creatinine 1.3 mg/dL (0.7-1.3) Estimated GFR (Cockcroft-Gault) 56.1 BUN/Creatinine Ratio 10 (6-20) Glucose Level 274 mg/dL (70-99) Calcium Level 8.8 mg/dL (8.5-10.1) Magnesium Level 1.9 mg/dL (1.8-2.4) Total Bilirubin 1.0 mg/dL (0.2-1.0) Aspartate Amino Transf (AST/SGOT) 57 U/L (15-37) Alanine Aminotransferase (ALT/SGPT) 28 U/L (16-63) Alkaline Phosphatase 47 U/L (46-116) Total Protein 5.1 g/dL (6.4-8.2) Albumin 3.6 g/dL (3.4-5.0) Albumin/Globulin Ratio 2.4 (1.0-1.7) Glucose (Fingerstick) 225 mg/dL (70-99) 291 mg/dL (70-99) Test 10/22/18 02:05 10/22/18 05:45 Glucose (Fingerstick) 285 mg/dL (70-99) White Blood Count 11.4 x10^3/uL (4.0-11.0) Red Blood Count 3.76 x10^6/uL (4.30-5.70) Hemoglobin 11.7 g/dL (13.0-17.5) Hematocrit 33.2 % (39.0-53.0) Mean Corpuscular Volume 88 fL (79-100) Mean Corpuscular Hemoglobin 31 pg (25-35) Mean Corpuscular Hemoglobin Concent 35 g/dL (31-37) Red Cell Distribution Width 13.2 % (11.5-14.5) Platelet Count 134 x10^3/uL (140-400) Sodium Level 139 mmol/L (136-145) Potassium Level 4.8 mmol/L (3.5-5.1) Chloride Level 105 mmol/L (98-107) Carbon Dioxide Level 23 mmol/L (21-32) Anion Gap 11 (6-14) Blood Urea Nitrogen 13 mg/dL (8-26) Creatinine 1.4 mg/dL (0.7-1.3) Estimated GFR (Cockcroft-Gault) 51.5 Glucose Level 217 mg/dL (70-99) Calcium Level 8.8 mg/dL (8.5-10.1) Magnesium Level 2.0 mg/dL (1.8-2.4) Review of Systems Review of Systems post op soreness, rest of 14 pt neg Assessment and Plan Assessmemt and Plan Problems Medical Problems: (1) 3-vessel CAD Status: Chronic (2) ACS (acute coronary syndrome) Status: Acute (3) CKD (chronic kidney disease) Status: Chronic (4) Elevated troponin Status: Acute (5) HLD (hyperlipidemia) Status: Chronic (6) HTN (hypertension) Status: Chronic (7) Morbid obesity Status: Chronic (8) NSTEMI (non-ST elevated myocardial infarction) Status: Acute Comment Review of Relevant I have reviewed the following items rickie (where applicable) has been applied. Labs Laboratory Tests Test 10/20/18 11:32 10/20/18 11:51 10/20/18 17:41 10/20/18 18:01 Heparin Anti-Xa Act, Unfractionated 0.26 IU/mL (0.30-0.70) 0.54 IU/mL (0.30-0.70) Glucose (Fingerstick) 177 mg/dL (70-99) 112 mg/dL (70-99) Test 10/20/18 22:40 10/21/18 00:15 10/21/18 06:53 10/21/18 08:24 Glucose (Fingerstick) 281 mg/dL (70-99) 222 mg/dL (70-99) Heparin Anti-Xa Act, Unfractionated 0.31 IU/mL (0.30-0.70) Bedside Hemoglobin (Calculated) 13.6 g/dL (14-18) Bedside Hematocrit 40 % (37-52) Bedside Arterial pH 7.38 (7.35-7.45) Bedside Arterial pCO2 47 mmHg (35-45) Bedside Arterial pO2 426 mmHg (75-100) Bedside Arterial HCO3 28 mmol/L (21-28) Bedside Arterial Total CO2 29 mmol/L (21-32) Arterial Bld O2 Saturation (Measur) 100 % (95-99) Bedside Arterial Blood Base Excess 2 mmol/L (0-3) Bedside FiO2 100.0 Bedside Sodium 139 mmol/L (135-145) Bedside Potassium 4.1 mmol/L (3.5-5.0) Glucose Level 183 mg/dL (70-99) Bedside Ionized Calcium (Angela) 1.26 mmol/L (1.13-1.32) Test 10/21/18 09:49 10/21/18 10:56 10/21/18 11:33 10/21/18 12:10 Activated Clotting Time 779 sec (92-181) 687 sec (92-181) 574 sec (92-181) 106 sec (92-181) Test 10/21/18 12:45 10/21/18 13:12 10/21/18 14:00 10/21/18 14:08 White Blood Count 5.3 x10^3/uL (4.0-11.0) 5.0 x10^3/uL (4.0-11.0) Hemoglobin 12.6 g/dL (13.0-17.5) 13.4 g/dL (13.0-17.5) Hematocrit 35.6 % (39.0-53.0) 37.8 % (39.0-53.0) Platelet Count 86 x10^3/uL (140-400) 118 x10^3/uL (140-400) Prothrombin Time 17.3 SEC (11.7-14.0) 16.2 SEC (11.7-14.0) Prothromb Time International Ratio 1.4 (0.8-1.1) 1.3 (0.8-1.1) Activated Partial Thromboplast Time 26 SEC (24-38) 25 SEC (24-38) Fibrinogen 176 mg/dL (200-440) O2 Saturation 96 % (92-99) Arterial Blood pH 7.26 (7.35-7.45) Arterial Blood pCO2 at Patient Temp 46 mmHg (35-46) Arterial Blood pO2 at Patient Temp 95 mmHg (65-108) Arterial Blood HCO3 20 mmol/L (21-28) Arterial Blood Base Excess -7 mmol/L (-3-3) Oxyhemoglobin 95.2 % Methemoglobin 0.5 % (0.0-1.9) Carbon Monoxide, Quantitative 0.5 % (0.0-1.9) FiO2 80% Glucose (Fingerstick) 124 mg/dL (70-99) Red Blood Count 4.30 x10^6/uL (4.30-5.70) Mean Corpuscular Volume 88 fL (79-100) Mean Corpuscular Hemoglobin 31 pg (25-35) Mean Corpuscular Hemoglobin Concent 36 g/dL (31-37) Red Cell Distribution Width 12.9 % (11.5-14.5) Sodium Level 145 mmol/L (136-145) Potassium Level 4.0 mmol/L (3.5-5.1) Chloride Level 111 mmol/L (98-107) Carbon Dioxide Level 24 mmol/L (21-32) Anion Gap 10 (6-14) Blood Urea Nitrogen 11 mg/dL (8-26) Creatinine 1.2 mg/dL (0.7-1.3) Estimated GFR (Cockcroft-Gault) 61.6 Glucose Level 131 mg/dL (70-99) Calcium Level 9.0 mg/dL (8.5-10.1) Magnesium Level 2.2 mg/dL (1.8-2.4) Test 10/21/18 16:39 10/21/18 17:35 10/21/18 17:36 10/21/18 21:05 O2 Saturation 97 % (92-99) Arterial Blood pH 7.38 (7.35-7.45) Arterial Blood pH (Temp corrected) 7.36 Arterial Blood pCO2 at Patient Temp 42 mmHg (35-46) Arterial Blood pCO2 (Temp correct) 45 mmHg Arterial Blood pO2 at Patient Temp 99 mmHg (65-108) Arterial Blood pO2 (Temp corrected) 107 mmHg Arterial Blood HCO3 25 mmol/L (21-28) Arterial Blood Base Excess -1 mmol/L (-3-3) White Blood Count 12.2 x10^3/uL (4.0-11.0) Red Blood Count 4.01 x10^6/uL (4.30-5.70) Hemoglobin 12.5 g/dL (13.0-17.5) Hematocrit 35.2 % (39.0-53.0) Mean Corpuscular Volume 88 fL (79-100) Mean Corpuscular Hemoglobin 31 pg (25-35) Mean Corpuscular Hemoglobin Concent 36 g/dL (31-37) Red Cell Distribution Width 13.4 % (11.5-14.5) Platelet Count 149 x10^3/uL (140-400) Sodium Level 144 mmol/L (136-145) Potassium Level 4.5 mmol/L (3.5-5.1) Chloride Level 110 mmol/L (98-107) Carbon Dioxide Level 24 mmol/L (21-32) Anion Gap 10 (6-14) Blood Urea Nitrogen 13 mg/dL (8-26) Creatinine 1.3 mg/dL (0.7-1.3) Estimated GFR (Cockcroft-Gault) 56.1 BUN/Creatinine Ratio 10 (6-20) Glucose Level 274 mg/dL (70-99) Calcium Level 8.8 mg/dL (8.5-10.1) Magnesium Level 1.9 mg/dL (1.8-2.4) Total Bilirubin 1.0 mg/dL (0.2-1.0) Aspartate Amino Transf (AST/SGOT) 57 U/L (15-37) Alanine Aminotransferase (ALT/SGPT) 28 U/L (16-63) Alkaline Phosphatase 47 U/L (46-116) Total Protein 5.1 g/dL (6.4-8.2) Albumin 3.6 g/dL (3.4-5.0) Albumin/Globulin Ratio 2.4 (1.0-1.7) Glucose (Fingerstick) 225 mg/dL (70-99) 291 mg/dL (70-99) Test 10/22/18 02:05 10/22/18 05:45 Glucose (Fingerstick) 285 mg/dL (70-99) White Blood Count 11.4 x10^3/uL (4.0-11.0) Red Blood Count 3.76 x10^6/uL (4.30-5.70) Hemoglobin 11.7 g/dL (13.0-17.5) Hematocrit 33.2 % (39.0-53.0) Mean Corpuscular Volume 88 fL (79-100) Mean Corpuscular Hemoglobin 31 pg (25-35) Mean Corpuscular Hemoglobin Concent 35 g/dL (31-37) Red Cell Distribution Width 13.2 % (11.5-14.5) Platelet Count 134 x10^3/uL (140-400) Sodium Level 139 mmol/L (136-145) Potassium Level 4.8 mmol/L (3.5-5.1) Chloride Level 105 mmol/L (98-107) Carbon Dioxide Level 23 mmol/L (21-32) Anion Gap 11 (6-14) Blood Urea Nitrogen 13 mg/dL (8-26) Creatinine 1.4 mg/dL (0.7-1.3) Estimated GFR (Cockcroft-Gault) 51.5 Glucose Level 217 mg/dL (70-99) Calcium Level 8.8 mg/dL (8.5-10.1) Magnesium Level 2.0 mg/dL (1.8-2.4) Laboratory Tests Test 10/21/18 09:49 10/21/18 10:56 10/21/18 11:33 10/21/18 12:10 Activated Clotting Time 779 sec (92-181) 687 sec (92-181) 574 sec (92-181) 106 sec (92-181) Test 10/21/18 12:45 10/21/18 13:12 10/21/18 14:00 10/21/18 14:08 White Blood Count 5.3 x10^3/uL (4.0-11.0) 5.0 x10^3/uL (4.0-11.0) Hemoglobin 12.6 g/dL (13.0-17.5) 13.4 g/dL (13.0-17.5) Hematocrit 35.6 % (39.0-53.0) 37.8 % (39.0-53.0) Platelet Count 86 x10^3/uL (140-400) 118 x10^3/uL (140-400) Prothrombin Time 17.3 SEC (11.7-14.0) 16.2 SEC (11.7-14.0) Prothromb Time International Ratio 1.4 (0.8-1.1) 1.3 (0.8-1.1) Activated Partial Thromboplast Time 26 SEC (24-38) 25 SEC (24-38) Fibrinogen 176 mg/dL (200-440) O2 Saturation 96 % (92-99) Arterial Blood pH 7.26 (7.35-7.45) Arterial Blood pCO2 at Patient Temp 46 mmHg (35-46) Arterial Blood pO2 at Patient Temp 95 mmHg (65-108) Arterial Blood HCO3 20 mmol/L (21-28) Arterial Blood Base Excess -7 mmol/L (-3-3) Oxyhemoglobin 95.2 % Methemoglobin 0.5 % (0.0-1.9) Carbon Monoxide, Quantitative 0.5 % (0.0-1.9) FiO2 80% Glucose (Fingerstick) 124 mg/dL (70-99) Red Blood Count 4.30 x10^6/uL (4.30-5.70) Mean Corpuscular Volume 88 fL (79-100) Mean Corpuscular Hemoglobin 31 pg (25-35) Mean Corpuscular Hemoglobin Concent 36 g/dL (31-37) Red Cell Distribution Width 12.9 % (11.5-14.5) Sodium Level 145 mmol/L (136-145) Potassium Level 4.0 mmol/L (3.5-5.1) Chloride Level 111 mmol/L (98-107) Carbon Dioxide Level 24 mmol/L (21-32) Anion Gap 10 (6-14) Blood Urea Nitrogen 11 mg/dL (8-26) Creatinine 1.2 mg/dL (0.7-1.3) Estimated GFR (Cockcroft-Gault) 61.6 Glucose Level 131 mg/dL (70-99) Calcium Level 9.0 mg/dL (8.5-10.1) Magnesium Level 2.2 mg/dL (1.8-2.4) Test 10/21/18 16:39 10/21/18 17:35 10/21/18 17:36 10/21/18 21:05 O2 Saturation 97 % (92-99) Arterial Blood pH 7.38 (7.35-7.45) Arterial Blood pH (Temp corrected) 7.36 Arterial Blood pCO2 at Patient Temp 42 mmHg (35-46) Arterial Blood pCO2 (Temp correct) 45 mmHg Arterial Blood pO2 at Patient Temp 99 mmHg (65-108) Arterial Blood pO2 (Temp corrected) 107 mmHg Arterial Blood HCO3 25 mmol/L (21-28) Arterial Blood Base Excess -1 mmol/L (-3-3) White Blood Count 12.2 x10^3/uL (4.0-11.0) Red Blood Count 4.01 x10^6/uL (4.30-5.70) Hemoglobin 12.5 g/dL (13.0-17.5) Hematocrit 35.2 % (39.0-53.0) Mean Corpuscular Volume 88 fL (79-100) Mean Corpuscular Hemoglobin 31 pg (25-35) Mean Corpuscular Hemoglobin Concent 36 g/dL (31-37) Red Cell Distribution Width 13.4 % (11.5-14.5) Platelet Count 149 x10^3/uL (140-400) Sodium Level 144 mmol/L (136-145) Potassium Level 4.5 mmol/L (3.5-5.1) Chloride Level 110 mmol/L (98-107) Carbon Dioxide Level 24 mmol/L (21-32) Anion Gap 10 (6-14) Blood Urea Nitrogen 13 mg/dL (8-26) Creatinine 1.3 mg/dL (0.7-1.3) Estimated GFR (Cockcroft-Gault) 56.1 BUN/Creatinine Ratio 10 (6-20) Glucose Level 274 mg/dL (70-99) Calcium Level 8.8 mg/dL (8.5-10.1) Magnesium Level 1.9 mg/dL (1.8-2.4) Total Bilirubin 1.0 mg/dL (0.2-1.0) Aspartate Amino Transf (AST/SGOT) 57 U/L (15-37) Alanine Aminotransferase (ALT/SGPT) 28 U/L (16-63) Alkaline Phosphatase 47 U/L (46-116) Total Protein 5.1 g/dL (6.4-8.2) Albumin 3.6 g/dL (3.4-5.0) Albumin/Globulin Ratio 2.4 (1.0-1.7) Glucose (Fingerstick) 225 mg/dL (70-99) 291 mg/dL (70-99) Test 10/22/18 02:05 10/22/18 05:45 Glucose (Fingerstick) 285 mg/dL (70-99) White Blood Count 11.4 x10^3/uL (4.0-11.0) Red Blood Count 3.76 x10^6/uL (4.30-5.70) Hemoglobin 11.7 g/dL (13.0-17.5) Hematocrit 33.2 % (39.0-53.0) Mean Corpuscular Volume 88 fL (79-100) Mean Corpuscular Hemoglobin 31 pg (25-35) Mean Corpuscular Hemoglobin Concent 35 g/dL (31-37) Red Cell Distribution Width 13.2 % (11.5-14.5) Platelet Count 134 x10^3/uL (140-400) Sodium Level 139 mmol/L (136-145) Potassium Level 4.8 mmol/L (3.5-5.1) Chloride Level 105 mmol/L (98-107) Carbon Dioxide Level 23 mmol/L (21-32) Anion Gap 11 (6-14) Blood Urea Nitrogen 13 mg/dL (8-26) Creatinine 1.4 mg/dL (0.7-1.3) Estimated GFR (Cockcroft-Gault) 51.5 Glucose Level 217 mg/dL (70-99) Calcium Level 8.8 mg/dL (8.5-10.1) Magnesium Level 2.0 mg/dL (1.8-2.4) Medications Current Medications Aspirin (DailyCred Aspirin) 325 mg 1X ONCE PO Last administered on 10/17/18at 19:02; Start 10/17/18 at 18:30; Stop 10/17/18 at 19:02; Status DC Enoxaparin Sodium (Lovenox 100mg Syringe) 90 mg 1X ONCE SQ Last administered on 10/17/18at 19:51; Start 10/17/18 at 19:15; Stop 10/17/18 at 19:23; Status DC Ondansetron HCl (Zofran) 4 mg PRN Q6HRS PRN IV NAUSEA/VOMITING; Start 10/17/18 at 20:45; Stop 10/21/18 at 13:24; Status DC Acetaminophen (Tylenol) 500 mg PRN Q6HRS PRN PO MILD PAIN / TEMP; Start 10/17/18 at 20:45; Stop 10/22/18 at 09:08; Status DC Acetaminophen/ Codeine Phosphate (Tylenol #3) 1 tab PRN Q6HRS PRN PO MODERATE PAIN Last administered on 10/18/18at 11:26; Start 10/17/18 at 20:45 Zolpidem Tartrate (Ambien) 5 mg PRN QHS PRN PO INSOMNIA Last administered on 10/18/18at 22:19; Start 10/17/18 at 20:45; Stop 10/19/18 at 08:30; Status DC Labetalol HCl (Normodyne Iv Push) 20 mg PRN Q2HR PRN IVP HYPERTENSION; Start 10/17/18 at 20:45 Sodium Chloride 1,000 ml @ 100 mls/hr 1X ONCE IV Last administered on 10/17/18at 23:32; Start 10/17/18 at 20:45; Stop 10/18/18 at 06:44; Status DC Iodixanol (Visipaque 320) 100 ml STK-MED ONCE .ROUTE ; Start 10/18/18 at 09:17; Stop 10/18/18 at 09:17; Status DC Lidocaine HCl (Lidocaine 1% 20ml Vial) 20 ml STK-MED ONCE .ROUTE ; Start 10/18/18 at 09:17; Stop 10/18/18 at 09:17; Status DC Heparin Sodium/ Sodium Chloride 1,000 ml @ As Directed STK-MED ONCE .ROUTE ; Start 10/18/18 at 09:17; Stop 10/18/18 at 09:17; Status DC Fentanyl Citrate (Fentanyl 2ml Vial) 100 mcg STK-MED ONCE .ROUTE ; Start 10/18/18 at 09:24; Stop 10/18/18 at 09:24; Status DC Midazolam HCl (Versed) 5 mg STK-MED ONCE .ROUTE ; Start 10/18/18 at 09:24; Stop 10/18/18 at 09:24; Status DC Heparin Sodium (Porcine) (Heparin Sodium) 10,000 unit STK-MED ONCE .ROUTE ; Start 10/18/18 at 09:26; Stop 10/18/18 at 09:26; Status DC Verapamil HCl (Verapamil) 5 mg STK-MED ONCE .ROUTE ; Start 10/18/18 at 09:26; Stop 10/18/18 at 09:26; Status DC Nitroglycerin (Nitroglycerin) 200 mcg STK-MED ONCE .ROUTE ; Start 10/18/18 at 09:26; Stop 10/18/18 at 09:26; Status DC Iodixanol (Visipaque 320) 100 ml STK-MED ONCE .ROUTE ; Start 10/18/18 at 09:53; Stop 10/18/18 at 09:53; Status DC Nitroglycerin (Nitroglycerin) 200 mcg 1X ONCE IART Last administered on 10/18/18at 10:50; Start 10/18/18 at 10:15; Stop 10/18/18 at 10:21; Status DC Verapamil HCl (Verapamil) 2.5 mg 1X ONCE IART Last administered on 10/18/18at 10:50; Start 10/18/18 at 10:15; Stop 10/18/18 at 10:21; Status DC Heparin Sodium (Porcine) (Heparin Sodium) 2,500 unit 1X ONCE IART Last administered on 10/18/18at 10:50; Start 10/18/18 at 10:15; Stop 10/18/18 at 10:21; Status DC Heparin Sodium/ Sodium Chloride (HEPARIN for ARTERIAL LINE FLUSH) 1,000 unit 1X ONCE IART Last administered on 10/18/18at 10:50; Start 10/18/18 at 10:15; Stop 10/18/18 at 10:21; Status DC Heparin Sodium/ Sodium Chloride (HEPARIN for ARTERIAL LINE FLUSH) 1,000 unit 1X ONCE IART Last administered on 10/18/18at 10:50; Start 10/18/18 at 10:15; Stop 10/18/18 at 10:21; Status DC Midazolam HCl (Versed) 5 mg 1X ONCE IV Last administered on 10/18/18at 10:50; Start 10/18/18 at 10:15; Stop 10/18/18 at 10:21; Status DC Fentanyl Citrate (Fentanyl 2ml Vial) 100 mcg 1X ONCE IV Last administered on 10/18/18at 10:50; Start 10/18/18 at 10:15; Stop 10/18/18 at 10:21; Status DC Lidocaine HCl (Lidocaine 1% 20ml Vial) 20 ml 1X ONCE INJ Last administered on 10/18/18at 10:50; Start 10/18/18 at 10:15; Stop 10/18/18 at 10:21; Status DC Iodixanol (Visipaque 320) 100 ml 1X ONCE IART Last administered on 10/18/18at 10:50; Start 10/18/18 at 10:15; Stop 10/18/18 at 10:21; Status DC Info (CONTRAST GIVEN -- Rx MONITORING) 1 each PRN DAILY PRN MC SEE COMMENTS; Start 10/18/18 at 10:30; Stop 10/20/18 at 10:29; Status DC Sodium Chloride (Normal Saline Flush) 3 ml QSHIFT PRN IV AFTER MEDS AND BLOOD DRAWS; Start 10/18/18 at 11:00; Stop 10/22/18 at 09:07; Status DC Sodium Chloride 1,000 ml @ 75 mls/hr [id number] IV Last administered on 10/18/18at 11:20; Start 10/18/18 at 11:30; Stop 10/18/18 at 11:31; Status DC Nitroglycerin (Nitrostat) 0.4 mg PRN Q5MIN PRN SL CHEST PAIN; Start 10/18/18 at 11:00 Metoprolol Tartrate (Lopressor) 12.5 mg BID PO Last administered on 10/18/18at 11:26; Start 10/18/18 at 11:00; Stop 10/18/18 at 15:10; Status DC Atorvastatin Calcium (Lipitor) 20 mg QHS PO ; Start 10/18/18 at 21:00; Stop 10/18/18 at 15:07; Status DC Heparin Sodium/ Dextrose 500 ml @ 0 mls/hr CONT PRN PRN IV SEE PROTOCOL Last administered on 10/21/18 06:00; Start 10/18/18 at 11:00 Heparin Sodium (Porcine) (Heparin Sodium) 2,300 unit PRN Q6HRS PRN IV FOR UFH LEVEL LESS THAN 0.2; Start 10/18/18 at 11:00 Cefazolin Sodium/ Dextrose 50 ml @ 100 mls/hr 1X PREOP PRN IV PRIOR TO PROCEDURE; Start 10/19/18 at 06:00; Stop 10/19/18 at 14:00; Status DC Atorvastatin Calcium (Lipitor) 40 mg QHS PO Last administered on 10/21/18 21:00; Start 10/18/18 at 21:00 Metoprolol Tartrate (Lopressor) 25 mg BID PO Last administered on 10/20/18 20:37; Start 10/18/18 at 21:00; Stop 10/21/18 at 13:27; Status DC Aspirin (Ecotrin) 81 mg [id number] PO Last administered on 10/20/18 08:54; Start 10/18/18 at 15:15; Stop 10/21/18 at 13:26; Status DC Acetaminophen/ Hydrocodone Bitart (Lortab 7.5/325) 1 tab PRN Q6HRS PRN PO PAIN SEVERE Last administered on 10/18/18at 16:49; Start 10/18/18 at 16:15 Alprazolam (Xanax) 0.5 mg Q6HRS PRN PO ANXIETY / AGITATION Last administered on 10/20/18 18:46; Start 10/18/18 at 19:15 Morphine Sulfate (Morphine Sulfate) 2 mg PRN Q2HR PRN IV PAIN Last administered on 10/20/18 18:46; Start 10/18/18 at 20:00; Stop 10/22/18 at 09:09; Status DC Zolpidem Tartrate (Ambien) 5 mg PRN QHS PRN PO INSOMNIA Last administered on 10/21/18 21:00; Start 10/19/18 at 08:30 Metformin HCl (Glucophage) 500 mg BIDWMEALS PO ; Start 10/19/18 at 17:00; Stop 10/20/18 at 08:55; Status DC Glyburide (Diabeta) 1.25 mg BIDWMEALS PO Last administered on 10/20/18at 08:54; Start 10/19/18 at 17:00; Stop 10/20/18 at 08:55; Status DC Insulin Human Lispro (HumaLOG) 0-9 UNITS TIDWMEALS SQ Last administered on 10/21at 07:06; Start 10/19/18 at 12:00 Dextrose (Dextrose 50%-Water Syringe) 12.5 gm PRN Q15MIN PRN IV SEE COMMENTS; Start 10/19/18 at 11:30; Stop 10/22/18 at 09:09; Status DC Dextrose 250 ml PRN Q15MIN PRN IV SEE COMMENTS; Start 10/19/18 at 11:30; Status UNV Nitroglycerin (Nitro-Bid Oint) 0.5 inch Q6HRS TP ; Start 10/19/18 at 18:00 Info (Anti-Coagulation Monitoring By Pharmacy) 1 each PRN DAILY PRN MC SEE COMMENTS Last administered on 10/20/18at 15:10; Start 10/19/18 at 13:45 Docusate Sodium (Colace) 100 mg BID PO Last administered on 10/22/18at 08:10; Start 10/19/18 at 21:00 Polyethylene Glycol (miraLAX PACKET) 17 gm DAILY PO Last administered on 10/22/18at 08:10; Start 10/19/18 at 17:00 Magnesium Hydroxide (Milk Of Magnesia) 2,400 mg PRN DAILY PRN PO CONSTIPATION; Start 10/19/18 at 17:00 Magnesium Hydroxide (Milk Of Magnesia) 2,400 mg 1X ONCE PO Last administered on 10/19/18at 17:52; Start 10/19/18 at 17:00; Stop 10/19/18 at 17:02; Status DC Nitroglycerin/ Dextrose 250 ml @ 1.5 mls/hr CONT PRN IV SEE I/O RECORD Last administered on 10/19/18at 18:37; Start 10/19/18 at 18:30; Stop 10/22/18 at 09:09; Status DC Glyburide (Diabeta) 2.5 mg BIDWMEALS PO ; Start 10/20/18 at 09:00; Stop 10/20/18 at 09:10; Status DC Glyburide (Diabeta) 2.5 mg BIDWMEALS PO Last administered on 10/20/18at 17:42; Start 10/20/18 at 17:00 Glyburide (Diabeta) 1.25 mg 1X ONCE PO Last administered on 10/20/18at 09:26; Start 10/20/18 at 09:30; Stop 10/20/18 at 09:31; Status DC Heparin Sodium (Porcine) 93940 unit/Ringer's Solution 1,020 ml @ 1,020 mls/hr 1X PERIOP@0600 ONCE IRR Last administered on 10/21/18at 10:24; Start 10/21/18 at 06:00; Stop 10/21/18 at 06:59; Status DC Potassium Chloride 70 meq/ Sodium Bicarbonate 12.5 meq/Lidocaine HCl 24 ml/Parenteral Electrolytes 571.5 ml @ 571.5 mls/ hr 1X PERIOP@0600 ONCE IRR ; Start 10/21/18 at 06:00; Stop 10/21/18 at 06:59; Status DC Potassium Chloride 15 meq/ Sodium Bicarbonate 12.5 meq/Parenteral Electrolytes 520 ml @ 520 mls/hr 1X PERIOP@0600 ONCE IRR ; Start 10/21/18 at 06:00; Stop 10/21/18 at 06:59; Status DC Cefazolin Sodium 1 gm/Sodium Chloride 500 ml @ 500 mls/hr 1X ONCE IRR Last administered on 10/21/18at 10:24; Start 10/21/18 at 06:00; Stop 10/21/18 at 06:59; Status DC Calcium Carbonate/ Glycine (Tums) 500 mg PRN Q3HRS PRN PO INDIGESTION Last administered on 10/20/18at 20:37; Start 10/20/18 at 20:15 Phenylephrine HCl (PHENYLEPHRINE in 0.9% NACL PF) 1 mg STK-MED ONCE IV ; Start 10/21/18 at 06:28; Stop 10/21/18 at 06:28; Status DC Etomidate (Amidate) 20 mg STK-MED ONCE IV ; Start 10/21/18 at 06:28; Stop 10/21/18 at 06:28; Status DC Aminocaproic Acid (Amicar) 5,000 mg STK-MED ONCE IV ; Start 10/21/18 at 06:28; Stop 10/21/18 at 06:28; Status DC Nitroglycerin/ Dextrose 0 ml @ As Directed STK-MED ONCE IV ; Start 10/21/18 at 06:28; Stop 10/21/18 at 06:28; Status DC Rocuronium [place] (Zemuron) 100 mg STK-MED ONCE .ROUTE ; Start 10/21/18 at 06:28; Stop 10/21/18 at 06:28; Status DC Heparin Sodium (Porcine) 30,000 unit STK-MED ONCE .ROUTE ; Start 10/21/18 at 06:29; Stop 10/21/18 at 06:29; Status DC Ondansetron HCl (Zofran) 4 mg PRN Q6HRS PRN IV NAUSEA/VOMITING; Start 10/21/18 at 06:30; Stop 10/22/18 at 06:29; Status DC Fentanyl Citrate (Fentanyl 2ml Vial) 25 mcg PRN Q5MIN PRN IV MILD PAIN 1-3; Start 10/21/18 at 06:30; Stop 10/22/18 at 06:29; Status DC Fentanyl Citrate (Fentanyl 2ml Vial) 50 mcg PRN Q5MIN PRN IV MODERATE TO SEVERE PAIN; Start 10/21/18 at 06:30; Stop 10/22/18 at 06:29; Status DC Morphine Sulfate (Morphine Sulfate) 1 mg PRN Q10MIN PRN IV SEVERE PAIN 7-10; Start 10/21/18 at 06:30; Stop 10/22/18 at 06:29; Status DC Ringer's Solution 1,000 ml @ 30 mls/hr Q24H IV ; Start 10/21/18 at 06:30; Stop 10/21/18 at 18:29; Status DC Hydromorphone HCl (Dilaudid) 0.5 mg PRN Q10MIN PRN IV SEV PAIN, Second choice; Start 10/21/18 at 06:30; Stop 10/22/18 at 06:29; Status DC Prochlorperazine Edisylate (Compazine) 5 mg PACU PRN PRN IV NAUSEA, MRX1; Start 10/21/18 at 06:30; Stop 10/22/18 at 06:29; Status DC Nitroglycerin/ Dextrose 250 ml @ As Directed STK-MED ONCE IV ; Start 10/21/18 a t 06:42; Stop 10/21/18 at 06:43; Status DC Sufentanil Citrate (Sufenta) 250 mcg STK-MED ONCE .ROUTE ; Start 10/21/18 at 06:45; Stop 10/21/18 at 06:46; Status DC Midazolam HCl (Versed) 2 mg STK-MED ONCE .ROUTE ; Start 10/21/18 at 06:45; Stop 10/21/18 at 06:46; Status DC Vancomycin HCl (VANCO for OR ONLY) 10 gm STK-MED ONCE .ROUTE Last administered on 10/21/18at 10:19; Start 10/21/18 at 06:58; Stop 10/21/18 at 06:59; Status DC Cellulose (Surgicel Hemostat 4x8) 1 each STK-MED ONCE .ROUTE Last administered on 10/21/18 10:19; Start 10/21/18 at 06:59; Stop 10/21/18 at 06:59; Status DC Papaverine HCl 60 mg STK-MED ONCE .ROUTE Last administered on 10/21/18at 10:24; Start 10/21/18 at 06:59; Stop 10/21/18 at 06:59; Status DC Sodium Chloride (SODIUM CHLORIDE 20ml) 20 ml STK-MED ONCE IJ Last administered on 10/21/18at 10:19; Start 10/21/18 at 06:59; Stop 10/21/18 at 06:59; Status DC Sodium Chloride (SODIUM CHLORIDE 20ml) 20 ml STK-MED ONCE IJ Last administered on 10/21/18at 10:19; Start 10/21/18 at 06:59; Stop 10/21/18 at 07:00; Status DC Sodium Chloride (SODIUM CHLORIDE 20ml) 20 ml STK-MED ONCE IJ Last administered on 10/21/18at 10:19; Start 10/21/18 at 06:59; Stop 10/21/18 at 07:00; Status DC Insulin Human Regular 150 unit/ Sodium Chloride 151.5 ml @ 9.292 mls/ hr CONT PRN IV SEE I/O RECORD; Start 10/21/18 at 07:15; Stop 10/22/18 at 09:09; Status DC Aspirin (Aspirin Rectal Supp) 300 mg 1X ONCE GA Last administered on 10/21/18at 13:12; Start 10/21/18 at 07:30; Stop 10/21/18 at 07:31; Status DC Cefazolin Sodium/ Dextrose 50 ml @ 100 mls/hr 1X PREOP PRN IV PRIOR TO PROCEDURE; Start 10/22/18 at 06:00; Stop 10/22/18 at 18:00 Heparin Sodium (Porcine) (Heparin Sodium) 10,000 unit STK-MED ONCE .ROUTE ; Start 10/21/18 at 09:06; Stop 10/21/18 at 09:06; Status DC Rocuronium [place] (Zemuron) 50 mg STK-MED ONCE .ROUTE ; Start 10/21/18 at 09:39; Stop 10/21/18 at 09:39; Status DC Cefazolin Sodium (Ancef) 1 gm STK-MED ONCE .ROUTE ; Start 10/21/18 at 09:40; Stop 10/21/18 at 09:41; Status DC Cefazolin Sodium (Ancef) 1 gm STK-MED ONCE .ROUTE ; Start 10/21/18 at 09:40; Stop 10/21/18 at 09:41; Status DC Insulin Glargine (Lantus Syringe) 15 unit QHS SQ Last administered on 10/21/18at 21:11; Start 10/21/18 at 21:00 Midazolam HCl (Versed) 2 mg STK-MED ONCE .ROUTE ; Start 10/21/18 at 10:12; Stop 10/21/18 at 10:12; Status DC Albumin Human 500 ml @ As Directed STK-MED ONCE IV ; Start 10/21/18 at 12:03; Stop 10/21/18 at 12:03; Status DC Lidocaine HCl (Lidocaine Pf 2% Vial) 5 ml STK-MED ONCE .ROUTE ; Start 10/21/18 at 12:08; Stop 10/21/18 at 12:08; Status DC Magnesium Sulfate 5 gm STK-MED ONCE .ROUTE ; Start 10/21/18 at 12:08; Stop 10/21/18 at 12:08; Status DC Heparin Sodium (Porcine) 30,000 unit STK-MED ONCE .ROUTE ; Start 10/21/18 at 12:08; Stop 10/21/18 at 12:08; Status DC Mannitol (Mannitol) 12.5 g STK-MED ONCE .ROUTE ; Start 10/21/18 at 12:08; Stop 10/21/18 at 12:08; Status DC Albumin Human 100 ml @ As Directed STK-MED ONCE IV ; Start 10/21/18 at 12:08; Stop 10/21/18 at 12:08; Status DC Calcium Chloride (Calcium Chloride) 1,000 mg STK-MED ONCE .ROUTE ; Start 10/21/18 at 12:08; Stop 10/21/18 at 12:08; Status DC Rocuronium [place] (Zemuron) 50 mg STK-MED ONCE .ROUTE ; Start 10/21/18 at 12:47; Stop 10/21/18 at 12:47; Status DC Fentanyl Citrate (Fentanyl 2ml Vial) 100 mcg STK-MED ONCE .ROUTE ; Start 10/21/18 at 13:00; Stop 10/21/18 at 13:00; Status DC Sodium Chloride (Normal Saline Flush) 3 ml PRN Q12HR PRN IV AFTER MEDS AND BLOOD DRAWS; Start 10/21/18 at 13:15 Ringer's Solution 1,000 ml @ 30 mls/hr Q24H IV Last administered on 10/21/18at 15:59; Start 10/21/18 at 13:12 Albumin Human 250 ml @ 500 mls/hr PRN Q4HRS PRN IV SEE COMMENTS Last administe red on 10/21/18at 18:29; Start 10/21/18 at 13:15 Insulin Human Regular 150 unit/ Sodium Chloride 151.5 ml @ 0 mls/hr CONT PRN P RN IV PER PROTOCOL Last administered on 10/22/18at 02:29; Start 10/21/18 at 13:15 Dextrose (Dextrose 50%-Water Syringe) 25 gm PRN Q15MIN PRN IV LOW BLOOD SUGAR; Start 10/21/18 at 13:15 Nitroglycerin/ Dextrose 250 ml @ 0 mls/hr CONT PRN PRN IV POST CV SURGERY; Start 10/21/18 at 13:15 Phenylephrine HCl 20 mg/Sodium Chloride 252 ml @ 0 mls/hr CONT PRN PRN IV HYPOTENSION; Start 10/21/18 at 13:15 Amiodarone HCl 150 mg/Dextrose 103 ml @ 600 mls/hr 1X ONCE IV Last administered on 10/21/18at 15:59; Start 10/21/18 at 13:15; Stop 10/21/18 at 13:29; Status DC Amiodarone HCl 150 mg/Dextrose 103 ml @ 200 mls/hr 1X PRN PRN IV FOR AFIB; Start 10/21/18 at 13:15 Amiodarone HCl 900 mg/Dextrose 518 ml @ 0 mls/hr CONT PRN PRN IV AFIB Last administered on 10/21/18at 15:59; Start 10/21/18 at 13:15 Info (KCl Per Protocol) 1 ea CONT PRN PRN MC SEE COMMENTS; Start 10/21/18 at 13:15 Magnesium Sulfate/ Dextrose 100 ml @ 100 mls/hr PRN DAILY PRN IV FOR MAG < 2.2; Start 10/21/18 at 13:15 Famotidine (Pepcid Vial) 20 mg BID IVP Last administered on 10/22/18at 08:10; Start 10/21/18 at 21:00 Ondansetron HCl (Zofran) 4 mg PRN Q4HRS PRN IV NAUSEA/VOMITING, 1st CHOICE; Start 10/21/18 at 13:15 Prochlorperazine Edisylate (Compazine) 10 mg PRN Q6HRS PRN IV NAUSEA/VOMITING, 2nd CHOICE; Start 10/21/18 at 13:15 Metoclopramide HCl (Reglan Vial) 10 mg PRN Q6HRS PRN IV NAUSEA/VOMITING, 3rd CHOICE; Start 10/21/18 at 13:15 Morphine Sulfate (Morphine Sulfate) 2 mg PRN Q1HR PRN IV MODERATE PAIN; Start 10/21/18 at 13:15 Morphine Sulfate (Morphine Sulfate) 4 mg PRN Q1HR PRN IV SEVERE PAIN Last administered on 10/22/18at 08:08; Start 10/21/18 at 13:15 Acetaminophen (Tylenol) 650 mg PRN Q4HRS PRN PO TEMP > 101'F or MILD PAIN Last administered on 10/21/18at 16:29; Start 10/21/18 at 13:15 Acetaminophen (Tylenol Supp) 650 mg PRN Q4HRS PRN GA TEMP > 101'F or MILD PAIN; Start 10/21/18 at 13:15 Meperidine HCl (Demerol) 12.5 mg PRN Q15MIN PRN IV SHIVERING; Start 10/21/18 at 13:15 Senna/Docusate Sodium (Senna Plus) 1 tab BID PO Last administered on 10/22/18at 0 8:10; Start 10/21/18 at 21:00 Bisacodyl (Dulcolax Supp) 10 mg PRN DAILY PRN GA NO BOWEL MOVEMENT; Start 10/21/18 at 13:15 Chlorhexidine Gluconate (Peridex) 15 ml BID MM ; Start 10/22/18 at 09:00 Aspirin (Ecotrin) 325 mg DAILYWBKFT PO Last administered on 10/22/18at 08:10; Start 10/22/18 at 08:00 Aspirin (Aspirin Rectal Supp) 300 mg PRN DAILY PRN GA IF UNABLE TO TAKE PO; Start 10/22/18 at 08:00 Albuterol Sulfate (Ventolin Neb Soln) 2.5 mg PRN Q4HRS PRN NEB SHORTNESS OF BREATH; Start 10/21/18 at 13:15 Metoprolol Tartrate (Lopressor) 25 mg BID PO ; Start 10/22/18 at 09:00 Nicardipine HCl 50 mg/Sodium Chloride 250 ml @ 0 mls/hr CONT PRN PRN IV PER PROTOCOL; Start 10/21/18 at 13:15 Oxycodone HCl (Roxicodone) 5 mg PRN Q4HRS PRN PO MILD TO MODERATE PAIN; Start 10/21/18 at 13:15 Oxycodone HCl (Roxicodone) 10 mg PRN Q4HRS PRN PO SEVERE PAIN Last administered on 10/22/18at 03:18; Start 10/21/18 at 13:15 Dextrose 250 ml PRN Q15MIN PRN IV LOW BLOOD SUGAR; Start 10/21/18 at 13:15 Cefazolin Sodium/ Dextrose 50 ml @ 100 mls/hr Q8H IV Last administered on 10/22/18at 00:07; Start 10/21/18 at 16:30; Stop 10/23/18 at 00:59 Sodium Bicarbonate (Sodium Bicarb Adult 8.4% Syr) 50 meq 1X ONCE IV Last administered on 10/21/18at 15:59; Start 10/21/18 at 15:00; Stop 10/21/18 at 15:07; Status DC Potassium Chloride/Water 50 ml @ 50 mls/hr 1X ONCE IV ; Start 10/21/18 at 18:00; Stop 10/21/18 at 18:39; Status DC Vitals/I & O Vital Sign - Last 24 Hours 10/21/18 10/21/18 10/21/18 10/21/18 13:30 13:30 13:30 13:30 Temp 98.6 98.6 Pulse 95 95 Resp 16 B/P (MAP) 122/37 (65) 122/37 (65) Pulse Ox 100 100 O2 Delivery Ventilator Ventilator Mechanical Ventilator 10/21/18 10/21/18 10/21/18 10/21/18 13:45 14:00 14:15 14:30 Pulse 98 98 111 109 B/P (MAP) 85/45 (58) 77/57 (64) 134/66 (88) 156/71 (99) 10/21/18 10/21/18 10/21/18 10/21/18 15:00 15:59 16:00 16:00 Temp 100.2 100.2 Pulse 105 95 105 98 Resp 18 B/P (MAP) 109/57 (74) 109/57 120/66 (84) 119/64 (82) Pulse Ox 100 O2 Delivery Ventilator 10/21/18 10/21/18 10/21/18 10/21/18 17:00 17:00 17:14 17:52 Pulse 98 99 Resp 18 20 20 B/P (MAP) 85/51 (62) 82/48 (59) Pulse Ox 100 100 100 O2 Delivery Ventilator Nasal Cannula Nasal Cannula O2 Flow Rate 3.0 3.0 10/21/18 10/21/18 10/21/18 10/21/18 18:00 18:00 19:00 19:00 Pulse 94 95 94 Resp 16 16 B/P (MAP) 90/55 (67) 90/55 (67) 78/64 (69) Pulse Ox 100 100 O2 Delivery Nasal Cannula Nasal Cannula O2 Flow Rate 3.0 3.0 10/21/18 10/21/18 10/21/18 10/21/18 19:11 20:00 20:00 20:00 Temp 100.4 100.4 Pulse 88 Resp 16 16 B/P (MAP) 75/67 (70) Pulse Ox 99 100 O2 Delivery Nasal Cannula Nasal Cannula Nasal Cannula O2 Flow Rate 3.0 2.0 2.0 10/21/18 10/21/18 10/21/1819 20:14 21:00 21:00 21:00 Temp 99.7 99.7 Pulse 86 Resp 16 16 18 B/P (MAP) 99/58 (72) Pulse Ox 100 100 100 O2 Delivery Nasal Cannula Nasal Cannula Nasal Cannula O2 Flow Rate 2.0 2.0 2.0 10/21/18 10/21/18 10/21/18 10/21/18 21:32 22:00 22:00 23:00 Temp 99.4 99.2 99.4 99.2 Pulse 79 77 Resp 14 18 14 B/P (MAP) 90/51 (64) 118/79 (92) Pulse Ox 100 100 100 O2 Delivery Nasal Cannula Nasal Cannula Nasal Cannula O2 Flow Rate 2.0 2.0 2.0 10/21/18 10/21/18 10/22/18 10/22/18 23:00 23:08 00:00 00:00 Resp 20 B/P (MAP) Pulse Ox 100 O2 Delivery Nasal Cannula Nasal Cannula O2 Flow Rate 2.0 2.0 10/22/18 10/22/18 10/22/18 10/22/18 00:00 00:13 00:36 01:00 Temp 98.6 98.6 Pulse 76 Resp 18 18 14 B/P (MAP) 112/70 (84) Pulse Ox 100 100 100 O2 Delivery Nasal Cannula Nasal Cannula Nasal Cannula O2 Flow Rate 2.0 2.0 2.0 10/22/18 10/22/18 10/22/18 10/22/18 01:00 01:09 02:00 02:00 Temp 98.8 98.4 98.8 98.4 Pulse 74 76 Resp 18 14 20 B/P (MAP) 101/70 (80) 112/89 (97) Pulse Ox 100 100 100 O2 Delivery Nasal Cannula Nasal Cannula Nasal Cannula O2 Flow Rate 2.0 2.0 2.0 10/22/18 10/22/18 10/22/18 10/22/18 03:00 03:00 03:18 04:00 Temp 98.1 97.9 98.1 97.9 Pulse 72 71 Resp 14 18 15 B/P (MAP) 116/85 (95) 110/74 (86) Pulse Ox 100 100 100 O2 Delivery Nasal Cannula Nasal Cannula Nasal Cannula O2 Flow Rate 2.0 2.0 2.0 10/22/18 10/22/18 10/22/18 10/22/18 04:00 04:00 04:31 05:00 Temp 98.0 98.0 Pulse 70 Resp 14 16 B/P (MAP) 90/78 (82) Pulse Ox 100 100 O2 Delivery Nasal Cannula Nasal Cannula Nasal Cannula O2 Flow Rate 2.0 2.0 2.0 10/22/18 10/22/18 10/22/18 05:00 06:00 08:08 Temp 98.2 98.2 Pulse 71 Resp 18 18 B/P (MAP) 125/66 (85) Pulse Ox 100 99 O2 Delivery Nasal Cannula Nasal Cannula O2 Flow Rate 2.0 Intake and Output 10/21/18 10/21/18 10/22/18 15:00 23:00 07:00 Intake Total 1300 ml 2764.8 ml Output Total 160 ml 1345 ml 1240 ml Balance -160 ml -45 ml 1524.8 ml LIZA WILLETT MD Oct 22, 2018 09:31
[2018-10-22] MEDS: INSULIN LISPRO 300 UNITS/3 ML VIAL. SQ SCH ×3 (09:32→17:46)
--- NOTE | 2018-10-22 10:59 | RAD ---
Single view portable AP chest HISTORY: Postop COMPARISON: 10/21/2018. Low lung volumes. Cardiomediastinal silhouettes appears stable right [place] catheter is in similar position. NG tube has been removed. Chest tube is redemonstrated. No evidence of pneumothorax. No new consolidating infiltrate. No large effusion. IMPRESSION: No new consolidating infiltrate. Electronically signed by: Fuad Singh MD (10/22/2018 10:56 AM) [facility]
[2018-10-22] MEDS: MORPHINE SULFATE 2 MG/ML VIAL. IV PRN ×2 (12:40→16:27)
[2018-10-22 13:05] LABS: HEMOGLOBIN 11.8 g/dL (13.0-17.5); RED BLOOD COUNT 3.78 x10^6/uL (4.30-5.70); RED CELL DISTRIBUTION WIDTH 13.2 % (11.5-14.5); WHITE BLOOD COUNT 11.7 x10^3/uL (4.0-11.0)
[2018-10-22] MEDS: IV RINGERS,LACTATED 1000ML 1,000 ML IV SCH (13:12)
--- NOTE | 2018-10-22 13:50 | PDOC ---
Progress Note Subjective Subjective Doing very well. Ambulated multiple times. Himrod and a-line are out. Normotensive, SR, on 2 lit NC. Minimal tube output. Borderline UO this afternoon 20-30cc/hr, creat 1.4 (baseline), Hb 11.8. CXR OK. ROS ROS No nausea No vomiting No pain No rash Vital Sign Vital Signs Vital Signs Date Time Temp Pulse Resp B/P (MAP) Pulse Ox O2 Delivery O2 Flow Rate FiO2 10/22/18 13:12 100 Nasal Cannula 2.0 10/22/18 13:00 75 18 122/70 (87) 10/22/18 12:00 98.5 98.5 Physical Exam PHYSICAL EXAM GENERAL: NAD, Alert HEENT: PERRL, OC/OP NECK: Supple, no JVD, no LN LUNGS: Clear HEART: S1S2, no gallop, no murmur, dressings intact ABD: Soft, NT, no organomegaly, no rebound EXT: No edema, no cyanosis ALARM MECHANIC: Alert, oriented x 3, no focal neurologic deficit SKIN: No rash IV: ok Labs Lab Laboratory Tests Test 10/21/18 14:00 10/21/18 14:08 10/21/18 16:39 10/21/18 17:35 Glucose (Fingerstick) 124 mg/dL (70-99) White Blood Count 5.0 x10^3/uL (4.0-11.0) 12.2 x10^3/uL (4.0-11.0) Red Blood Count 4.30 x10^6/uL (4.30-5.70) 4.01 x10^6/uL (4.30-5.70) Hemoglobin 13.4 g/dL (13.0-17.5) 12.5 g/dL (13.0-17.5) Hematocrit 37.8 % (39.0-53.0) 35.2 % (39.0-53.0) Mean Corpuscular Volume 88 fL (79-100) 88 fL (79-100) Mean Corpuscular Hemoglobin 31 pg (25-35) 31 pg (25-35) Mean Corpuscular Hemoglobin Concent 36 g/dL (31-37) 36 g/dL (31-37) Red Cell Distribution Width 12.9 % (11.5-14.5) 13.4 % (11.5-14.5) Platelet Count 118 x10^3/uL (140-400) 149 x10^3/uL (140-400) Prothrombin Time 16.2 SEC (11.7-14.0) Prothromb Time International Ratio 1.3 (0.8-1.1) Activated Partial Thromboplast Time 25 SEC (24-38) Sodium Level 145 mmol/L (136-145) 144 mmol/L (136-145) Potassium Level 4.0 mmol/L (3.5-5.1) 4.5 mmol/L (3.5-5.1) Chloride Level 111 mmol/L (98-107) 110 mmol/L (98-107) Carbon Dioxide Level 24 mmol/L (21-32) 24 mmol/L (21-32) Anion Gap 10 (6-14) 10 (6-14) Blood Urea Nitrogen 11 mg/dL (8-26) 13 mg/dL (8-26) Creatinine 1.2 mg/dL (0.7-1.3) 1.3 mg/dL (0.7-1.3) Estimated GFR (Cockcroft-Gault) 61.6 56.1 Glucose Level 131 mg/dL (70-99) 274 mg/dL (70-99) Calcium Level 9.0 mg/dL (8.5-10.1) 8.8 mg/dL (8.5-10.1) Magnesium Level 2.2 mg/dL (1.8-2.4) 1.9 mg/dL (1.8-2.4) O2 Saturation 97 % (92-99) Arterial Blood pH 7.38 (7.35-7.45) Arterial Blood pH (Temp corrected) 7.36 Arterial Blood pCO2 at Patient Temp 42 mmHg (35-46) Arterial Blood pCO2 (Temp correct) 45 mmHg Arterial Blood pO2 at Patient Temp 99 mmHg (65-108) Arterial Blood pO2 (Temp corrected) 107 mmHg Arterial Blood HCO3 25 mmol/L (21-28) Arterial Blood Base Excess -1 mmol/L (-3-3) BUN/Creatinine Ratio 10 (6-20) Total Bilirubin 1.0 mg/dL (0.2-1.0) Aspartate Amino Transf (AST/SGOT) 57 U/L (15-37) Alanine Aminotransferase (ALT/SGPT) 28 U/L (16-63) Alkaline Phosphatase 47 U/L (46-116) Total Protein 5.1 g/dL (6.4-8.2) Albumin 3.6 g/dL (3.4-5.0) Albumin/Globulin Ratio 2.4 (1.0-1.7) Test 10/21/18 17:36 10/21/18 21:05 10/22/18 02:05 10/22/18 05:45 Glucose (Fingerstick) 225 mg/dL (70-99) 291 mg/dL (70-99) 285 mg/dL (70-99) White Blood Count 11.4 x10^3/uL (4.0-11.0) Red Blood Count 3.76 x10^6/uL (4.30-5.70) Hemoglobin 11.7 g/dL (13.0-17.5) Hematocrit 33.2 % (39.0-53.0) Mean Corpuscular Volume 88 fL (79-100) Mean Corpuscular Hemoglobin 31 pg (25-35) Mean Corpuscular Hemoglobin Concent 35 g/dL (31-37) Red Cell Distribution Width 13.2 % (11.5-14.5) Platelet Count 134 x10^3/uL (140-400) Sodium Level 139 mmol/L (136-145) Potassium Level 4.8 mmol/L (3.5-5.1) Chloride Level 105 mmol/L (98-107) Carbon Dioxide Level 23 mmol/L (21-32) Anion Gap 11 (6-14) Blood Urea Nitrogen 13 mg/dL (8-26) Creatinine 1.4 mg/dL (0.7-1.3) Estimated GFR (Cockcroft-Gault) 51.5 Glucose Level 217 mg/dL (70-99) Calcium Level 8.8 mg/dL (8.5-10.1) Magnesium Level 2.0 mg/dL (1.8-2.4) Test 10/22/18 12:45 White Blood Count 11.7 x10^3/uL (4.0-11.0) Red Blood Count 3.78 x10^6/uL (4.30-5.70) Hemoglobin 11.8 g/dL (13.0-17.5) Hematocrit 33.0 % (39.0-53.0) Mean Corpuscular Volume 88 fL (79-100) Mean Corpuscular Hemoglobin 31 pg (25-35) Mean Corpuscular Hemoglobin Concent 36 g/dL (31-37) Red Cell Distribution Width 13.2 % (11.5-14.5) Platelet Count 132 x10^3/uL (140-400) Objective Assessment POD#1, s/p CABG x 2 (M[place]LENDON to LAD, SVG to OM) Doing very well. Ambulated multiple times. Himrod and a-line are out. Normotensive, SR, on 2 lit NC. Minimal tube output. Borderline UO this afternoon 20-30cc/hr, creat 1.4 (baseline), Hb 11.8. CXR OK. Plan Plan of Care D/c mediastinal drains D/c cordis If borderline UO persists over the next 1-2 hours, give 20mg iv Lasix x1 Switch amiodarone drip to 200mg po BID ASA, statin, b nury Analgesia Continue ambulation and pulm toilet ALYSE NIEVES MD Oct 22, 2018 13:50
[2018-10-22] MEDS: AMIODARONE HCL 200 MG TABLET. PO SCH ×2 (14:24→21:16)
--- NOTE | 2018-10-22 15:17 | PDOC ---
PROGRESS NOTES Subjective Subjective Patient seen and examined The patient is extubated, alert and oriented. Objective Objective Vital Signs Date Time Temp Pulse Resp B/P (MAP) Pulse Ox O2 Delivery O2 Flow Rate FiO2 10/22/18 14:26 77 121/65 10/22/18 14:26 100 Nasal Cannula 2.0 10/22/18 14:00 18 10/22/18 12:00 98.5 98.5 Intake and Output 10/22/18 06:59 Intake Total 3064.8 ml Output Total 2640 ml Balance 424.8 ml Intake Oral 1500 ml IV Total 1564.8 ml Output Urine Total 1885 ml Chest Tube Drainage Total 755 ml Physical Exam Abdomen: Normal bowel sounds Heart: Regular rate General: moderate distress Lungs: Other (slightly decreased breath sounds) Assessment Assessment Problems Medical Problems: (1) 3-vessel CAD Status: Chronic (2) ACS (acute coronary syndrome) Status: Acute (3) CKD (chronic kidney disease) Status: Chronic (4) Elevated troponin Status: Acute (5) HLD (hyperlipidemia) Status: Chronic (6) HTN (hypertension) Status: Chronic (7) Morbid obesity Status: Chronic (8) NSTEMI (non-ST elevated myocardial infarction) Status: Acute 1. NSTEMI: LHC revealed 3vd. EF and WM nml. Status post CABG �2. Postop day #1. Doing well. 2. HTN: controlled 3. HLP: statin 4. DM2: new. per PCP 5. Obesity Comment Review of Relevant I have reviewed the following items rickie (where applicable) has been applied. Labs Laboratory Tests Test 10/20/18 17:41 10/20/18 18:01 10/20/18 22:40 10/21/18 00:15 Glucose (Fingerstick) 112 mg/dL (70-99) 281 mg/dL (70-99) Heparin Anti-Xa Act, Unfractionated 0.54 IU/mL (0.30-0.70) 0.31 IU/mL (0.30-0.70) Test 10/21/18 06:53 10/21/18 08:24 10/21/18 09:49 10/21/18 10:56 Glucose (Fingerstick) 222 mg/dL (70-99) Bedside Hemoglobin (Calculated) 13.6 g/dL (14-18) Bedside Hematocrit 40 % (37-52) Bedside Arterial pH 7.38 (7.35-7.45) Bedside Arterial pCO2 47 mmHg (35-45) Bedside Arterial pO2 426 mmHg (75-100) Bedside Arterial HCO3 28 mmol/L (21-28) Bedside Arterial Total CO2 29 mmol/L (21-32) Arterial Bld O2 Saturation (Measur) 100 % (95-99) Bedside Arterial Blood Base Excess 2 mmol/L (0-3) Bedside FiO2 100.0 Bedside Sodium 139 mmol/L (135-145) Bedside Potassium 4.1 mmol/L (3.5-5.0) Glucose Level 183 mg/dL (70-99) Bedside Ionized Calcium (Angela) 1.26 mmol/L (1.13-1.32) Activated Clotting Time 779 sec (92-181) 687 sec (92-181) Test 10/21/18 11:33 10/21/18 12:10 10/21/18 12:45 10/21/18 13:12 Activated Clotting Time 574 sec (92-181) 106 sec (92-181) White Blood Count 5.3 x10^3/uL (4.0-11.0) Hemoglobin 12.6 g/dL (13.0-17.5) Hematocrit 35.6 % (39.0-53.0) Platelet Count 86 x10^3/uL (140-400) Prothrombin Time 17.3 SEC (11.7-14.0) Prothromb Time International Ratio 1.4 (0.8-1.1) Activated Partial Thromboplast Time 26 SEC (24-38) Fibrinogen 176 mg/dL (200-440) O2 Saturation 96 % (92-99) Arterial Blood pH 7.26 (7.35-7.45) Arterial Blood pCO2 at Patient Temp 46 mmHg (35-46) Arterial Blood pO2 at Patient Temp 95 mmHg (65-108) Arterial Blood HCO3 20 mmol/L (21-28) Arterial Blood Base Excess -7 mmol/L (-3-3) Oxyhemoglobin 95.2 % Methemoglobin 0.5 % (0.0-1.9) Carbon Monoxide, Quantitative 0.5 % (0.0-1.9) FiO2 80% Test 10/21/18 14:00 10/21/18 14:08 10/21/18 16:39 10/21/18 17:35 Glucose (Fingerstick) 124 mg/dL (70-99) White Blood Count 5.0 x10^3/uL (4.0-11.0) 12.2 x10^3/uL (4.0-11.0) Red Blood Count 4.30 x10^6/uL (4.30-5.70) 4.01 x10^6/uL (4.30-5.70) Hemoglobin 13.4 g/dL (13.0-17.5) 12.5 g/dL (13.0-17.5) Hematocrit 37.8 % (39.0-53.0) 35.2 % (39.0-53.0) Mean Corpuscular Volume 88 fL (79-100) 88 fL (79-100) Mean Corpuscular Hemoglobin 31 pg (25-35) 31 pg (25-35) Mean Corpuscular Hemoglobin Concent 36 g/dL (31-37) 36 g/dL (31-37) Red Cell Distribution Width 12.9 % (11.5-14.5) 13.4 % (11.5-14.5) Platelet Count 118 x10^3/uL (140-400) 149 x10^3/uL (140-400) Prothrombin Time 16.2 SEC (11.7-14.0) Prothromb Time International Ratio 1.3 (0.8-1.1) Activated Partial Thromboplast Time 25 SEC (24-38) Sodium Level 145 mmol/L (136-145) 144 mmol/L (136-145) Potassium Level 4.0 mmol/L (3.5-5.1) 4.5 mmol/L (3.5-5.1) Chloride Level 111 mmol/L (98-107) 110 mmol/L (98-107) Carbon Dioxide Level 24 mmol/L (21-32) 24 mmol/L (21-32) Anion Gap 10 (6-14) 10 (6-14) Blood Urea Nitrogen 11 mg/dL (8-26) 13 mg/dL (8-26) Creatinine 1.2 mg/dL (0.7-1.3) 1.3 mg/dL (0.7-1.3) Estimated GFR (Cockcroft-Gault) 61.6 56.1 Glucose Level 131 mg/dL (70-99) 274 mg/dL (70-99) Calcium Level 9.0 mg/dL (8.5-10.1) 8.8 mg/dL (8.5-10.1) Magnesium Level 2.2 mg/dL (1.8-2.4) 1.9 mg/dL (1.8-2.4) O2 Saturation 97 % (92-99) Arterial Blood pH 7.38 (7.35-7.45) Arterial Blood pH (Temp corrected) 7.36 Arterial Blood pCO2 at Patient Temp 42 mmHg (35-46) Arterial Blood pCO2 (Temp correct) 45 mmHg Arterial Blood pO2 at Patient Temp 99 mmHg (65-108) Arterial Blood pO2 (Temp corrected) 107 mmHg Arterial Blood HCO3 25 mmol/L (21-28) Arterial Blood Base Excess -1 mmol/L (-3-3) BUN/Creatinine Ratio 10 (6-20) Total Bilirubin 1.0 mg/dL (0.2-1.0) Aspartate Amino Transf (AST/SGOT) 57 U/L (15-37) Alanine Aminotransferase (ALT/SGPT) 28 U/L (16-63) Alkaline Phosphatase 47 U/L (46-116) Total Protein 5.1 g/dL (6.4-8.2) Albumin 3.6 g/dL (3.4-5.0) Albumin/Globulin Ratio 2.4 (1.0-1.7) Test 10/21/18 17:36 10/21/18 21:05 10/22/18 02:05 10/22/18 05:45 Glucose (Fingerstick) 225 mg/dL (70-99) 291 mg/dL (70-99) 285 mg/dL (70-99) White Blood Count 11.4 x10^3/uL (4.0-11.0) Red Blood Count 3.76 x10^6/uL (4.30-5.70) Hemoglobin 11.7 g/dL (13.0-17.5) Hematocrit 33.2 % (39.0-53.0) Mean Corpuscular Volume 88 fL (79-100) Mean Corpuscular Hemoglobin 31 pg (25-35) Mean Corpuscular Hemoglobin Concent 35 g/dL (31-37) Red Cell Distribution Width 13.2 % (11.5-14.5) Platelet Count 134 x10^3/uL (140-400) Sodium Level 139 mmol/L (136-145) Potassium Level 4.8 mmol/L (3.5-5.1) Chloride Level 105 mmol/L (98-107) Carbon Dioxide Level 23 mmol/L (21-32) Anion Gap 11 (6-14) Blood Urea Nitrogen 13 mg/dL (8-26) Creatinine 1.4 mg/dL (0.7-1.3) Estimated GFR (Cockcroft-Gault) 51.5 Glucose Level 217 mg/dL (70-99) Calcium Level 8.8 mg/dL (8.5-10.1) Magnesium Level 2.0 mg/dL (1.8-2.4) Test 10/22/18 12:45 White Blood Count 11.7 x10^3/uL (4.0-11.0) Red Blood Count 3.78 x10^6/uL (4.30-5.70) Hemoglobin 11.8 g/dL (13.0-17.5) Hematocrit 33.0 % (39.0-53.0) Mean Corpuscular Volume 88 fL (79-100) Mean Corpuscular Hemoglobin 31 pg (25-35) Mean Corpuscular Hemoglobin Concent 36 g/dL (31-37) Red Cell Distribution Width 13.2 % (11.5-14.5) Platelet Count 132 x10^3/uL (140-400) Laboratory Tests Test 10/21/18 16:39 10/21/18 17:35 10/21/18 17:36 10/21/18 21:05 O2 Saturation 97 % (92-99) Arterial Blood pH 7.38 (7.35-7.45) Arterial Blood pH (Temp corrected) 7.36 Arterial Blood pCO2 at Patient Temp 42 mmHg (35-46) Arterial Blood pCO2 (Temp correct) 45 mmHg Arterial Blood pO2 at Patient Temp 99 mmHg (65-108) Arterial Blood pO2 (Temp corrected) 107 mmHg Arterial Blood HCO3 25 mmol/L (21-28) Arterial Blood Base Excess -1 mmol/L (-3-3) White Blood Count 12.2 x10^3/uL (4.0-11.0) Red Blood Count 4.01 x10^6/uL (4.30-5.70) Hemoglobin 12.5 g/dL (13.0-17.5) Hematocrit 35.2 % (39.0-53.0) Mean Corpuscular Volume 88 fL (79-100) Mean Corpuscular Hemoglobin 31 pg (25-35) Mean Corpuscular Hemoglobin Concent 36 g/dL (31-37) Red Cell Distribution Width 13.4 % (11.5-14.5) Platelet Count 149 x10^3/uL (140-400) Sodium Level 144 mmol/L (136-145) Potassium Level 4.5 mmol/L (3.5-5.1) Chloride Level 110 mmol/L (98-107) Carbon Dioxide Level 24 mmol/L (21-32) Anion Gap 10 (6-14) Blood Urea Nitrogen 13 mg/dL (8-26) Creatinine 1.3 mg/dL (0.7-1.3) Estimated GFR (Cockcroft-Gault) 56.1 BUN/Creatinine Ratio 10 (6-20) Glucose Level 274 mg/dL (70-99) Calcium Level 8.8 mg/dL (8.5-10.1) Magnesium Level 1.9 mg/dL (1.8-2.4) Total Bilirubin 1.0 mg/dL (0.2-1.0) Aspartate Amino Transf (AST/SGOT) 57 U/L (15-37) Alanine Aminotransferase (ALT/SGPT) 28 U/L (16-63) Alkaline Phosphatase 47 U/L (46-116) Total Protein 5.1 g/dL (6.4-8.2) Albumin 3.6 g/dL (3.4-5.0) Albumin/Globulin Ratio 2.4 (1.0-1.7) Glucose (Fingerstick) 225 mg/dL (70-99) 291 mg/dL (70-99) Test 10/22/18 02:05 10/22/18 05:45 10/22/18 12:45 Glucose (Fingerstick) 285 mg/dL (70-99) White Blood Count 11.4 x10^3/uL (4.0-11.0) 11.7 x10^3/uL (4.0-11.0) Red Blood Count 3.76 x10^6/uL (4.30-5.70) 3.78 x10^6/uL (4.30-5.70) Hemoglobin 11.7 g/dL (13.0-17.5) 11.8 g/dL (13.0-17.5) Hematocrit 33.2 % (39.0-53.0) 33.0 % (39.0-53.0) Mean Corpuscular Volume 88 fL (79-100) 88 fL (79-100) Mean Corpuscular Hemoglobin 31 pg (25-35) 31 pg (25-35) Mean Corpuscular Hemoglobin Concent 35 g/dL (31-37) 36 g/dL (31-37) Red Cell Distribution Width 13.2 % (11.5-14.5) 13.2 % (11.5-14.5) Platelet Count 134 x10^3/uL (140-400) 132 x10^3/uL (140-400) Sodium Level 139 mmol/L (136-145) Potassium Level 4.8 mmol/L (3.5-5.1) Chloride Level 105 mmol/L (98-107) Carbon Dioxide Level 23 mmol/L (21-32) Anion Gap 11 (6-14) Blood Urea Nitrogen 13 mg/dL (8-26) Creatinine 1.4 mg/dL (0.7-1.3) Estimated GFR (Cockcroft-Gault) 51.5 Glucose Level 217 mg/dL (70-99) Calcium Level 8.8 mg/dL (8.5-10.1) Magnesium Level 2.0 mg/dL (1.8-2.4) Medications Current Medications Aspirin (Miri Aspirin) 325 mg 1X ONCE PO Last administered on 10/17/18at 19:02; Start 10/17/18 at 18:30; Stop 10/17/18 at 19:02; Status DC Enoxaparin Sodium (Lovenox 100mg Syringe) 90 mg 1X ONCE SQ Last administered on 10/17/18at 19:51; Start 10/17/18 at 19:15; Stop 10/17/18 at 19:23; Status DC Ondansetron HCl (Zofran) 4 mg PRN Q6HRS PRN IV NAUSEA/VOMITING; Start 10/17/18 at 20:45; Stop 10/21/18 at 13:24; Status DC Acetaminophen (Tylenol) 500 mg PRN Q6HRS PRN PO MILD PAIN / TEMP; Start 10/17/18 at 20:45; Stop 10/22/18 at 09:08; Status DC Acetaminophen/ Codeine Phosphate (Tylenol #3) 1 tab PRN Q6HRS PRN PO MODERATE PAIN Last administered on 10/18/18at 11:26; Start 10/17/18 at 20:45 Zolpidem Tartrate (Ambien) 5 mg PRN QHS PRN PO INSOMNIA Last administered on 10/18/18at 22:19; Start 10/17/18 at 20:45; Stop 10/19/18 at 08:30; Status DC Labetalol HCl (Normodyne Iv Push) 20 mg PRN Q2HR PRN IVP HYPERTENSION; Start 10/17/18 at 20:45 Sodium Chloride 1,000 ml @ 100 mls/hr 1X ONCE IV Last administered on 10/17/18at 23:32; Start 10/17/18 at 20:45; Stop 10/18/18 at 06:44; Status DC Iodixanol (Visipaque 320) 100 ml STK-MED ONCE .ROUTE ; Start 10/18/18 at 09:17; Stop 10/18/18 at 09:17; Status DC Lidocaine HCl (Lidocaine 1% 20ml Vial) 20 ml STK-MED ONCE .ROUTE ; Start 10/18/18 at 09:17; Stop 10/18/18 at 09:17; Status DC Heparin Sodium/ Sodium Chloride 1,000 ml @ As Directed STK-MED ONCE .ROUTE ; Start 10/18/18 at 09:17; Stop 10/18/18 at 09:17; Status DC Fentanyl Citrate (Fentanyl 2ml Vial) 100 mcg STK-MED ONCE .ROUTE ; Start at 09:24; Stop 10/18/18 at 09:24; Status DC Midazolam HCl (Versed) 5 mg STK-MED ONCE .ROUTE ; Start 10/18/18 at 09:24; Stop 10/18/18 at 09:24; Status DC Heparin Sodium (Porcine) (Heparin Sodium) 10,000 unit STK-MED ONCE .ROUTE ; Start 10/18/18 at 09:26; Stop 10/18/18 at 09:26; Status DC Verapamil HCl (Verapamil) 5 mg STK-MED ONCE .ROUTE ; Start 10/18/18 at 09:26; Stop 10/18/18 at 09:26; Status DC Nitroglycerin (Nitroglycerin) 200 mcg STK-MED ONCE .ROUTE ; Start 10/18/18 at 09:26; Stop 10/18/18 at 09:26; Status DC Iodixanol (Visipaque 320) 100 ml STK-MED ONCE .ROUTE ; Start 10/18/18 at 09:53; Stop 10/18/18 at 09:53; Status DC Nitroglycerin (Nitroglycerin) 200 mcg 1X ONCE IART Last administered on 10/18/18at 10:50; Start 10/18/18 at 10:15; Stop 10/18/18 at 10:21; Status DC Verapamil HCl (Verapamil) 2.5 mg 1X ONCE IART Last administered on 10/18/18at 10:50; Start 10/18/18 at 10:15; Stop 10/18/18 at 10:21; Status DC Heparin Sodium (Porcine) (Heparin Sodium) 2,500 unit 1X ONCE IART Last administered on 10/18/18at 10:50; Start 10/18/18 at 10:15; Stop 10/18/18 at 10:21; Status DC Heparin Sodium/ Sodium Chloride (HEPARIN for ARTERIAL LINE FLUSH) 1,000 unit 1X ONCE IART Last administered on 10/18/18at 10:50; Start 10/18/18 at 10:15; Stop 10/18/18 at 10:21; Status DC Heparin Sodium/ Sodium Chloride (HEPARIN for ARTERIAL LINE FLUSH) 1,000 unit 1X ONCE IART Last administered on 10/18/18at 10:50; Start 10/18/18 at 10:15; Stop 10/18/18 at 10:21; Status DC Midazolam HCl (Versed) 5 mg 1X ONCE IV Last administered on 10/18/18at 10:50; Start 10/18/18 at 10:15; Stop 10/18/18 at 10:21; Status DC Fentanyl Citrate (Fentanyl 2ml Vial) 100 mcg 1X ONCE IV Last administered on 10/18/18at 10:50; Start 10/18/18 at 10:15; Stop 10/18/18 at 10:21; Status DC Lidocaine HCl (Lidocaine 1% 20ml Vial) 20 ml 1X ONCE INJ Last administered on 10/18/18at 10:50; Start 10/18/18 at 10:15; Stop 10/18/18 at 10:21; Status DC Iodixanol (Visipaque 320) 100 ml 1X ONCE IART Last administered on 10/18/18at 10:50; Start 10/18/18 at 10:15; Stop 10/18/18 at 10:21; Status DC Info (CONTRAST GIVEN -- Rx MONITORING) 1 each PRN DAILY PRN MC SEE COMMENTS; Start 10/18/18 at 10:30; Stop 10/20/18 at 10:29; Status DC Sodium Chloride (Normal Saline Flush) 3 ml QSHIFT PRN IV AFTER MEDS AND BLOOD DRAWS; Start 10/18/18 at 11:00; Stop 10/22/18 at 09:07; Status DC Sodium Chloride 1,000 ml @ 75 mls/hr [id number] IV Last administered on 10/18/18at 11:20; Start 10/18/18 at 11:30; Stop 10/18/18 at 11:31; Status DC Nitroglycerin (Nitrostat) 0.4 mg PRN Q5MIN PRN SL CHEST PAIN; Start 10/18/18 at 11:00 Metoprolol Tartrate (Lopressor) 12.5 mg BID PO Last administered on 10/18/18at 11:26; Start 10/18/18 at 11:00; Stop 10/18/18 at 15:10; Status DC Atorvastatin Calcium (Lipitor) 20 mg QHS PO ; Start 10/18/18 at 21:00; Stop 10/18/18 at 15:07; Status DC Heparin Sodium/ Dextrose 500 ml @ 0 mls/hr CONT PRN PRN IV SEE PROTOCOL Last administered on 10/21/18at 06:00; Start 10/18/18 at 11:00; Stop 10/22/18 at 11:36; Status DC Heparin Sodium (Porcine) (Heparin Sodium) 2,300 unit PRN Q6HRS PRN IV FOR UFH LEVEL LESS THAN 0.2; Start 10/18/18 at 11:00; Stop 10/22/18 at 11:36; Status DC Cefazolin Sodium/ Dextrose 50 ml @ 100 mls/hr 1X PREOP PRN IV PRIOR TO PROCEDURE; Start 10/19/18 at 06:00; Stop 10/19/18 at 14:00; Status DC Atorvastatin Calcium (Lipitor) 40 mg QHS PO Last administered on 10/21/18 21:00; Start 10/18/18 at 21:00 Metoprolol Tartrate (Lopressor) 25 mg BID PO Last administered on 10/20/18 20:37; Start 10/18/18 at 21:00; Stop 10/21/18 at 13:27; Status DC Aspirin (Ecotrin) 81 mg [id number] PO Last administered on 10/20/18 08:54; Start 10/18/18 at 15:15; Stop 10/21/18 at 13:26; Status DC Acetaminophen/ Hydrocodone Bitart (Lortab 7.5/325) 1 tab PRN Q6HRS PRN PO PAIN SEVERE Last administered on 10/18/18 16:49; Start 10/18/18 at 16:15 Alprazolam (Xanax) 0.5 mg Q6HRS PRN PO ANXIETY / AGITATION Last administered on 10/20/18 18:46; Start 10/18/18 at 19:15 Morphine Sulfate (Morphine Sulfate) 2 mg PRN Q2HR PRN IV PAIN Last administered on 10/20/18 18:46; Start 10/18/18 at 20:00; Stop 10/22/18 at 09:09; Status DC Zolpidem Tartrate (Ambien) 5 mg PRN QHS PRN PO INSOMNIA Last administered on 10/21/18 21:00; Start 10/19/18 at 08:30 Metformin HCl (Glucophage) 500 mg BIDWMEALS PO ; Start 10/19/18 at 17:00; Stop 10/20/18 at 08:55; Status DC Glyburide (Diabeta) 1.25 mg BIDWMEALS PO Last administered on 10/20/18 08:54; Start 10/19/18 at 17:00; Stop 10/20/18 at 08:55; Status DC Insulin Human Lispro (HumaLOG) 0-9 UNITS TIDWMEALS SQ Last administered on 10/22/18at 12:37; Start 10/19/18 at 12:00 Dextrose (Dextrose 50%-Water Syringe) 12.5 gm PRN Q15MIN PRN IV SEE COMMENTS; Start 10/19/18 at 11:30; Stop 10/22/18 at 09:09; Status DC Dextrose 250 ml PRN Q15MIN PRN IV SEE COMMENTS; Start 10/19/18 at 11:30; Status UNV Nitroglycerin (Nitro-Bid Oint) 0.5 inch Q6HRS TP ; Start 10/19/18 at 18:00 Info (Anti-Coagulation Monitoring By Pharmacy) 1 each PRN DAILY PRN MC SEE COMMENTS Last administered on 10/20/18at 15:10; Start 10/19/18 at 13:45; Stop 10/22/18 at 11:36; Status DC Docusate Sodium (Colace) 100 mg BID PO Last administered on 10/22/18at 08:10; Start 10/19/18 at 21:00 Polyethylene Glycol (miraLAX PACKET) 17 gm DAILY PO Last administered on 10/22/18at 08:10; Start 10/19/18 at 17:00 Magnesium Hydroxide (Milk Of Magnesia) 2,400 mg PRN DAILY PRN PO CONSTIPATION; Start 10/19/18 at 17:00 Magnesium Hydroxide (Milk Of Magnesia) 2,400 mg 1X ONCE PO Last administered on 10/19/18at 17:52; Start 10/19/18 at 17:00; Stop 10/19/18 at 17:02; Status DC Nitroglycerin/ Dextrose 250 ml @ 1.5 mls/hr CONT PRN IV SEE I/O RECORD Last administered on 10/19/18at 18:37; Start 10/19/18 at 18:30; Stop 10/22/18 at 09:09; Status DC Glyburide (Diabeta) 2.5 mg BIDWMEALS PO ; Start 10/20/18 at 09:00; Stop 10/20/18 at 09:10; Status DC Glyburide (Diabeta) 2.5 mg BIDWMEALS PO Last administered on 10/22/18at 09:33; Start 10/20/18 at 17:00 Glyburide (Diabeta) 1.25 mg 1X ONCE PO Last administered on 10/20/18at 09:26; Start 10/20/18 at 09:30; Stop 10/20/18 at 09:31; Status DC Heparin Sodium (Porcine) 14104 unit/Ringer's Solution 1,020 ml @ 1,020 mls/hr 1X PERIOP@0600 ONCE IRR Last administered on 10/21/18at 10:24; Start 10/21/18 at 06:00; Stop 10/21/18 at 06:59; Status DC Potassium Chloride 70 meq/ Sodium Bicarbonate 12.5 meq/Lidocaine HCl 24 ml/Parenteral Electrolytes 571.5 ml @ 571.5 mls/ hr 1X PERIOP@0600 ONCE IRR ; Start 10/21/18 at 06:00; Stop 10/21/18 at 06:59; Status DC Potassium Chloride 15 meq/ Sodium Bicarbonate 12.5 meq/Parenteral Electrolytes 520 ml @ 520 mls/hr 1X PERIOP@0600 ONCE IRR ; Start 10/21/18 at 06:00; Stop 10/21/18 at 06:59; Status DC Cefazolin Sodium 1 gm/Sodium Chloride 500 ml @ 500 mls/hr 1X ONCE IRR Last administered on 10/21/18at 10:24; Start 10/21/18 at 06:00; Stop 10/21/18 at 06:59; Status DC Calcium Carbonate/ Glycine (Tums) 500 mg PRN Q3HRS PRN PO INDIGESTION Last administered on 10/20/18at 20:37; Start 10/20/18 at 20:15 Phenylephrine HCl (PHENYLEPHRINE in 0.9% NACL PF) 1 mg STK-MED ONCE IV ; Start 10/21/18 at 06:28; Stop 10/21/18 at 06:28; Status DC Etomidate (Amidate) 20 mg STK-MED ONCE IV ; Start 10/21/18 at 06:28; Stop 10/21/18 at 06:28; Status DC Aminocaproic Acid (Amicar) 5,000 mg STK-MED ONCE IV ; Start 10/21/18 at 06:28; Stop 10/21/18 at 06:28; Status DC Nitroglycerin/ Dextrose 0 ml @ As Directed STK-MED ONCE IV ; Start 10/21/18 at 06:28; Stop 10/21/18 at 06:28; Status DC Rocuronium [place] (Zemuron) 100 mg STK-MED ONCE .ROUTE ; Start 10/21/18 at 06:28; Stop 10/21/18 at 06:28; Status DC Heparin Sodium (Porcine) 30,000 unit STK-MED ONCE .ROUTE ; Start 10/21/18 at 06 :29; Stop 10/21/18 at 06:29; Status DC Ondansetron HCl (Zofran) 4 mg PRN Q6HRS PRN IV NAUSEA/VOMITING; Start 10/21/18 at 06:30; Stop 10/22/18 at 06:29; Status DC Fentanyl Citrate (Fentanyl 2ml Vial) 25 mcg PRN Q5MIN PRN IV MILD PAIN 1-3; Start 10/21/18 at 06:30; Stop 10/22/18 at 06:29; Status DC Fentanyl Citrate (Fentanyl 2ml Vial) 50 mcg PRN Q5MIN PRN IV MODERATE TO SEVERE PAIN; Start 10/21/18 at 06:30; Stop 10/22/18 at 06:29; Status DC Morphine Sulfate (Morphine Sulfate) 1 mg PRN Q10MIN PRN IV SEVERE PAIN 7-10; Start 10/21/18 at 06:30; Stop 10/22/18 at 06:29; Status DC Ringer's Solution 1,000 ml @ 30 mls/hr Q24H IV ; Start 10/21/18 at 06:30; Stop 10/21/18 at 18:29; Status DC Hydromorphone HCl (Dilaudid) 0.5 mg PRN Q10MIN PRN IV SEV PAIN, Second choice; Start 10/21/18 at 06:30; Stop 10/22/18 at 06:29; Status DC Prochlorperazine Edisylate (Compazine) 5 mg PACU PRN PRN IV NAUSEA, MRX1; Start 10/21/18 at 06:30; Stop 10/22/18 at 06:29; Status DC Nitroglycerin/ Dextrose 250 ml @ As Directed STK-MED ONCE IV ; Start 10/21/18 at 06:42; Stop 10/21/18 at 06:43; Status DC Sufentanil Citrate (Sufenta) 250 mcg STK-MED ONCE .ROUTE ; Start 10/21/18 at 06:45; Stop 10/21/18 at 06:46; Status DC Midazolam HCl (Versed) 2 mg STK-MED ONCE .ROUTE ; Start 10/21/18 at 06:45; Stop 10/21/18 at 06:46; Status DC Vancomycin HCl (VANCO for OR ONLY) 10 gm STK-MED ONCE .ROUTE Last administered on 10/21/18at 10:19; Start 10/21/18 at 06:58; Stop 10/21/18 at 06:59; Status DC Cellulose (Surgicel Hemostat 4x8) 1 each STK-MED ONCE .ROUTE Last administered on 10/21/18at 10:19; Start 10/21/18 at 06:59; Stop 10/21/18 at 06:59; Status DC Papaverine HCl 60 mg STK-MED ONCE .ROUTE Last administered on 10/21/18at 10:24; Start 10/21/18 at 06:59; Stop 10/21/18 at 06:59; Status DC Sodium Chloride (SODIUM CHLORIDE 20ml) 20 ml STK-MED ONCE IJ Last administered on 10/21/18at 10:19; Start 10/21/18 at 06:59; Stop 10/21/18 at 06:59; Status DC Sodium Chloride (SODIUM CHLORIDE 20ml) 20 ml STK-MED ONCE IJ Last administered on 10/21/18at 10:19; Start 10/21/18 at 06:59; Stop 10/21/18 at 07:00; Status DC Sodium Chloride (SODIUM CHLORIDE 20ml) 20 ml STK-MED ONCE IJ Last administered on 10/21/18at 10:19; Start 10/21/18 at 06:59; Stop 10/21/18 at 07:00; Status DC Insulin Human Regular 150 unit/ Sodium Chloride 151.5 ml @ 9.292 mls/ hr CONT PRN IV SEE I/O RECORD; Start 10/21/18 at 07:15; Stop 10/22/18 at 09:09; Status DC Aspirin (Aspirin Rectal Supp) 300 mg 1X ONCE [place] Last administered on 10/21/18at 13:12; Start 10/21/18 at 07:30; Stop 10/21/18 at 07:31; Status DC Cefazolin Sodium/ Dextrose 50 ml @ 100 mls/hr 1X PREOP PRN IV PRIOR TO PROCEDURE; Start 10/22/18 at 06:00; Stop 10/22/18 at 18:00 Heparin Sodium (Porcine) (Heparin Sodium) 10,000 unit STK-MED ONCE .ROUTE ; Start 10/21/18 at 09:06; Stop 10/21/18 at 09:06; Status DC Rocuronium [place] (Zemuron) 50 mg STK-MED ONCE .ROUTE ; Start 10/21/18 at 09:39; Stop 10/21/18 at 09:39; Status DC Cefazolin Sodium (Ancef) 1 gm STK-MED ONCE .ROUTE ; Start 10/21/18 at 09:40; Stop 10/21/18 at 09:41; Status DC Cefazolin Sodium (Ancef) 1 gm STK-MED ONCE .ROUTE ; Start 10/21/18 at 09:40; Stop 10/21/18 at 09:41; Status DC Insulin Glargine (Lantus Syringe) 15 unit QHS SQ Last administered on 10/21/18at 21:11; Start 10/21/18 at 21:00 Midazolam HCl (Versed) 2 mg STK-MED ONCE .ROUTE ; Start 10/21/18 at 10:12; Stop 10/21/18 at 10:12; Status DC Albumin Human 500 ml @ As Directed STK-MED ONCE IV ; Start 10/21/18 at 12:03; Stop 10/21/18 at 12:03; Status DC Lidocaine HCl (Lidocaine Pf 2% Vial) 5 ml STK-MED ONCE .ROUTE ; Start 10/21/18 at 12:08; Stop 10/21/18 at 12:08; Status DC Magnesium Sulfate 5 gm STK-MED ONCE .ROUTE ; Start 10/21/18 at 12:08; Stop 10/21/18 at 12:08; Status DC Heparin Sodium (Porcine) 30,000 unit STK-MED ONCE .ROUTE ; Start 10/21/18 at 12:08; Stop 10/21/18 at 12:08; Status DC Mannitol (Mannitol) 12.5 g STK-MED ONCE .ROUTE ; Start 10/21/18 at 12:08; Stop 10/21/18 at 12:08; Status DC Albumin Human 100 ml @ As Directed STK-MED ONCE IV ; Start 10/21/18 at 12:08; Stop 10/21/18 at 12:08; Status DC Calcium Chloride (Calcium Chloride) 1,000 mg STK-MED ONCE .ROUTE ; Start 10/21/18 at 12:08; Stop 10/21/18 at 12:08; Status DC Rocuronium [place] (Zemuron) 50 mg STK-MED ONCE .ROUTE ; Start 10/21/18 at 12:47; Stop 10/21/18 at 12:47; Status DC Fentanyl Citrate (Fentanyl 2ml Vial) 100 mcg STK-MED ONCE .ROUTE ; Start 10/21/18 at 13:00; Stop 10/21/18 at 13:00; Status DC Sodium Chloride (Normal Saline Flush) 3 ml PRN Q12HR PRN IV AFTER MEDS AND BLOOD DRAWS; Start 10/21/18 at 13:15 Ringer's Solution 1,000 ml @ 30 mls/hr Q24H IV Last administered on 10/22/18at 13:13; Start 10/21/18 at 13:12 Albumin Human 250 ml @ 500 mls/hr PRN Q4HRS PRN IV SEE COMMENTS Last administered on 10/21/18at 18:29; Start 10/21/18 at 13:15 Insulin Human Regular 150 unit/ Sodium Chloride 151.5 ml @ 0 mls/hr CONT PRN PRN IV PER PROTOCOL Last administered on 10/22/18at 02:29; Start 10/21/18 at 13:15 Dextrose (Dextrose 50%-Water Syringe) 25 gm PRN Q15MIN PRN IV LOW BLOOD SUGAR; Start 10/21/18 at 13:15 Nitroglycerin/ Dextrose 250 ml @ 0 mls/hr CONT PRN PRN IV POST CV SURGERY; Start 10/21/18 at 13:15 Phenylephrine HCl 20 mg/Sodium Chloride 252 ml @ 0 mls/hr CONT PRN PRN IV HYPO TENSION; Start 10/21/18 at 13:15 Amiodarone HCl 150 mg/Dextrose 103 ml @ 600 mls/hr 1X ONCE IV Last administered on 10/21/18at 15:59; Start 10/21/18 at 13:15; Stop 10/21/18 at 13:29; Status DC Amiodarone HCl 150 mg/Dextrose 103 ml @ 200 mls/hr 1X PRN PRN IV FOR AFIB; Start 10/21/18 at 13:15 Amiodarone HCl 900 mg/Dextrose 518 ml @ 0 mls/hr CONT PRN PRN IV AFIB Last administered on 10/21/18at 15:59; Start 10/21/18 at 13:15 Info (KCl Per Protocol) 1 ea CONT PRN PRN MC SEE COMMENTS; Start 10/21/18 at 13:15 Magnesium Sulfate/ Dextrose 100 ml @ 100 mls/hr PRN DAILY PRN IV FOR MAG < 2.2; Start 10/21/18 at 13:15 Famotidine (Pepcid Vial) 20 mg BID IVP Last administered on 10/22/18at 08:10; Start 10/21/18 at 21:00 Ondansetron HCl (Zofran) 4 mg PRN Q4HRS PRN IV NAUSEA/VOMITING, 1st CHOICE; Start 10/21/18 at 13:15 Prochlorperazine Edisylate (Compazine) 10 mg PRN Q6HRS PRN IV NAUSEA/VOMITING, 2nd CHOICE; Start 10/21/18 at 13:15 Metoclopramide HCl (Reglan Vial) 10 mg PRN Q6HRS PRN IV NAUSEA/VOMITING, 3rd CHOICE; Start 10/21/18 at 13:15 Morphine Sulfate (Morphine Sulfate) 2 mg PRN Q1HR PRN IV MODERATE PAIN Last administered on 10/22/18at 12:40; Start 10/21/18 at 13:15 Morphine Sulfate (Morphine Sulfate) 4 mg PRN Q1HR PRN IV SEVERE PAIN Last administered on 10/22/18at 09:33; Start 10/21/18 at 13:15 Acetaminophen (Tylenol) 650 mg PRN Q4HRS PRN PO TEMP > 101'F or MILD PAIN Last administered on 10/21/18at 16:29; Start 10/21/18 at 13:15 Acetaminophen (Tylenol Supp) 650 mg PRN Q4HRS PRN NH TEMP > 101'F or MILD PAIN; Start 10/21/18 at 13:15 Meperidine HCl (Demerol) 12.5 mg PRN Q15MIN PRN IV SHIVERING; Start 10/21/18 at 13:15 Senna/Docusate Sodium (Senna Plus) 1 tab BID PO Last administered on 10/22/18at 08:10; Start 10/21/18 at 21:00 Bisacodyl (Dulcolax Supp) 10 mg PRN DAILY PRN NH NO BOWEL MOVEMENT; Start 10/21/18 at 13:15 Chlorhexidine Gluconate (Peridex) 15 ml BID MM ; Start 10/22/18 at 09:00 Aspirin (Ecotrin) 325 mg DAILYWBKFT PO Last administered on 10/22/18at 08:10; Start 10/22/18 at 08:00 Aspirin (Aspirin Rectal Supp) 300 mg PRN DAILY PRN NH IF UNABLE TO TAKE PO; Start 10/22/18 at 08:00 Albuterol Sulfate (Ventolin Neb Soln) 2.5 mg PRN Q4HRS PRN NEB SHORTNESS OF BREATH; Start 10/21/18 at 13:15 Metoprolol Tartrate (Lopressor) 25 mg BID PO ; Start 10/22/18 at 09:00 Nicardipine HCl 50 mg/Sodium Chloride 250 ml @ 0 mls/hr CONT PRN PRN IV PER PROTOCOL; Start 10/21/18 at 13:15 Oxycodone HCl (Roxicodone) 5 mg PRN Q4HRS PRN PO MILD TO MODERATE PAIN Last administered on 10/22/18at 14:26; Start 10/21/18 at 13:15 Oxycodone HCl (Roxicodone) 10 mg PRN Q4HRS PRN PO SEVERE PAIN Last administered on 10/22/18at 03:18; Start 10/21/18 at 13:15 Dextrose 250 ml PRN Q15MIN PRN IV LOW BLOOD SUGAR; Start 10/21/18 at 13:15 Cefazolin Sodium/ Dextrose 50 ml @ 100 mls/hr Q8H IV Last administered on at 09:33; Start 10/21/18 at 16:30; Stop 10/23/18 at 00:59 Sodium Bicarbonate (Sodium Bicarb Adult 8.4% Syr) 50 meq 1X ONCE IV Last administered on 10/21/18at 15:59; Start 10/21/18 at 15:00; Stop 10/21/18 at 15:07; Status DC Potassium Chloride/Water 50 ml @ 50 mls/hr 1X ONCE IV ; Start 10/21/18 at 18:00; Stop 10/21/18 at 18:39; Status DC Amiodarone HCl (Cordarone) 200 mg BID PO Last administered on 10/22/18at 14:26; Start 10/22/18 at 14:00 Vitals/I & O Vital Sign - Last 24 Hours 10/21/18 10/21/18 10/21/18 8/31/19 15:59 16:00 16:00 17:00 Temp 100.2 100.2 Pulse 95 105 98 98 Resp 18 18 B/P (MAP) 109/57 120/66 (84) 119/64 (82) 85/51 (62) Pulse Ox 100 100 O2 Delivery Ventilator Ventilator 10/21/18 10/21/18 10/21/18 10/21/18 17:00 17:14 17:52 18:00 Pulse 99 94 Resp 20 20 B/P (MAP) 82/48 (59) 90/55 (67) Pulse Ox 100 100 O2 Delivery Nasal Cannula Nasal Cannula O2 Flow Rate 3.0 3.0 10/21/18 10/21/18 10/21/18 10/21/18 18:00 19:00 19:00 19:11 Pulse 95 94 Resp 16 16 16 B/P (MAP) 90/55 (67) 78/64 (69) Pulse Ox 100 100 99 O2 Delivery Nasal Cannula Nasal Cannula Nasal Cannula O2 Flow Rate 3.0 3.0 3.0 10/21/18 10/21/18 10/21/18 10/21/18 20:00 20:00 20:00 20:14 Temp 100.4 100.4 Pulse 88 Resp 16 16 B/P (MAP) 75/67 (70) Pulse Ox 100 100 O2 Delivery Nasal Cannula Nasal Cannula Nasal Cannula O2 Flow Rate 2.0 2.0 2.0 10/21/18 10/21/18 10/21/18 10/21/18 21:00 21:00 21:00 21:32 Temp 99.7 99.7 Pulse 86 Resp 16 18 14 B/P (MAP) 99/58 (72) Pulse Ox 100 100 100 O2 Delivery Nasal Cannula Nasal Cannula Nasal Cannula O2 Flow Rate 2.0 2.0 2.0 10/21/18 10/21/18 10/21/18 10/21/18 22:00 22:00 23:00 23:00 Temp 99.4 99.2 99.4 99.2 Pulse 79 77 Resp 18 14 B/P (MAP) 90/51 (64) 118/79 (92) Pulse Ox 100 100 O2 Delivery Nasal Cannula Nasal Cannula O2 Flow Rate 2.0 2.0 10/21/18 10/22/18 10/22/18 10/22/18 23:08 00:00 00:00 00:00 Temp 98.6 98.6 Pulse 76 Resp 20 18 B/P (MAP) 112/70 (84) Pulse Ox 100 100 O2 Delivery Nasal Cannula Nasal Cannula Nasal Cannula O2 Flow Rate 2.0 2.0 2.0 10/22/18 10/22/18 10/22/18 10/22/18 00:13 00:36 01:00 01:00 Temp 98.8 98.8 Pulse 74 Resp 18 14 18 B/P (MAP) 101/70 (80) Pulse Ox 100 100 100 O2 Delivery Nasal Cannula Nasal Cannula Nasal Cannula O2 Flow Rate 2.0 2.0 2.0 10/22/18 10/22/18 10/22/18 10/22/18 01:09 02:00 02:00 03:00 Temp 98.4 98.4 Pulse 76 Resp 14 20 B/P (MAP) 112/89 (97) Pulse Ox 100 100 O2 Delivery Nasal Cannula Nasal Cannula O2 Flow Rate 2.0 2.0 10/22/18 10/22/18 10/22/18 10/22/18 03:00 03:18 04:00 04:00 Temp 98.1 97.9 98.1 97.9 Pulse 72 71 Resp 14 18 15 B/P (MAP) 116/85 (95) 110/74 (86) Pulse Ox 100 100 100 O2 Delivery Nasal Cannula Nasal Cannula Nasal Cannula O2 Flow Rate 2.0 2.0 2.0 10/22/18 10/22/18 10/22/18 10/22/18 04:00 04:31 05:00 05:00 Temp 98.0 98.0 Pulse 70 Resp 14 16 B/P (MAP) 90/78 (82) Pulse Ox 100 100 O2 Delivery Nasal Cannula Nasal Cannula Nasal Cannula O2 Flow Rate 2.0 2.0 2.0 10/22/18 10/22/18 10/22/18 10/22/18 06:00 07:00 08:00 08:00 Temp 98.2 98.2 98.2 98.2 Pulse 71 75 79 Resp 18 18 20 B/P (MAP) 125/66 (85) 109/55 (73) 150/75 (100) Pulse Ox 100 100 100 O2 Delivery Nasal Cannula Nasal Cannula Nasal Cannula Nasal Cannula O2 Flow Rate 2.0 2.0 2.0 2.0 10/22/18 10/22/18 10/22/18 10/22/18 08:08 09:00 09:33 09:33 Pulse 72 Resp 18 18 B/P (MAP) 118/73 (88) Pulse Ox 99 100 99 99 O2 Delivery Nasal Cannula Nasal Cannula Nasal Cannula Nasal Cannula O2 Flow Rate 2.0 2.0 2.0 10/22/18 10/22/18 10/22/18 10/22/18 09:57 09:57 10:00 11:00 Pulse 71 75 Resp 18 18 B/P (MAP) 121/72 (88) 117/70 (86) Pulse Ox 99 99 100 100 O2 Delivery Nasal Cannula Nasal Cannula Nasal Cannula Nasal Cannula O2 Flow Rate 2.0 2.0 2.0 2.0 10/22/18 10/22/18 10/22/18 10/22/18 11:21 12:00 12:00 12:40 Temp 98.5 98.5 Pulse 74 Resp 20 B/P (MAP) 125/75 (92) Pulse Ox 100 100 100 O2 Delivery Nasal Cannula Nasal Cannula Nasal Cannula Nasal Cannula O2 Flow Rate 2.0 2.0 2.0 2.0 10/22/18 10/22/18 10/22/18 10/22/18 13:00 13:12 14:00 14:26 Pulse 75 76 Resp 18 18 B/P (MAP) 122/70 (87) 121/65 (83) Pulse Ox 100 100 100 100 O2 Delivery Nasal Cannula Nasal Cannula Nasal Cannula Nasal Cannula O2 Flow Rate 2.0 2.0 2.0 2.0 10/22/18 14:26 Pulse 77 B/P (MAP) 121/65 Intake and Output 10/21/18 10/21/18 10/22/18 14:59 22:59 06:59 Intake Total 1300 ml 1764.8 ml Output Total 160 ml 1345 ml 1135 ml Balance -160 ml -45 ml 629.8 ml THEODORA COPELAND MD Oct 22, 2018 15:17
[2018-10-22] MEDS: ACETAMINOPHEN 325 MG TABLET. PO PRN ×2 (16:27→23:19)
[2018-10-22] MEDS: ALPRAZolam 0.5 MG TABLET PO PRN (17:45)
--- NOTE | 2018-10-22 18:02 | NUR ---
NURSING NOTE PT DOING WELL TODAY. AMBULATED 3 TIMES, WALK AROUND UNIT A TOTAL OF 6 TIMES. SWAN REMOVED THIS AM, AND IJ CORDIS REMOVED APPROX 1300. MEDIASTINAL CHEST TUBES PULLED PER DR. NIEVES AROUND 1600. PULMONARY TOILET. INCENTIVE SPIROMETER AT BEDSIDE, INSTRUCTED PATIENT ON USE, PULLING 500-600 TV. PATIENT STILL IN PAIN, IV MORPHINE, OXYCODONE AND TYLENOL BEING ROTATED AND CONTROLLING PAIN WELL. AROUND 1730, PATIENT REQUESTED ANXIETY MEDS R/T FEELING ANXIOUS ABOUT HIS TWO SONS COMING UP AND VISITING FO THE FIRST TIME SINCE HAVING SURGERY. DR. SLATER NOTIFIED AND OKAYED O.5 MG XANAX PRN. PATIENT BACK IN BED, EATING DINNER AND VISITING FAMILY, RESTING COMFORTABLY AT THIS TIME.
[2018-10-22] MEDS: ATORVASTATIN CALCIUM 40 MG TABLET. PO SCH (21:17)
[2018-10-22] MEDS: INSULIN GLARGINE SYRINGE. SQ SCH (21:23)
[2018-10-22] MEDS: ZOLPIDEM 5 MG TABLET. PO PRN (23:19)
[2018-10-23] VITALS (16 sets, daily range): BP systolic 106–153; BP diastolic 45–75
[2018-10-23 05:10] LABS: HEMATOCRIT 31.7 % (39.0-53.0); HEMOGLOBIN 11.3 g/dL (13.0-17.5); RED BLOOD COUNT 3.62 x10^6/uL (4.30-5.70); RED CELL DISTRIBUTION WIDTH 13.3 % (11.5-14.5); WHITE BLOOD COUNT 11.4 x10^3/uL (4.0-11.0)
[2018-10-23 05:48] LABS: CALCIUM 8.7 mg/dL (8.5-10.1); CREATININE 1.2 mg/dL (0.7-1.3); GFR 61.6; MAGNESIUM 1.9 mg/dL (1.8-2.4); POTASSIUM 4.2 mmol/L (3.5-5.1)
[2018-10-23] MEDS: NITROGLYCERIN OINT 1 GM PACKET. TP SCH ×2 (06:00)
[2018-10-23] MEDS: FAMOTIDINE 20 MG/2 ML VIAL IVP SCH (08:17)
[2018-10-23] MEDS: ACETAMINOPHEN 325 MG TABLET. PO PRN ×2 (08:18→20:32)
[2018-10-23] MEDS: DOCUSATE SODIUM 100 MG CAPSULE. PO SCH ×2 (08:18→20:31)
[2018-10-23] MEDS: SENNOSIDES/DOCUSATE 8.6/50MG TABLET. PO SCH ×2 (08:18→20:31)
[2018-10-23] MEDS: glyBURIDE 1.25 MG TABLET PO SCH ×2 (08:18→16:54)
[2018-10-23] MEDS: METOPROLOL TART IMMED RELEASE 25 MG TABLET. PO SCH ×2 (08:18→20:40)
[2018-10-23] MEDS: ASPIRIN ENTERIC COATED 325 MG TABLET.DR. PO SCH (08:19)
[2018-10-23] MEDS: AMIODARONE HCL 200 MG TABLET. PO SCH ×2 (08:19→20:38)
[2018-10-23] MEDS: POLYETHYLENE GLYCOL 3350 17 GM PACKET. PO SCH (08:19)
[2018-10-23] MEDS: INSULIN LISPRO 300 UNITS/3 ML VIAL. SQ SCH ×3 (08:22→17:31)
[2018-10-23] MEDS: CHLORHEXIDINE 0.12% 15 ML MOUTHWASH. MM SCH (08:23)
--- NOTE | 2018-10-23 08:56 | RAD ---
PORTABLE CHEST 1V History: Postop. Comparison with 10/22/2018 Low lung volumes. Cardiomediastinal silhouette is widened. No evidence of pneumothorax, pleural effusion or consolidating infiltrate. Mild hazy markings likely atelectasis. IMPRESSION: Low lung volumes, no consolidating infiltrate. Electronically signed by: Fuad Singh MD (10/23/2018 8:52 AM) [facility]
--- NOTE | 2018-10-23 11:45 | NUR ---
pleural left chest tube removed this am without difficulty. pacemaker wires capped and secured to chest. geiger catheter removed without difficulty. pt given oxycodone 10mg po as requested by pt for pain rating a 7 out of 10 with 10 severe. pt to be transfered to cvc.
[2018-10-23] MEDS: oxyCODONE IR 5 MG TABLET PO PRN ×3 (11:48→20:33)
[2018-10-23] MEDS ORDERED: PROPOFOL 10 MG/ML (100ML) VIAL. IV ONE (12:00)
[2018-10-23] MEDS ORDERED: ALBUMIN HUMAN 5% 12.5 G/250 ML VIAL. IV ONE (12:00)
--- NOTE | 2018-10-23 12:08 | PDOC ---
PROGRESS NOTES Subjective Subjective Patient seen and examined The patient is feeling better today. Objective Objective Vital Signs Date Time Temp Pulse Resp B/P (MAP) Pulse Ox O2 Delivery O2 Flow Rate FiO2 10/23/18 11:50 20 97 Nasal Cannula 2.0 10/23/18 11:00 78 123/72 (89) 10/23/18 08:00 99.0 99.0 Intake and Output 10/23/18 07:00 Intake Total 4994.9 ml Output Total 1930 ml Balance 3064.9 ml Intake Oral 3360 ml IV Total 1634.9 ml Output Urine Total 1485 ml Chest Tube Drainage Total 445 ml Physical Exam Abdomen: Normal bowel sounds Heart: Regular rate General: mild distress Lungs: Clear to auscultation Assessment Assessment Problems Medical Problems: (1) 3-vessel CAD Status: Chronic (2) ACS (acute coronary syndrome) Status: Acute (3) CKD (chronic kidney disease) Status: Chronic (4) Elevated troponin Status: Acute (5) HLD (hyperlipidemia) Status: Chronic (6) HTN (hypertension) Status: Chronic (7) Morbid obesity Status: Chronic (8) NSTEMI (non-ST elevated myocardial infarction) Status: Acute 1. NSTEMI: LHC revealed 3vd. EF and WM nml. Status post CABG �2. Postop day #2. Doing well. As per CV surgery. 2. HTN: controlled 3. HLP: statin 4. DM2: new. per PCP 5. Obesity Comment Review of Relevant I have reviewed the following items rickie (where applicable) has been applied. Labs Laboratory Tests Test 10/21/18 12:10 10/21/18 12:45 10/21/18 13:12 10/21/18 14:00 Activated Clotting Time 106 sec (92-181) White Blood Count 5.3 x10^3/uL (4.0-11.0) Hemoglobin 12.6 g/dL (13.0-17.5) Hematocrit 35.6 % (39.0-53.0) Platelet Count 86 x10^3/uL (140-400) Prothrombin Time 17.3 SEC (11.7-14.0) Prothromb Time International Ratio 1.4 (0.8-1.1) Activated Partial Thromboplast Time 26 SEC (24-38) Fibrinogen 176 mg/dL (200-440) O2 Saturation 96 % (92-99) Arterial Blood pH 7.26 (7.35-7.45) Arterial Blood pCO2 at Patient Temp 46 mmHg (35-46) Arterial Blood pO2 at Patient Temp 95 mmHg (65-108) Arterial Blood HCO3 20 mmol/L (21-28) Arterial Blood Base Excess -7 mmol/L (-3-3) Oxyhemoglobin 95.2 % Methemoglobin 0.5 % (0.0-1.9) Carbon Monoxide, Quantitative 0.5 % (0.0-1.9) FiO2 80% Glucose (Fingerstick) 124 mg/dL (70-99) Test 10/21/18 14:08 10/21/18 16:39 10/21/18 17:35 10/21/18 17:36 White Blood Count 5.0 x10^3/uL (4.0-11.0) 12.2 x10^3/uL (4.0-11.0) Red Blood Count 4.30 x10^6/uL (4.30-5.70) 4.01 x10^6/uL (4.30-5.70) Hemoglobin 13.4 g/dL (13.0-17.5) 12.5 g/dL (13.0-17.5) Hematocrit 37.8 % (39.0-53.0) 35.2 % (39.0-53.0) Mean Corpuscular Volume 88 fL (79-100) 88 fL (79-100) Mean Corpuscular Hemoglobin 31 pg (25-35) 31 pg (25-35) Mean Corpuscular Hemoglobin Concent 36 g/dL (31-37) 36 g/dL (31-37) Red Cell Distribution Width 12.9 % (11.5-14.5) 13.4 % (11.5-14.5) Platelet Count 118 x10^3/uL (140-400) 149 x10^3/uL (140-400) Prothrombin Time 16.2 SEC (11.7-14.0) Prothromb Time International Ratio 1.3 (0.8-1.1) Activated Partial Thromboplast Time 25 SEC (24-38) Sodium Level 145 mmol/L (136-145) 144 mmol/L (136-145) Potassium Level 4.0 mmol/L (3.5-5.1) 4.5 mmol/L (3.5-5.1) Chloride Level 111 mmol/L (98-107) 110 mmol/L (98-107) Carbon Dioxide Level 24 mmol/L (21-32) 24 mmol/L (21-32) Anion Gap 10 (6-14) 10 (6-14) Blood Urea Nitrogen 11 mg/dL (8-26) 13 mg/dL (8-26) Creatinine 1.2 mg/dL (0.7-1.3) 1.3 mg/dL (0.7-1.3) Estimated GFR (Cockcroft-Gault) 61.6 56.1 Glucose Level 131 mg/dL (70-99) 274 mg/dL (70-99) Calcium Level 9.0 mg/dL (8.5-10.1) 8.8 mg/dL (8.5-10.1) Magnesium Level 2.2 mg/dL (1.8-2.4) 1.9 mg/dL (1.8-2.4) O2 Saturation 97 % (92-99) Arterial Blood pH 7.38 (7.35-7.45) Arterial Blood pH (Temp corrected) 7.36 Arterial Blood pCO2 at Patient Temp 42 mmHg (35-46) Arterial Blood pCO2 (Temp correct) 45 mmHg Arterial Blood pO2 at Patient Temp 99 mmHg (65-108) Arterial Blood pO2 (Temp corrected) 107 mmHg Arterial Blood HCO3 25 mmol/L (21-28) Arterial Blood Base Excess -1 mmol/L (-3-3) BUN/Creatinine Ratio 10 (6-20) Total Bilirubin 1.0 mg/dL (0.2-1.0) Aspartate Amino Transf (AST/SGOT) 57 U/L (15-37) Alanine Aminotransferase (ALT/SGPT) 28 U/L (16-63) Alkaline Phosphatase 47 U/L (46-116) Total Protein 5.1 g/dL (6.4-8.2) Albumin 3.6 g/dL (3.4-5.0) Albumin/Globulin Ratio 2.4 (1.0-1.7) Glucose (Fingerstick) 225 mg/dL (70-99) Test 10/21/18 21:05 10/22/18 02:05 10/22/18 03:20 10/22/18 04:28 Glucose (Fingerstick) 291 mg/dL (70-99) 285 mg/dL (70-99) 254 mg/dL (70-99) 220 mg/dL (70-99) Test 10/22/18 05:42 10/22/18 05:45 10/22/18 06:44 10/22/18 07:56 Glucose (Fingerstick) 204 mg/dL (70-99) 226 mg/dL (70-99) 188 mg/dL (70-99) White Blood Count 11.4 x10^3/uL (4.0-11.0) Red Blood Count 3.76 x10^6/uL (4.30-5.70) Hemoglobin 11.7 g/dL (13.0-17.5) Hematocrit 33.2 % (39.0-53.0) Mean Corpuscular Volume 88 fL (79-100) Mean Corpuscular Hemoglobin 31 pg (25-35) Mean Corpuscular Hemoglobin Concent 35 g/dL (31-37) Red Cell Distribution Width 13.2 % (11.5-14.5) Platelet Count 134 x10^3/uL (140-400) Sodium Level 139 mmol/L (136-145) Potassium Level 4.8 mmol/L (3.5-5.1) Chloride Level 105 mmol/L (98-107) Carbon Dioxide Level 23 mmol/L (21-32) Anion Gap 11 (6-14) Blood Urea Nitrogen 13 mg/dL (8-26) Creatinine 1.4 mg/dL (0.7-1.3) Estimated GFR (Cockcroft-Gault) 51.5 Glucose Level 217 mg/dL (70-99) Calcium Level 8.8 mg/dL (8.5-10.1) Magnesium Level 2.0 mg/dL (1.8-2.4) Test 10/22/18 09:12 10/22/18 12:32 10/22/18 12:45 10/22/18 17:44 Glucose (Fingerstick) 176 mg/dL (70-99) 189 mg/dL (70-99) 154 mg/dL (70-99) White Blood Count 11.7 x10^3/uL (4.0-11.0) Red Blood Count 3.78 x10^6/uL (4.30-5.70) Hemoglobin 11.8 g/dL (13.0-17.5) Hematocrit 33.0 % (39.0-53.0) Mean Corpuscular Volume 88 fL (79-100) Mean Corpuscular Hemoglobin 31 pg (25-35) Mean Corpuscular Hemoglobin Concent 36 g/dL (31-37) Red Cell Distribution Width 13.2 % (11.5-14.5) Platelet Count 132 x10^3/uL (140-400) Test 10/22/18 21:21 10/23/18 04:45 10/23/18 08:12 Glucose (Fingerstick) 184 mg/dL (70-99) 190 mg/dL (70-99) White Blood Count 11.4 x10^3/uL (4.0-11.0) Red Blood Count 3.62 x10^6/uL (4.30-5.70) Hemoglobin 11.3 g/dL (13.0-17.5) Hematocrit 31.7 % (39.0-53.0) Mean Corpuscular Volume 87 fL (79-100) Mean Corpuscular Hemoglobin 31 pg (25-35) Mean Corpuscular Hemoglobin Concent 36 g/dL (31-37) Red Cell Distribution Width 13.3 % (11.5-14.5) Platelet Count 109 x10^3/uL (140-400) Sodium Level 138 mmol/L (136-145) Potassium Level 4.2 mmol/L (3.5-5.1) Chloride Level 103 mmol/L (98-107) Carbon Dioxide Level 27 mmol/L (21-32) Anion Gap 8 (6-14) Blood Urea Nitrogen 12 mg/dL (8-26) Creatinine 1.2 mg/dL (0.7-1.3) Estimated GFR (Cockcroft-Gault) 61.6 Glucose Level 196 mg/dL (70-99) Calcium Level 8.7 mg/dL (8.5-10.1) Magnesium Level 1.9 mg/dL (1.8-2.4) Laboratory Tests Test 10/22/18 12:32 10/22/18 12:45 10/22/18 17:44 10/22/18 21:21 Glucose (Fingerstick) 189 mg/dL (70-99) 154 mg/dL (70-99) 184 mg/dL (70-99) White Blood Count 11.7 x10^3/uL (4.0-11.0) Red Blood Count 3.78 x10^6/uL (4.30-5.70) Hemoglobin 11.8 g/dL (13.0-17.5) Hematocrit 33.0 % (39.0-53.0) Mean Corpuscular Volume 88 fL (79-100) Mean Corpuscular Hemoglobin 31 pg (25-35) Mean Corpuscular Hemoglobin Concent 36 g/dL (31-37) Red Cell Distribution Width 13.2 % (11.5-14.5) Platelet Count 132 x10^3/uL (140-400) Test 10/23/18 04:45 10/23/18 08:12 White Blood Count 11.4 x10^3/uL (4.0-11.0) Red Blood Count 3.62 x10^6/uL (4.30-5.70) Hemoglobin 11.3 g/dL (13.0-17.5) Hematocrit 31.7 % (39.0-53.0) Mean Corpuscular Volume 87 fL (79-100) Mean Corpuscular Hemoglobin 31 pg (25-35) Mean Corpuscular Hemoglobin Concent 36 g/dL (31-37) Red Cell Distribution Width 13.3 % (11.5-14.5) Platelet Count 109 x10^3/uL (140-400) Sodium Level 138 mmol/L (136-145) Potassium Level 4.2 mmol/L (3.5-5.1) Chloride Level 103 mmol/L (98-107) Carbon Dioxide Level 27 mmol/L (21-32) Anion Gap 8 (6-14) Blood Urea Nitrogen 12 mg/dL (8-26) Creatinine 1.2 mg/dL (0.7-1.3) Estimated GFR (Cockcroft-Gault) 61.6 Glucose Level 196 mg/dL (70-99) Calcium Level 8.7 mg/dL (8.5-10.1) Magnesium Level 1.9 mg/dL (1.8-2.4) Glucose (Fingerstick) 190 mg/dL (70-99) Medications Current Medications Aspirin (Miri Aspirin) 325 mg 1X ONCE PO Last administered on 10/17/18at 19:02; Start 10/17/18 at 18:30; Stop 10/17/18 at 19:02; Status DC Enoxaparin Sodium (Lovenox 100mg Syringe) 90 mg 1X ONCE SQ Last administered on 10/17/18at 19:51; Start 10/17/18 at 19:15; Stop 10/17/18 at 19:23; Status DC Ondansetron HCl (Zofran) 4 mg PRN Q6HRS PRN IV NAUSEA/VOMITING; Start 10/17/18 at 20:45; Stop 10/21/18 at 13:24; Status DC Acetaminophen (Tylenol) 500 mg PRN Q6HRS PRN PO MILD PAIN / TEMP; Start 10/17/18 at 20:45; Stop 10/22/18 at 09:08; Status DC Acetaminophen/ Codeine Phosphate (Tylenol #3) 1 tab PRN Q6HRS PRN PO MODERATE PAIN Last administered on 10/18/18at 11:26; Start 10/17/18 at 20:45; Stop 10/23/18 at 09:12; Status DC Zolpidem Tartrate (Ambien) 5 mg PRN QHS PRN PO INSOMNIA Last administered on 10/18/18at 22:19; Start 10/17/18 at 20:45; Stop 10/19/18 at 08:30; Status DC Labetalol HCl (Normodyne Iv Push) 20 mg PRN Q2HR PRN IVP HYPERTENSION; Start 10/17/18 at 20:45 Sodium Chloride 1,000 ml @ 100 mls/hr 1X ONCE IV Last administered on 10/17/18at 23:32; Start 10/17/18 at 20:45; Stop 10/18/18 at 06:44; Status DC Iodixanol (Visipaque 320) 100 ml STK-MED ONCE .ROUTE ; Start 10/18/18 at 09:17; Stop 10/18/18 at 09:17; Status DC Lidocaine HCl (Lidocaine 1% 20ml Vial) 20 ml STK-MED ONCE .ROUTE ; Start 10/18/18 at 09:17; Stop 10/18/18 at 09:17; Status DC Heparin Sodium/ Sodium Chloride 1,000 ml @ As Directed STK-MED ONCE .ROUTE ; Start 10/18/18 at 09:17; Stop 10/18/18 at 09:17; Status DC Fentanyl Citrate (Fentanyl 2ml Vial) 100 mcg STK-MED ONCE .ROUTE ; Start 10/18/18 at 09:24; Stop 10/18/18 at 09:24; Status DC Midazolam HCl (Versed) 5 mg STK-MED ONCE .ROUTE ; Start 10/18/18 at 09:24; Stop 10/18/18 at 09:24; Status DC Heparin Sodium (Porcine) (Heparin Sodium) 10,000 unit STK-MED ONCE .ROUTE ; Start 10/18/18 at 09:26; Stop 10/18/18 at 09:26; Status DC Verapamil HCl (Verapamil) 5 mg STK-MED ONCE .ROUTE ; Start 10/18/18 at 09:26; Stop 10/18/18 at 09:26; Status DC Nitroglycerin (Nitroglycerin) 200 mcg STK-MED ONCE .ROUTE ; Start 10/18/18 at 09:26; Stop 10/18/18 at 09:26; Status DC Iodixanol (Visipaque 320) 100 ml STK-MED ONCE .ROUTE ; Start 10/18/18 at 09:53; Stop 10/18/18 at 09:53; Status DC Nitroglycerin (Nitroglycerin) 200 mcg 1X ONCE IART Last administered on 10/18/18at 10:50; Start 10/18/18 at 10:15; Stop 10/18/18 at 10:21; Status DC Verapamil HCl (Verapamil) 2.5 mg 1X ONCE IART Last administered on 10/18/18at 10:50; Start 10/18/18 at 10:15; Stop 10/18/18 at 10:21; Status DC Heparin Sodium (Porcine) (Heparin Sodium) 2,500 unit 1X ONCE IART Last administered on 10/18/18at 10:50; Start 10/18/18 at 10:15; Stop 10/18/18 at 10:21; Status DC Heparin Sodium/ Sodium Chloride (HEPARIN for ARTERIAL LINE FLUSH) 1,000 unit 1X ONCE IART Last administered on 10/18/18at 10:50; Start 10/18/18 at 10:15; Stop 10/18/18 at 10:21; Status DC Heparin Sodium/ Sodium Chloride (HEPARIN for ARTERIAL LINE FLUSH) 1,000 unit 1X ONCE IART Last administered on 10/18/18at 10:50; Start 10/18/18 at 10:15; Stop 10/18/18 at 10:21; Status DC Midazolam HCl (Versed) 5 mg 1X ONCE IV Last administered on 10/18/18at 10:50; Start 10/18/18 at 10:15; Stop 10/18/18 at 10:21; Status DC Fentanyl Citrate (Fentanyl 2ml Vial) 100 mcg 1X ONCE IV Last administered on 10/18/18at 10:50; Start 10/18/18 at 10:15; Stop 10/18/18 at 10:21; Status DC Lidocaine HCl (Lidocaine 1% 20ml Vial) 20 ml 1X ONCE INJ Last administered on 10/18/18at 10:50; Start 10/18/18 at 10:15; Stop 10/18/18 at 10:21; Status DC Iodixanol (Visipaque 320) 100 ml 1X ONCE IART Last administered on 10/18/18at 10:50; Start 10/18/18 at 10:15; Stop 10/18/18 at 10:21; Status DC Info (CONTRAST GIVEN -- Rx MONITORING) 1 each PRN DAILY PRN MC SEE COMMENTS; Start 10/18/18 at 10:30; Stop 10/20/18 at 10:29; Status DC Sodium Chloride (Normal Saline Flush) 3 ml QSHIFT PRN IV AFTER MEDS AND BLOOD DRAWS; Start 10/18/18 at 11:00; Stop 10/22/18 at 09:07; Status DC Sodium Chloride 1,000 ml @ 75 mls/hr [id number] IV Last administered on 10/18/18at 11:20; Start 10/18/18 at 11:30; Stop 10/18/18 at 11:31; Status DC Nitroglycerin (Nitrostat) 0.4 mg PRN Q5MIN PRN SL CHEST PAIN; Start 10/18/18 at 11:00 Metoprolol Tartrate (Lopressor) 12.5 mg BID PO Last administered on 10/18/18at 11:26; Start 10/18/18 at 11:00; Stop 10/18/18 at 15:10; Status DC Atorvastatin Calcium (Lipitor) 20 mg QHS PO ; Start 10/18/18 at 21:00; Stop 10/18/18 at 15:07; Status DC Heparin Sodium/ Dextrose 500 ml @ 0 mls/hr CONT PRN PRN IV SEE PROTOCOL Last administered on 10/21/18at 06:00; Start 10/18/18 at 11:00; Stop 10/22/18 at 11:36; Status DC Heparin Sodium (Porcine) (Heparin Sodium) 2,300 unit PRN Q6HRS PRN IV FOR UFH LEVEL LESS THAN 0.2; Start 10/18/18 at 11:00; Stop 10/22/18 at 11:36; Status DC Cefazolin Sodium/ Dextrose 50 ml @ 100 mls/hr 1X PREOP PRN IV PRIOR TO PROCEDURE; Start 10/19/18 at 06:00; Stop 10/19/18 at 14:00; Status DC Atorvastatin Calcium (Lipitor) 40 mg QHS PO Last administered on 10/22/18at 21:23; Start 10/18/18 at 21:00 Metoprolol Tartrate (Lopressor) 25 mg BID PO Last administered on 10/20/18at 20:37; Start 10/18/18 at 21:00; Stop 10/21/18 at 13:27; Status DC Aspirin (Ecotrin) 81 mg [id number] PO Last administered on 10/20/18at 08:54; Start 10/18/18 at 15:15; Stop 10/21/18 at 13:26; Status DC Acetaminophen/ Hydrocodone Bitart (Lortab 7.5/325) 1 tab PRN Q6HRS PRN PO PAIN SEVERE Last administered on 10/18/18at 16:49; Start 10/18/18 at 16:15; Stop 10/23/18 at 09:12; Status DC Alprazolam (Xanax) 0.5 mg Q6HRS PRN PO ANXIETY / AGITATION Last administered on 10/22/18at 17:46; Start 10/18/18 at 19:15 Morphine Sulfate (Morphine Sulfate) 2 mg PRN Q2HR PRN IV PAIN Last administered on 10/20/18at 18:46; Start 10/18/18 at 20:00; Stop 10/22/18 at 09:09; Status DC Zolpidem Tartrate (Ambien) 5 mg PRN QHS PRN PO INSOMNIA Last administered on 10/22/18at 23:19; Start 10/19/18 at 08:30 Metformin HCl (Glucophage) 500 mg BIDWMEALS PO ; Start 10/19/18 at 17:00; Stop 10/20/18 at 08:55; Status DC Glyburide (Diabeta) 1.25 mg BIDWMEALS PO Last administered on 10/20/18at 08:54; Start 10/19/18 at 17:00; Stop 10/20/18 at 08:55; Status DC Insulin Human Lispro (HumaLOG) 0-9 UNITS TIDWMEALS SQ Last administered on 10/23/18at 11:50; Start 10/19/18 at 12:00 Dextrose (Dextrose 50%-Water Syringe) 12.5 gm PRN Q15MIN PRN IV SEE COMMENTS; Start 10/19/18 at 11:30; Stop 10/22/18 at 09:09; Status DC Dextrose 250 ml PRN Q15MIN PRN IV SEE COMMENTS; Start 10/19/18 at 11:30; Status UNV Nitroglycerin (Nitro-Bid Oint) 0.5 inch Q6HRS TP ; Start 10/19/18 at 18:00; Stop 10/23/18 at 09:03; Status DC Info (Anti-Coagulation Monitoring By Pharmacy) 1 each PRN DAILY PRN MC SEE COMMENTS Last administered on 10/20/18at 15:10; Start 10/19/18 at 13:45; Stop 10/22/18 at 11:36; Status DC Docusate Sodium (Colace) 100 mg BID PO Last administered on 10/23/18at 08:19; Start 10/19/18 at 21:00 Polyethylene Glycol (miraLAX PACKET) 17 gm DAILY PO Last administered on 10/23/18at 08:19; Start 10/19/18 at 17:00 Magnesium Hydroxide (Milk Of Magnesia) 2,400 mg PRN DAILY PRN PO CONSTIPATION; Start 10/19/18 at 17:00 Magnesium Hydroxide (Milk Of Magnesia) 2,400 mg 1X ONCE PO Last administered on 10/19/18at 17:52; Start 10/19/18 at 17:00; Stop 10/19/18 at 17:02; Status DC Nitroglycerin/ Dextrose 250 ml @ 1.5 mls/hr CONT PRN IV SEE I/O RECORD Last administered on 10/19/18at 18:37; Start 10/19/18 at 18:30; Stop 10/22/18 at 09:09; Status DC Glyburide (Diabeta) 2.5 mg BIDWMEALS PO ; Start 10/20/18 at 09:00; Stop 10/20/18 at 09:10; Status DC Glyburide (Diabeta) 2.5 mg BIDWMEALS PO Last administered on 10/23/18at 08:19; Start 10/20/18 at 17:00 Glyburide (Diabeta) 1.25 mg 1X ONCE PO Last administered on 10/20/18at 09:26; Start 10/20/18 at 09:30; Stop 10/20/18 at 09:31; Status DC Heparin Sodium (Porcine) 37227 unit/Ringer's Solution 1,020 ml @ 1,020 mls/hr 1X PERIOP@0600 ONCE IRR Last administered on 10/21/18at 10:24; Start 10/21/18 at 06:00; Stop 10/21/18 at 06:59; Status DC Potassium Chloride 70 meq/ Sodium Bicarbonate 12.5 meq/Lidocaine HCl 24 ml/Pare nteral Electrolytes 571.5 ml @ 571.5 mls/ hr 1X PERIOP@0600 ONCE IRR ; Start 10/21/18 at 06:00; Stop 10/21/18 at 06:59; Status DC Potassium Chloride 15 meq/ Sodium Bicarbonate 12.5 meq/Parenteral Electrolytes 520 ml @ 520 mls/hr 1X PERIOP@0600 ONCE IRR ; Start 10/21/18 at 06:00; Stop 10/21/18 at 06:59; Status DC Cefazolin Sodium 1 gm/Sodium Chloride 500 ml @ 500 mls/hr 1X ONCE IRR Last administered on 10/21/18at 10:24; Start 10/21/18 at 06:00; Stop 10/21/18 at 06:59; Status DC Calcium Carbonate/ Glycine (Tums) 500 mg PRN Q3HRS PRN PO INDIGESTION Last administered on 10/20/18at 20:37; Start 10/20/18 at 20:15 Phenylephrine HCl (PHENYLEPHRINE in 0.9% NACL PF) 1 mg STK-MED ONCE IV ; Start 10/21/18 at 06:28; Stop 10/21/18 at 06:28; Status DC Etomidate (Amidate) 20 mg STK-MED ONCE IV ; Start 10/21/18 at 06:28; Stop 10/21/18 at 06:28; Status DC Aminocaproic Acid (Amicar) 5,000 mg STK-MED ONCE IV ; Start 10/21/18 at 06:28; Stop 10/21/18 at 06:28; Status DC Nitroglycerin/ Dextrose 0 ml @ As Directed STK-MED ONCE IV ; Start 10/21/18 at 06:28; Stop 10/21/18 at 06:28; Status DC Rocuronium [place] (Zemuron) 100 mg STK-MED ONCE .ROUTE ; Start 10/21/18 at 06:28; Stop 10/21/18 at 06:28; Status DC Heparin Sodium (Porcine) 30,000 unit STK-MED ONCE .ROUTE ; Start 10/21/18 at 06:29; Stop 10/21/18 at 06:29; Status DC Ondansetron HCl (Zofran) 4 mg PRN Q6HRS PRN IV NAUSEA/VOMITING; Start 10/21/18 at 06:30; Stop 10/22/18 at 06:29; Status DC Fentanyl Citrate (Fentanyl 2ml Vial) 25 mcg PRN Q5MIN PRN IV MILD PAIN 1-3; S tart 10/21/18 at 06:30; Stop 10/22/18 at 06:29; Status DC Fentanyl Citrate (Fentanyl 2ml Vial) 50 mcg PRN Q5MIN PRN IV MODERATE TO SEVERE PAIN; Start 10/21/18 at 06:30; Stop 10/22/18 at 06:29; Status DC Morphine Sulfate (Morphine Sulfate) 1 mg PRN Q10MIN PRN IV SEVERE PAIN 7-10; Start 10/21/18 at 06:30; Stop 10/22/18 at 06:29; Status DC Ringer's Solution 1,000 ml @ 30 mls/hr Q24H IV ; Start 10/21/18 at 06:30; Stop 10/21/18 at 18:29; Status DC Hydromorphone HCl (Dilaudid) 0.5 mg PRN Q10MIN PRN IV SEV PAIN, Second choice; Start 10/21/18 at 06:30; Stop 10/22/18 at 06:29; Status DC Prochlorperazine Edisylate (Compazine) 5 mg PACU PRN PRN IV NAUSEA, MRX1; Start 10/21/18 at 06:30; Stop 10/22/18 at 06:29; Status DC Nitroglycerin/ Dextrose 250 ml @ As Directed STK-MED ONCE IV ; Start 10/21/18 at 06:42; Stop 10/21/18 at 06:43; Status DC Sufentanil Citrate (Sufenta) 250 mcg STK-MED ONCE .ROUTE ; Start 10/21/18 at 06:45; Stop 10/21/18 at 06:46; Status DC Midazolam HCl (Versed) 2 mg STK-MED ONCE .ROUTE ; Start 10/21/18 at 06:45; Stop 10/21/18 at 06:46; Status DC Vancomycin HCl (VANCO for OR ONLY) 10 gm STK-MED ONCE .ROUTE Last administered on 10/21/18at 10:19; Start 10/21/18 at 06:58; Stop 10/21/18 at 06:59; Status DC Cellulose (Surgicel Hemostat 4x8) 1 each STK-MED ONCE .ROUTE Last administered on 10/21/18at 10:19; Start 10/21/18 at 06:59; Stop 10/21/18 at 06:59; Status DC Papaverine HCl 60 mg STK-MED ONCE .ROUTE Last administered on 10/21/18at 10:24; Start 10/21/18 at 06:59; Stop 10/21/18 at 06:59; Status DC Sodium Chloride (SODIUM CHLORIDE 20ml) 20 ml STK-MED ONCE IJ Last administered on 10/21/18at 10:19; Start 10/21/18 at 06:59; Stop 10/21/18 at 06:59; Status DC Sodium Chloride (SODIUM CHLORIDE 20ml) 20 ml STK-MED ONCE IJ Last administered on 10/21/18at 10:19; Start 10/21/18 at 06:59; Stop 10/21/18 at 07:00; Status DC Sodium Chloride (SODIUM CHLORIDE 20ml) 20 ml STK-MED ONCE IJ Last administered on 10/21/18at 10:19; Start 10/21/18 at 06:59; Stop 10/21/18 at 07:00; Status DC Insulin Human Regular 150 unit/ Sodium Chloride 151.5 ml @ 9.292 mls/ hr CONT PRN IV SEE I/O RECORD; Start 10/21/18 at 07:15; Stop 10/22/18 at 09:09; Status D C Aspirin (Aspirin Rectal Supp) 300 mg 1X ONCE VA Last administered on 10/21/18at 13:12; Start 10/21/18 at 07:30; Stop 10/21/18 at 07:31; Status DC Cefazolin Sodium/ Dextrose 50 ml @ 100 mls/hr 1X PREOP PRN IV PRIOR TO PROCEDURE; Start 10/22/18 at 06:00; Stop 10/22/18 at 18:00; Status DC Heparin Sodium (Porcine) (Heparin Sodium) 10,000 unit STK-MED ONCE .ROUTE ; Start 10/21/18 at 09:06; Stop 10/21/18 at 09:06; Status DC Rocuronium [place] (Zemuron) 50 mg STK-MED ONCE .ROUTE ; Start 10/21/18 at 09:39; Stop 10/21/18 at 09:39; Status DC Cefazolin Sodium (Ancef) 1 gm STK-MED ONCE .ROUTE ; Start 10/21/18 at 09:40; Stop 10/21/18 at 09:41; Status DC Cefazolin Sodium (Ancef) 1 gm STK-MED ONCE .ROUTE ; Start 10/21/18 at 09:40; Stop 10/21/18 at 09:41; Status DC Insulin Glargine (Lantus Syringe) 15 unit QHS SQ Last administered on 10/22/18at 21:23; Start 10/21/18 at 21:00 Midazolam HCl (Versed) 2 mg STK-MED ONCE .ROUTE ; Start 10/21/18 at 10:12; Stop 10/21/18 at 10:12; Status DC Albumin Human 500 ml @ As Directed STK-MED ONCE IV ; Start 10/21/18 at 12:03; Stop 10/21/18 at 12:03; Status DC Lidocaine HCl (Lidocaine Pf 2% Vial) 5 ml STK-MED ONCE .ROUTE ; Start 10/21/18 at 12:08; Stop 10/21/18 at 12:08; Status DC Magnesium Sulfate 5 gm STK-MED ONCE .ROUTE ; Start 10/21/18 at 12:08; Stop 10/21/18 at 12:08; Status DC Heparin Sodium (Porcine) 30,000 unit STK-MED ONCE .ROUTE ; Start 10/21/18 at 12:08; Stop 10/21/18 at 12:08; Status DC Mannitol (Mannitol) 12.5 g STK-MED ONCE .ROUTE ; Start 10/21/18 at 12:08; Stop 10/21/18 at 12:08; Status DC Albumin Human 100 ml @ As Directed STK-MED ONCE IV ; Start 10/21/18 at 12:08; Stop 10/21/18 at 12:08; Status DC Calcium Chloride (Calcium Chloride) 1,000 mg STK-MED ONCE .ROUTE ; Start 10/21/18 at 12:08; Stop 10/21/18 at 12:08; Status DC Rocuronium [place] (Zemuron) 50 mg STK-MED ONCE .ROUTE ; Start 10/21/18 at 12:47; Stop 10/21/18 at 12:47; Status DC Fentanyl Citrate (Fentanyl 2ml Vial) 100 mcg STK-MED ONCE .ROUTE ; Start 10/21/18 at 13:00; Stop 10/21/18 at 13:00; Status DC Sodium Chloride (Normal Saline Flush) 3 ml PRN Q12HR PRN IV AFTER MEDS AND BLOOD DRAWS; Start 10/21/18 at 13:15 Ringer's Solution 1,000 ml @ 30 mls/hr Q24H IV Last administered on 10/22/18at 13:13; Start 10/21/18 at 13:12; Stop 10/23/18 at 11:34; Status DC Albumin Human 250 ml @ 500 mls/hr PRN Q4HRS PRN IV SEE COMMENTS Last administered on 10/21/18at 18:29; Start 10/21/18 at 13:15 Insulin Human Regular 150 unit/ Sodium Chloride 151.5 ml @ 0 mls/hr CONT PRN PRN IV PER PROTOCOL Last administered on 10/22/18at 02:29; Start 10/21/18 at 13:15; Stop 10/23/18 at 09:03; Status DC Dextrose (Dextrose 50%-Water Syringe) 25 gm PRN Q15MIN PRN IV LOW BLOOD SUGAR; Start 10/21/18 at 13:15 Nitroglycerin/ Dextrose 250 ml @ 0 mls/hr CONT PRN PRN IV POST CV SURGERY; Start 10/21/18 at 13:15 Phenylephrine HCl 20 mg/Sodium Chloride 252 ml @ 0 mls/hr CONT PRN PRN IV HYPOTENSION; Start 10/21/18 at 13:15 Amiodarone HCl 150 mg/Dextrose 103 ml @ 600 mls/hr 1X ONCE IV Last administered on 10/21/18at 15:59; Start 10/21/18 at 13:15; Stop 10/21/18 at 13:29; Status DC Amiodarone HCl 150 mg/Dextrose 103 ml @ 200 mls/hr 1X PRN PRN IV FOR AFIB; Start 10/21/18 at 13:15 Amiodarone HCl 900 mg/Dextrose 518 ml @ 0 mls/hr CONT PRN PRN IV AFIB Last administered on 10/21/18at 15:59; Start 10/21/18 at 13:15 Info (KCl Per Protocol) 1 ea CONT PRN PRN MC SEE COMMENTS; Start 10/21/18 at 13:15; Stop 10/23/18 at 09:03; Status DC Magnesium Sulfate/ Dextrose 100 ml @ 100 mls/hr PRN DAILY PRN IV FOR MAG < 2.2 Last administered on 10/23/18at 08:19; Start 10/21/18 at 13:15 Famotidine (Pepcid Vial) 20 mg BID IVP Last administered on 10/23/18at 08:19; Start 10/21/18 at 21:00; Stop 10/23/18 at 09:03; Status DC Ondansetron HCl (Zofran) 4 mg PRN Q4HRS PRN IV NAUSEA/VOMITING, 1st CHOICE; Start 10/21/18 at 13:15 Prochlorperazine Edisylate (Compazine) 10 mg PRN Q6HRS PRN IV NAUSEA/VOMITING, 2nd CHOICE; Start 10/21/18 at 13:15 Metoclopramide HCl (Reglan Vial) 10 mg PRN Q6HRS PRN IV NAUSEA/VOMITING, 3rd CHOICE; Start 10/21/18 at 13:15 Morphine Sulfate (Morphine Sulfate) 2 mg PRN Q1HR PRN IV MODERATE PAIN Last administered on 10/22/18at 16:27; Start 10/21/18 at 13:15 Morphine Sulfate (Morphine Sulfate) 4 mg PRN Q1HR PRN IV SEVERE PAIN Last administered on 10/22/18at 09:33; Start 10/21/18 at 13:15 Acetaminophen (Tylenol) 650 mg PRN Q4HRS PRN PO TEMP > 101'F or MILD PAIN Last administered on 10/23/18at 08:19; Start 10/21/18 at 13:15 Acetaminophen (Tylenol Supp) 650 mg PRN Q4HRS PRN VA TEMP > 101'F or MILD PAIN; Start 10/21/18 at 13:15; Stop 10/23/18 at 09:12; Status DC Meperidine HCl (Demerol) 12.5 mg PRN Q15MIN PRN IV SHIVERING; Start 10/21/18 at 13:15 Senna/Docusate Sodium (Senna Plus) 1 tab BID PO Last administered on 10/23/18at 08:19; Start 10/21/18 at 21:00 Bisacodyl (Dulcolax Supp) 10 mg PRN DAILY PRN VA NO BOWEL MOVEMENT; Start 10/21/18 at 13:15 Chlorhexidine Gluconate (Peridex) 15 ml BID MM ; Start 10/22/18 at 09:00; Stop 10/23/18 at 09:03; Status DC Aspirin (Ecotrin) 325 mg DAILYWBKFT PO Last administered on 10/23/18at 08:19; Start 10/22/18 at 08:00 Aspirin (Aspirin Rectal Supp) 300 mg PRN DAILY PRN VA IF UNABLE TO TAKE PO; Start 10/22/18 at 08:00; Stop 10/23/18 at 09:12; Status DC Albuterol Sulfate (Ventolin Neb Soln) 2.5 mg PRN Q4HRS PRN NEB SHORTNESS OF BREATH; Start 10/21/18 at 13:15 Metoprolol Tartrate (Lopressor) 25 mg BID PO Last administered on 10/23/18at 08:19; Start 10/22/18 at 09:00 Nicardipine HCl 50 mg/Sodium Chloride 250 ml @ 0 mls/hr CONT PRN PRN IV PER PROTOCOL; Start 10/21/18 at 13:15 Oxycodone HCl (Roxicodone) 5 mg PRN Q4HRS PRN PO MODERATE PAIN Last a dministered on 10/22/18at 14:26; Start 10/21/18 at 13:15 Oxycodone HCl (Roxicodone) 10 mg PRN Q4HRS PRN PO SEVERE PAIN Last administered on 10/23/18at 11:50; Start 10/21/18 at 13:15 Dextrose 250 ml PRN Q15MIN PRN IV LOW BLOOD SUGAR; Start 10/21/18 at 13:15 Cefazolin Sodium/ Dextrose 50 ml @ 100 mls/hr Q8H IV Last administered on 10/23/18at 00:47; Start 10/21/18 at 16:30; Stop 10/23/18 at 00:59; Status DC Sodium Bicarbonate (Sodium Bicarb Adult 8.4% Syr) 50 meq 1X ONCE IV Last administered on 10/21/18at 15:59; Start 10/21/18 at 15:00; Stop 10/21/18 at 15:07; Status DC Potassium Chloride/Water 50 ml @ 50 mls/hr 1X ONCE IV ; Start 10/21/18 at 18:00; Stop 10/21/18 at 18:39; Status DC Amiodarone HCl (Cordarone) 200 mg BID PO Last administered on 10/23/18at 08:19; Start 10/22/18 at 14:00 Famotidine (Pepcid) 20 mg BID PO ; Start 10/23/18 at 21:00 Vitals/I & O Vital Sign - Last 24 Hours 10/22/18 10/22/18 10/22/18 10/22/18 12:40 13:00 13:12 14:00 Pulse 75 76 Resp 18 18 B/P (MAP) 122/70 (87) 121/65 (83) Pulse Ox 100 100 100 100 O2 Delivery Nasal Cannula Nasal Cannula Nasal Cannula Nasal Cannula O2 Flow Rate 2.0 2.0 2.0 2.0 10/22/18 10/22/18 10/22/18 10/22/18 14:26 14:26 15:00 16:00 Pulse 77 78 Resp 18 B/P (MAP) 121/65 140/72 (94) Pulse Ox 100 100 O2 Delivery Nasal Cannula Room Air Nasal Cannula O2 Flow Rate 2.0 2.0 9/03/1110/22/18 10/22/18 10/22/18 16:00 16:13 16:27 17:00 Temp 98.6 98.6 Pulse 79 81 Resp 18 18 B/P (MAP) 143/75 (97) 130/70 (90) Pulse Ox 99 100 100 100 O2 Delivery Room Air Room Air Nasal Cannula Room Air O2 Flow Rate 2.0 10/22/18 10/22/18 10/22/18 10/22/18 17:50 18:00 19:00 20:00 Temp 98.7 98.7 Pulse 82 81 82 Resp 18 16 18 B/P (MAP) 153/99 (117) 142/86 (104) 137/64 (88) Pulse Ox 100 100 100 O2 Delivery Nasal Cannula Room Air Room Air Room Air O2 Flow Rate 2.0 10/22/18 10/22/18 10/22/18 10/22/18 20:02 21:00 21:23 21:23 Pulse 81 84 84 Resp 19 B/P (MAP) 148/62 (90) 148/62 148/62 O2 Delivery Room Air Room Air 10/22/18 10/22/18 10/22/18 10/23/18 21:23 22:00 23:00 00:00 Temp 99.2 99.2 Pulse 78 80 79 Resp 18 16 17 15 B/P (MAP) 138/59 (85) 109/49 (69) 108/63 (78) Pulse Ox 100 O2 Delivery Room Air Room Air Room Air Room Air 10/23/18 10/23/18 10/23/18 10/23/18 01:00 02:00 03:00 04:00 Temp 99.0 99.0 Pulse 79 79 80 80 Resp 16 19 B/P (MAP) 132/58 (82) 106/58 (74) 125/63 (83) 129/45 (73) O2 Delivery Room Air Room Air Room Air Room Air 10/23/18 10/23/18 10/23/18 10/23/18 05:00 06:00 07:00 08:00 Temp 99.6 99.6 Pulse 80 82 83 Resp 17 16 16 B/P (MAP) 128/59 (82) 125/62 (83) 130/65 (86) Pulse Ox 89 O2 Delivery Room Air Room Air Room Air Nasal Cannula O2 Flow Rate 2.0 10/23/18 10/23/18 10/23/18 10/23/18 08:00 08:19 08:19 09:00 Temp 99.0 99.0 Pulse 82 83 83 84 Resp 16 16 B/P (MAP) 144/75 (98) 130/65 130/65 136/72 (93) Pulse Ox 98 96 O2 Delivery Nasal Cannula Room Air O2 Flow Rate 2.0 10/23/18 10/23/18 10/23/18 10:00 11:00 11:50 Pulse 78 78 Resp 16 20 20 B/P (MAP) 123/73 (90) 123/72 (89) Pulse Ox 94 97 97 O2 Delivery Room Air Nasal Cannula Nasal Cannula O2 Flow Rate 2.0 2.0 Intake and Output 10/22/18 10/22/18 10/23/18 15:00 23:00 07:00 Intake Total 1400 ml 1500 ml 2094.9 ml Output Total 740 ml 485 ml 705 ml Balance 660 ml 1015 ml 1389.9 ml THEODORA COPELAND MD Oct 23, 2018 12:08
--- NOTE | 2018-10-23 12:48 | PDOC ---
Progress Note Subjective Subjective Doing extremely well. Ambulating. Normotensive, SR. On room air. Hb 11.3, creat 1.2. CXR OK. ROS ROS No nausea No vomiting No pain No rash Vital Sign Vital Signs Vital Signs Date Time Temp Pulse Resp B/P (MAP) Pulse Ox O2 Delivery O2 Flow Rate FiO2 10/23/18 11:50 20 97 Nasal Cannula 2.0 10/23/18 11:00 78 123/72 (89) 10/23/18 08:00 99.0 99.0 Physical Exam PHYSICAL EXAM GENERAL: NAD, Alert HEENT: PERRL, OC/OP NECK: Supple, no JVD, no LN LUNGS: Clear HEART: S1S2, no gallop, no murmur, incisions: D/C/I ABD: Soft, NT, no organomegaly, no rebound EXT: No edema, no cyanosis BOTTOM BRUSHER: Alert, oriented x 3, no focal neurologic deficit SKIN: No rash IV: ok Labs Lab Laboratory Tests Test 10/22/18 17:44 10/22/18 21:21 10/23/18 04:45 10/23/18 08:12 Glucose (Fingerstick) 154 mg/dL (70-99) 184 mg/dL (70-99) 190 mg/dL (70-99) White Blood Count 11.4 x10^3/uL (4.0-11.0) Red Blood Count 3.62 x10^6/uL (4.30-5.70) Hemoglobin 11.3 g/dL (13.0-17.5) Hematocrit 31.7 % (39.0-53.0) Mean Corpuscular Volume 87 fL (79-100) Mean Corpuscular Hemoglobin 31 pg (25-35) Mean Corpuscular Hemoglobin Concent 36 g/dL (31-37) Red Cell Distribution Width 13.3 % (11.5-14.5) Platelet Count 109 x10^3/uL (140-400) Sodium Level 138 mmol/L (136-145) Potassium Level 4.2 mmol/L (3.5-5.1) Chloride Level 103 mmol/L (98-107) Carbon Dioxide Level 27 mmol/L (21-32) Anion Gap 8 (6-14) Blood Urea Nitrogen 12 mg/dL (8-26) Creatinine 1.2 mg/dL (0.7-1.3) Estimated GFR (Cockcroft-Gault) 61.6 Glucose Level 196 mg/dL (70-99) Calcium Level 8.7 mg/dL (8.5-10.1) Magnesium Level 1.9 mg/dL (1.8-2.4) Test 10/23/18 11:46 Glucose (Fingerstick) 191 mg/dL (70-99) Objective Assessment POD#2, 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 Ambulating. Normotensive, SR. On room air. Hb 11.3, creat 1.2. CXR OK. Plan Plan of Care D/c pacing wires Amiodarone 200mg po BID for Afib prophylaxis-will stop before home discharge ASA, statin, b nury Analgesia Continue ambulation and pulm toilet Transfer to stepdown D/c home as early as tomorrow, if he continues to progress so well ALYSE NIEVES MD Oct 23, 2018 12:48
--- NOTE | 2018-10-23 12:55 | NUR ---
Report received from Nelda GALLARDO for transfer to 2nd floor. Pt states pain level at a 5. Patient in chair, call light in hand. Instructed to call for assistance with ambulation or needs. will continue to monitor.
--- NOTE | 2018-10-23 13:07 | PDOC ---
PROGRESS NOTES Chief Complaint Chief Complaint 1. s/.p CABG 10/21 1. NSTEMI 2. HTN: labile, new 3. HLP: new 4. DM2: new. hgba1c 8.7 5. Obesity 6. Suspect CKD History of Present Illness History of Present Illness s/p cabg POD # 2 Seen in ICU, SOme minor confusion today - almost fell geiger out, voiding freely CReat 1, 2 from 1.4 BS better - i needed to start long acting 10 units qhs And sulfonylurea with meals PLAN: CPM, so far doing good day POD 2 CABG LAbs PT/.OT FAll risk COnt levemir 10 and glyburide I helf off metformin for now, creat 1.,4 on admit, now 1,2 Vitals Vitals Vital Signs Date Time Temp Pulse Resp B/P (MAP) Pulse Ox O2 Delivery O2 Flow Rate FiO2 10/23/18 12:50 98.3 80 16 135/75 (95) 95 Room Air 98.3 10/23/18 11:50 2.0 Physical Exam Physical Exam GENERAL: NAD, Alert HEENT: PERRL, OC/OP NECK: Supple, no JVD, no LN LUNGS: Clear HEART: S1S2, no gallop, no murmur, incisions: D/C/I ABD: Soft, NT, no organomegaly, no rebound EXT: No edema, no cyanosis DIRECTOR AIRPORT: Alert, oriented x 3, no focal neurologic deficit SKIN: No rash IV: ok General: mild distress Heart: Regular rate Lungs: Clear Abdomen: Normal bowel sounds Extremities: No cyanosis, No edema Skin: No breakdown, No significant lesion Labs LABS Laboratory Tests Test 10/22/18 17:44 10/22/18 21:21 10/23/18 04:45 10/23/18 08:12 Glucose (Fingerstick) 154 mg/dL (70-99) 184 mg/dL (70-99) 190 mg/dL (70-99) White Blood Count 11.4 x10^3/uL (4.0-11.0) Red Blood Count 3.62 x10^6/uL (4.30-5.70) Hemoglobin 11.3 g/dL (13.0-17.5) Hematocrit 31.7 % (39.0-53.0) Mean Corpuscular Volume 87 fL (79-100) Mean Corpuscular Hemoglobin 31 pg (25-35) Mean Corpuscular Hemoglobin Concent 36 g/dL (31-37) Red Cell Distribution Width 13.3 % (11.5-14.5) Platelet Count 109 x10^3/uL (140-400) Sodium Level 138 mmol/L (136-145) Potassium Level 4.2 mmol/L (3.5-5.1) Chloride Level 103 mmol/L (98-107) Carbon Dioxide Level 27 mmol/L (21-32) Anion Gap 8 (6-14) Blood Urea Nitrogen 12 mg/dL (8-26) Creatinine 1.2 mg/dL (0.7-1.3) Estimated GFR (Cockcroft-Gault) 61.6 Glucose Level 196 mg/dL (70-99) Calcium Level 8.7 mg/dL (8.5-10.1) Magnesium Level 1.9 mg/dL (1.8-2.4) Test 10/23/18 11:46 Glucose (Fingerstick) 191 mg/dL (70-99) Review of Systems Review of Systems weak, wants some air, no cp, no soa, no abd pain, nv.d. Assessment and Plan Assessmemt and Plan Problems Medical Problems: (1) 3-vessel CAD Status: Chronic (2) ACS (acute coronary syndrome) Status: Acute (3) CKD (chronic kidney disease) Status: Chronic (4) Elevated troponin Status: Acute (5) HLD (hyperlipidemia) Status: Chronic (6) HTN (hypertension) Status: Chronic (7) Morbid obesity Status: Chronic (8) NSTEMI (non-ST elevated myocardial infarction) Status: Acute Comment Review of Relevant I have reviewed the following items rickie (where applicable) has been applied. Labs Laboratory Tests Test 10/21/18 13:12 10/21/18 14:00 10/21/18 14:08 10/21/18 16:39 O2 Saturation 96 % (92-99) 97 % (92-99) Arterial Blood pH 7.26 (7.35-7.45) 7.38 (7.35-7.45) Arterial Blood pCO2 at Patient Temp 46 mmHg (35-46) 42 mmHg (35-46) Arterial Blood pO2 at Patient Temp 95 mmHg (65-108) 99 mmHg (65-108) Arterial Blood HCO3 20 mmol/L (21-28) 25 mmol/L (21-28) Arterial Blood Base Excess -7 mmol/L (-3-3) -1 mmol/L (-3-3) Oxyhemoglobin 95.2 % Methemoglobin 0.5 % (0.0-1.9) Carbon Monoxide, Quantitative 0.5 % (0.0-1.9) FiO2 80% Glucose (Fingerstick) 124 mg/dL (70-99) White Blood Count 5.0 x10^3/uL (4.0-11.0) Red Blood Count 4.30 x10^6/uL (4.30-5.70) Hemoglobin 13.4 g/dL (13.0-17.5) Hematocrit 37.8 % (39.0-53.0) Mean Corpuscular Volume 88 fL (79-100) Mean Corpuscular Hemoglobin 31 pg (25-35) Mean Corpuscular Hemoglobin Concent 36 g/dL (31-37) Red Cell Distribution Width 12.9 % (11.5-14.5) Platelet Count 118 x10^3/uL (140-400) Prothrombin Time 16.2 SEC (11.7-14.0) Prothromb Time International Ratio 1.3 (0.8-1.1) Activated Partial Thromboplast Time 25 SEC (24-38) Sodium Level 145 mmol/L (136-145) Potassium Level 4.0 mmol/L (3.5-5.1) Chloride Level 111 mmol/L (98-107) Carbon Dioxide Level 24 mmol/L (21-32) Anion Gap 10 (6-14) Blood Urea Nitrogen 11 mg/dL (8-26) Creatinine 1.2 mg/dL (0.7-1.3) Estimated GFR (Cockcroft-Gault) 61.6 Glucose Level 131 mg/dL (70-99) Calcium Level 9.0 mg/dL (8.5-10.1) Magnesium Level 2.2 mg/dL (1.8-2.4) Arterial Blood pH (Temp corrected) 7.36 Arterial Blood pCO2 (Temp correct) 45 mmHg Arterial Blood pO2 (Temp corrected) 107 mmHg Test 10/21/18 17:35 10/21/18 17:36 10/21/18 21:05 10/22/18 02:05 White Blood Count 12.2 x10^3/uL (4.0-11.0) Red Blood Count 4.01 x10^6/uL (4.30-5.70) Hemoglobin 12.5 g/dL (13.0-17.5) Hematocrit 35.2 % (39.0-53.0) Mean Corpuscular Volume 88 fL (79-100) Mean Corpuscular Hemoglobin 31 pg (25-35) Mean Corpuscular Hemoglobin Concent 36 g/dL (31-37) Red Cell Distribution Width 13.4 % (11.5-14.5) Platelet Count 149 x10^3/uL (140-400) Sodium Level 144 mmol/L (136-145) Potassium Level 4.5 mmol/L (3.5-5.1) Chloride Level 110 mmol/L (98-107) Carbon Dioxide Level 24 mmol/L (21-32) Anion Gap 10 (6-14) Blood Urea Nitrogen 13 mg/dL (8-26) Creatinine 1.3 mg/dL (0.7-1.3) Estimated GFR (Cockcroft-Gault) 56.1 BUN/Creatinine Ratio 10 (6-20) Glucose Level 274 mg/dL (70-99) Calcium Level 8.8 mg/dL (8.5-10.1) Magnesium Level 1.9 mg/dL (1.8-2.4) Total Bilirubin 1.0 mg/dL (0.2-1.0) Aspartate Amino Transf (AST/SGOT) 57 U/L (15-37) Alanine Aminotransferase (ALT/SGPT) 28 U/L (16-63) Alkaline Phosphatase 47 U/L (46-116) Total Protein 5.1 g/dL (6.4-8.2) Albumin 3.6 g/dL (3.4-5.0) Albumin/Globulin Ratio 2.4 (1.0-1.7) Glucose (Fingerstick) 225 mg/dL (70-99) 291 mg/dL (70-99) 285 mg/dL (70-99) Test 10/22/18 03:20 10/22/18 04:28 10/22/18 05:42 10/22/18 05:45 Glucose (Fingerstick) 254 mg/dL (70-99) 220 mg/dL (70-99) 204 mg/dL (70-99) White Blood Count 11.4 x10^3/uL (4.0-11.0) Red Blood Count 3.76 x10^6/uL (4.30-5.70) Hemoglobin 11.7 g/dL (13.0-17.5) Hematocrit 33.2 % (39.0-53.0) Mean Corpuscular Volume 88 fL (79-100) Mean Corpuscular Hemoglobin 31 pg (25-35) Mean Corpuscular Hemoglobin Concent 35 g/dL (31-37) Red Cell Distribution Width 13.2 % (11.5-14.5) Platelet Count 134 x10^3/uL (140-400) Sodium Level 139 mmol/L (136-145) Potassium Level 4.8 mmol/L (3.5-5.1) Chloride Level 105 mmol/L (98-107) Carbon Dioxide Level 23 mmol/L (21-32) Anion Gap 11 (6-14) Blood Urea Nitrogen 13 mg/dL (8-26) Creatinine 1.4 mg/dL (0.7-1.3) Estimated GFR (Cockcroft-Gault) 51.5 Glucose Level 217 mg/dL (70-99) Calcium Level 8.8 mg/dL (8.5-10.1) Magnesium Level 2.0 mg/dL (1.8-2.4) Test 10/22/18 06:44 10/22/18 07:56 10/22/18 09:12 10/22/18 12:32 Glucose (Fingerstick) 226 mg/dL (70-99) 188 mg/dL (70-99) 176 mg/dL (70-99) 189 mg/dL (70-99) Test 10/22/18 12:45 10/22/18 17:44 10/22/18 21:21 10/23/18 04:45 White Blood Count 11.7 x10^3/uL (4.0-11.0) 11.4 x10^3/uL (4.0-11.0) Red Blood Count 3.78 x10^6/uL (4.30-5.70) 3.62 x10^6/uL (4.30-5.70) Hemoglobin 11.8 g/dL (13.0-17.5) 11.3 g/dL (13.0-17.5) Hematocrit 33.0 % (39.0-53.0) 31.7 % (39.0-53.0) Mean Corpuscular Volume 88 fL (79-100) 87 fL (79-100) Mean Corpuscular Hemoglobin 31 pg (25-35) 31 pg (25-35) Mean Corpuscular Hemoglobin Concent 36 g/dL (31-37) 36 g/dL (31-37) Red Cell Distribution Width 13.2 % (11.5-14.5) 13.3 % (11.5-14.5) Platelet Count 132 x10^3/uL (140-400) 109 x10^3/uL (140-400) Glucose (Fingerstick) 154 mg/dL (70-99) 184 mg/dL (70-99) Sodium Level 138 mmol/L (136-145) Potassium Level 4.2 mmol/L (3.5-5.1) Chloride Level 103 mmol/L (98-107) Carbon Dioxide Level 27 mmol/L (21-32) Anion Gap 8 (6-14) Blood Urea Nitrogen 12 mg/dL (8-26) Creatinine 1.2 mg/dL (0.7-1.3) Estimated GFR (Cockcroft-Gault) 61.6 Glucose Level 196 mg/dL (70-99) Calcium Level 8.7 mg/dL (8.5-10.1) Magnesium Level 1.9 mg/dL (1.8-2.4) Test 10/23/18 08:12 10/23/18 11:46 Glucose (Fingerstick) 190 mg/dL (70-99) 191 mg/dL (70-99) Laboratory Tests Test 10/22/18 17:44 10/22/18 21:21 10/23/18 04:45 10/23/18 08:12 Glucose (Fingerstick) 154 mg/dL (70-99) 184 mg/dL (70-99) 190 mg/dL (70-99) White Blood Count 11.4 x10^3/uL (4.0-11.0) Red Blood Count 3.62 x10^6/uL (4.30-5.70) Hemoglobin 11.3 g/dL (13.0-17.5) Hematocrit 31.7 % (39.0-53.0) Mean Corpuscular Volume 87 fL (79-100) Mean Corpuscular Hemoglobin 31 pg (25-35) Mean Corpuscular Hemoglobin Concent 36 g/dL (31-37) Red Cell Distribution Width 13.3 % (11.5-14.5) Platelet Count 109 x10^3/uL (140-400) Sodium Level 138 mmol/L (136-145) Potassium Level 4.2 mmol/L (3.5-5.1) Chloride Level 103 mmol/L (98-107) Carbon Dioxide Level 27 mmol/L (21-32) Anion Gap 8 (6-14) Blood Urea Nitrogen 12 mg/dL (8-26) Creatinine 1.2 mg/dL (0.7-1.3) Estimated GFR (Cockcroft-Gault) 61.6 Glucose Level 196 mg/dL (70-99) Calcium Level 8.7 mg/dL (8.5-10.1) Magnesium Level 1.9 mg/dL (1.8-2.4) Test 10/23/18 11:46 Glucose (Fingerstick) 191 mg/dL (70-99) Medications Current Medications Aspirin (Miri Aspirin) 325 mg 1X ONCE PO Last administered on 10/17/18at 19:02; Start 10/17/18 at 18:30; Stop 10/17/18 at 19:02; Status DC Enoxaparin Sodium (Lovenox 100mg Syringe) 90 mg 1X ONCE SQ Last administered on 10/17/18at 19:51; Start 10/17/18 at 19:15; Stop 10/17/18 at 19:23; Status DC Ondansetron HCl (Zofran) 4 mg PRN Q6HRS PRN IV NAUSEA/VOMITING; Start 10/17/18 at 20:45; Stop 10/21/18 at 13:24; Status DC Acetaminophen (Tylenol) 500 mg PRN Q6HRS PRN PO MILD PAIN / TEMP; Start 10/17/18 at 20:45; Stop 10/22/18 at 09:08; Status DC Acetaminophen/ Codeine Phosphate (Tylenol #3) 1 tab PRN Q6HRS PRN PO MODERATE PAIN Last administered on 10/18/18at 11:26; Start 10/17/18 at 20:45; Stop 10/23/18 at 09:12; Status DC Zolpidem Tartrate (Ambien) 5 mg PRN QHS PRN PO INSOMNIA Last administered on 10/18/18at 22:19; Start 10/17/18 at 20:45; Stop 10/19/18 at 08:30; Status DC Labetalol HCl (Normodyne Iv Push) 20 mg PRN Q2HR PRN IVP HYPERTENSION; Start 10/17/18 at 20:45 Sodium Chloride 1,000 ml @ 100 mls/hr 1X ONCE IV Last administered on 10/17/18at 23:32; Start 10/17/18 at 20:45; Stop 10/18/18 at 06:44; Status DC Iodixanol (Visipaque 320) 100 ml STK-MED ONCE .ROUTE ; Start 10/18/18 at 09:17; Stop 10/18/18 at 09:17; Status DC Lidocaine HCl (Lidocaine 1% 20ml Vial) 20 ml STK-MED ONCE .ROUTE ; Start 10/18/18 at 09:17; Stop 10/18/18 at 09:17; Status DC Heparin Sodium/ Sodium Chloride 1,000 ml @ As Directed STK-MED ONCE .ROUTE ; Start 10/18/18 at 09:17; Stop 10/18/18 at 09:17; Status DC Fentanyl Citrate (Fentanyl 2ml Vial) 100 mcg STK-MED ONCE .ROUTE ; Start 10/18/18 at 09:24; Stop 10/18/18 at 09:24; Status DC Midazolam HCl (Versed) 5 mg STK-MED ONCE .ROUTE ; Start 10/18/18 at 09:24; Stop 10/18/18 at 09:24; Status DC Heparin Sodium (Porcine) (Heparin Sodium) 10,000 unit STK-MED ONCE .ROUTE ; Start 10/18/18 at 09:26; Stop 10/18/18 at 09:26; Status DC Verapamil HCl (Verapamil) 5 mg STK-MED ONCE .ROUTE ; Start 10/18/18 at 09:26; Stop 10/18/18 at 09:26; Status DC Nitroglycerin (Nitroglycerin) 200 mcg STK-MED ONCE .ROUTE ; Start 10/18/18 at 09:26; Stop 10/18/18 at 09:26; Status DC Iodixanol (Visipaque 320) 100 ml STK-MED ONCE .ROUTE ; Start 10/18/18 at 09:53; Stop 10/18/18 at 09:53; Status DC Nitroglycerin (Nitroglycerin) 200 mcg 1X ONCE IART Last administered on 10/18/18at 10:50; Start 10/18/18 at 10:15; Stop 10/18/18 at 10:21; Status DC Verapamil HCl (Verapamil) 2.5 mg 1X ONCE IART Last administered on 10/18/18at 10:50; Start 10/18/18 at 10:15; Stop 10/18/18 at 10:21; Status DC Heparin Sodium (Porcine) (Heparin Sodium) 2,500 unit 1X ONCE IART Last administered on 10/18/18at 10:50; Start 10/18/18 at 10:15; Stop 10/18/18 at 10:21; Status DC Heparin Sodium/ Sodium Chloride (HEPARIN for ARTERIAL LINE FLUSH) 1,000 unit 1X ONCE IART Last administered on 10/18/18at 10:50; Start 10/18/18 at 10:15; Stop 10/18/18 at 10:21; Status DC Heparin Sodium/ Sodium Chloride (HEPARIN for ARTERIAL LINE FLUSH) 1,000 unit 1X ONCE IART Last administered on 10/18/18at 10:50; Start 10/18/18 at 10:15; Stop 10/18/18 at 10:21; Status DC Midazolam HCl (Versed) 5 mg 1X ONCE IV Last administered on 10/18/18at 10:50; Start 10/18/18 at 10:15; Stop 10/18/18 at 10:21; Status DC Fentanyl Citrate (Fentanyl 2ml Vial) 100 mcg 1X ONCE IV Last administered on 10/18/18at 10:50; Start 10/18/18 at 10:15; Stop 10/18/18 at 10:21; Status DC Lidocaine HCl (Lidocaine 1% 20ml Vial) 20 ml 1X ONCE INJ Last administered on 10/18/18at 10:50; Start 10/18/18 at 10:15; Stop 10/18/18 at 10:21; Status DC Iodixanol (Visipaque 320) 100 ml 1X ONCE IART Last administered on 10/18/18at 10:50; Start 10/18/18 at 10:15; Stop 10/18/18 at 10:21; Status DC Info (CONTRAST GIVEN -- Rx MONITORING) 1 each PRN DAILY PRN MC SEE COMMENTS; Start 10/18/18 at 10:30; Stop 10/20/18 at 10:29; Status DC Sodium Chloride (Normal Saline Flush) 3 ml QSHIFT PRN IV AFTER MEDS AND BLOOD DRAWS; Start 10/18/18 at 11:00; Stop 10/22/18 at 09:07; Status DC Sodium Chloride 1,000 ml @ 75 mls/hr [id number] IV Last administered on 10/18/18at 11:20; Start 10/18/18 at 11:30; Stop 10/18/18 at 11:31; Status DC Nitroglycerin (Nitrostat) 0.4 mg PRN Q5MIN PRN SL CHEST PAIN; Start 10/18/18 at 11:00 Metoprolol Tartrate (Lopressor) 12.5 mg BID PO Last administered on 10/18/18at 11:26; Start 10/18/18 at 11:00; Stop 10/18/18 at 15:10; Status DC Atorvastatin Calcium (Lipitor) 20 mg QHS PO ; Start 10/18/18 at 21:00; Stop 10/18/18 at 15:07; Status DC Heparin Sodium/ Dextrose 500 ml @ 0 mls/hr CONT PRN PRN IV SEE PROTOCOL Last administered on 10/21/18at 06:00; Start 10/18/18 at 11:00; Stop 10/22/18 at 11:36; Status DC Heparin Sodium (Porcine) (Heparin Sodium) 2,300 unit PRN Q6HRS PRN IV FOR UFH LEVEL LESS THAN 0.2; Start 10/18/18 at 11:00; Stop 10/22/18 at 11:36; Status DC Cefazolin Sodium/ Dextrose 50 ml @ 100 mls/hr 1X PREOP PRN IV PRIOR TO PROCEDURE; Start 10/19/18 at 06:00; Stop 10/19/18 at 14:00; Status DC Atorvastatin Calcium (Lipitor) 40 mg QHS PO Last administered on 10/22/18at 21:23; Start 10/18/18 at 21:00 Metoprolol Tartrate (Lopressor) 25 mg BID PO Last administered on 10/20/18 20:37; Start 10/18/18 at 21:00; Stop 10/21/18 at 13:27; Status DC Aspirin (Ecotrin) 81 mg [id number] PO Last administered on 10/20/18at 08:54; Start 10/18/18 at 15:15; Stop 10/21/18 at 13:26; Status DC Acetaminophen/ Hydrocodone Bitart (Lortab 7.5/325) 1 tab PRN Q6HRS PRN PO PAIN SEVERE Last administered on 10/18/18at 16:49; Start 10/18/18 at 16:15; Stop 10/23/18 at 09:12; Status DC Alprazolam (Xanax) 0.5 mg Q6HRS PRN PO ANXIETY / AGITATION Last administered on 10/22/18at 17:46; Start 10/18/18 at 19:15 Morphine Sulfate (Morphine Sulfate) 2 mg PRN Q2HR PRN IV PAIN Last administered on 10/20/18at 18:46; Start 10/18/18 at 20:00; Stop 10/22/18 at 09:09; Status DC Zolpidem Tartrate (Ambien) 5 mg PRN QHS PRN PO INSOMNIA Last administered on 10/22/18at 23:19; Start 10/19/18 at 08:30 Metformin HCl (Glucophage) 500 mg BIDWMEALS PO ; Start 10/19/18 at 17:00; Stop 10/20/18 at 08:55; Status DC Glyburide (Diabeta) 1.25 mg BIDWMEALS PO Last administered on 10/20/18at 08:54; Start 10/19/18 at 17:00; Stop 10/20/18 at 08:55; Status DC Insulin Human Lispro (HumaLOG) 0-9 UNITS TIDWMEALS SQ Last administered on 10/23/18at 11:50; Start 10/19/18 at 12:00 Dextrose (Dextrose 50%-Water Syringe) 12.5 gm PRN Q15MIN PRN IV SEE COMMENTS; Start 10/19/18 at 11:30; Stop 10/22/18 at 09:09; Status DC Dextrose 250 ml PRN Q15MIN PRN IV SEE COMMENTS; Start 10/19/18 at 11:30; Status UNV Nitroglycerin (Nitro-Bid Oint) 0.5 inch Q6HRS TP ; Start 10/19/18 at 18:00; Stop 10/23/18 at 09:03; Status DC Info (Anti-Coagulation Monitoring By Pharmacy) 1 each PRN DAILY PRN MC SEE COMMENTS Last administered on 10/20/18at 15:10; Start 10/19/18 at 13:45; Stop 10/22/18 at 11:36; Status DC Docusate Sodium (Colace) 100 mg BID PO Last administered on 10/23/18at 08:19; Start 10/19/18 at 21:00 Polyethylene Glycol (miraLAX PACKET) 17 gm DAILY PO Last administered on 10/23/18at 08:19; Start 10/19/18 at 17:00 Magnesium Hydroxide (Milk Of Magnesia) 2,400 mg PRN DAILY PRN PO CONSTIPATION; Start 10/19/18 at 17:00 Magnesium Hydroxide (Milk Of Magnesia) 2,400 mg 1X ONCE PO Last administered on 10/19/18at 17:52; Start 10/19/18 at 17:00; Stop 10/19/18 at 17:02; Status DC Nitroglycerin/ Dextrose 250 ml @ 1.5 mls/hr CONT PRN IV SEE I/O RECORD Last administered on 10/19/18at 18:37; Start 10/19/18 at 18:30; Stop 10/22/18 at 09:09; Status DC Glyburide (Diabeta) 2.5 mg BIDWMEALS PO ; Start 10/20/18 at 09:00; Stop 10/20/18 at 09:10; Status DC Glyburide (Diabeta) 2.5 mg BIDWMEALS PO Last administered on 10/23/18at 08:19; Start 10/20/18 at 17:00 Glyburide (Diabeta) 1.25 mg 1X ONCE PO Last administered on 10/20/18at 09:26; Start 10/20/18 at 09:30; Stop 10/20/18 at 09:31; Status DC Heparin Sodium (Porcine) 54613 unit/Ringer's Solution 1,020 ml @ 1,020 mls/hr 1X PERIOP@0600 ONCE IRR Last administered on 10/21/18at 10:24; Start 10/21/18 at 06:00; Stop 10/21/18 at 06:59; Status DC Potassium Chloride 70 meq/ Sodium Bicarbonate 12.5 meq/Lidocaine HCl 24 ml/Parenteral Electrolytes 571.5 ml @ 571.5 mls/ hr 1X PERIOP@0600 ONCE IRR ; Start 10/21/18 at 06:00; Stop 10/21/18 at 06:59; Status DC Potassium Chloride 15 meq/ Sodium Bicarbonate 12.5 meq/Parenteral Electrolytes 520 ml @ 520 mls/hr 1X PERIOP@0600 ONCE IRR ; Start 10/21/18 at 06:00; Stop 10/21/18 at 06:59; Status DC Cefazolin Sodium 1 gm/Sodium Chloride 500 ml @ 500 mls/hr 1X ONCE IRR Last administered on 10/21/18at 10:24; Start 10/21/18 at 06:00; Stop 10/21/18 at 06:59; Status DC Calcium Carbonate/ Glycine (Tums) 500 mg PRN Q3HRS PRN PO INDIGESTION Last administered on 10/20/18at 20:37; Start 10/20/18 at 20:15 Phenylephrine HCl (PHENYLEPHRINE in 0.9% NACL PF) 1 mg STK-MED ONCE IV ; Start 10/21/18 at 06:28; Stop 10/21/18 at 06:28; Status DC Etomidate (Amidate) 20 mg STK-MED ONCE IV ; Start 10/21/18 at 06:28; Stop 10/21/18 at 06:28; Status DC Aminocaproic Acid (Amicar) 5,000 mg STK-MED ONCE IV ; Start 10/21/18 at 06:28; Stop 10/21/18 at 06:28; Status DC Nitroglycerin/ Dextrose 0 ml @ As Directed STK-MED ONCE IV ; Start 10/21/18 at 06:28; Stop 10/21/18 at 06:28; Status DC Rocuronium [place] (Zemuron) 100 mg STK-MED ONCE .ROUTE ; Start 10/21/18 at 06:28; Stop 10/21/18 at 06:28; Status DC Heparin Sodium (Porcine) 30,000 unit STK-MED ONCE .ROUTE ; Start 10/21/18 at 06:29; Stop 10/21/18 at 06:29; Status DC Ondansetron HCl (Zofran) 4 mg PRN Q6HRS PRN IV NAUSEA/VOMITING; Start 10/21/18 at 06:30; Stop 10/22/18 at 06:29; Status DC Fentanyl Citrate (Fentanyl 2ml Vial) 25 mcg PRN Q5MIN PRN IV MILD PAIN 1-3; Start 10/21/18 at 06:30; Stop 10/22/18 at 06:29; Status DC Fentanyl Citrate (Fentanyl 2ml Vial) 50 mcg PRN Q5MIN PRN IV MODERATE TO SEVERE PAIN; Start 10/21/18 at 06:30; Stop 10/22/18 at 06:29; Status DC Morphine Sulfate (Morphine Sulfate) 1 mg PRN Q10MIN PRN IV SEVERE PAIN 7-10; Start 10/21/18 at 06:30; Stop 10/22/18 at 06:29; Status DC Ringer's Solution 1,000 ml @ 30 mls/hr Q24H IV ; Start 10/21/18 at 06:30; Stop 10/21/18 at 18:29; Status DC Hydromorphone HCl (Dilaudid) 0.5 mg PRN Q10MIN PRN IV SEV PAIN, Second choice; Start 10/21/18 at 06:30; Stop 10/22/18 at 06:29; Status DC Prochlorperazine Edisylate (Compazine) 5 mg PACU PRN PRN IV NAUSEA, MRX1; Start 10/21/18 at 06:30; Stop 10/22/18 at 06:29; Status DC Nitroglycerin/ Dextrose 250 ml @ As Directed STK-MED ONCE IV ; Start 10/21/18 a t 06:42; Stop 10/21/18 at 06:43; Status DC Sufentanil Citrate (Sufenta) 250 mcg STK-MED ONCE .ROUTE ; Start 10/21/18 at 06:45; Stop 10/21/18 at 06:46; Status DC Midazolam HCl (Versed) 2 mg STK-MED ONCE .ROUTE ; Start 10/21/18 at 06:45; Stop 10/21/18 at 06:46; Status DC Vancomycin HCl (VANCO for OR ONLY) 10 gm STK-MED ONCE .ROUTE Last administered on 10/21/18at 10:19; Start 10/21/18 at 06:58; Stop 10/21/18 at 06:59; Status DC Cellulose (Surgicel Hemostat 4x8) 1 each STK-MED ONCE .ROUTE Last administered on 10/21/18at 10:19; Start 10/21/18 at 06:59; Stop 10/21/18 at 06:59; Status DC Papaverine HCl 60 mg STK-MED ONCE .ROUTE Last administered on 10/21/18at 10:24; Start 10/21/18 at 06:59; Stop 10/21/18 at 06:59; Status DC Sodium Chloride (SODIUM CHLORIDE 20ml) 20 ml STK-MED ONCE IJ Last administered on 10/21/18at 10:19; Start 10/21/18 at 06:59; Stop 10/21/18 at 06:59; Status DC Sodium Chloride (SODIUM CHLORIDE 20ml) 20 ml STK-MED ONCE IJ Last administered on 10/21/18at 10:19; Start 10/21/18 at 06:59; Stop 10/21/18 at 07:00; Status DC Sodium Chloride (SODIUM CHLORIDE 20ml) 20 ml STK-MED ONCE IJ Last administered on 10/21/18at 10:19; Start 10/21/18 at 06:59; Stop 10/21/18 at 07:00; Status DC Insulin Human Regular 150 unit/ Sodium Chloride 151.5 ml @ 9.292 mls/ hr CONT PRN IV SEE I/O RECORD; Start 10/21/18 at 07:15; Stop 10/22/18 at 09:09; Status DC Aspirin (Aspirin Rectal Supp) 300 mg 1X ONCE [place] Last administered on 10/21/18at 13:12; Start 10/21/18 at 07:30; Stop 10/21/18 at 07:31; Status DC Cefazolin Sodium/ Dextrose 50 ml @ 100 mls/hr 1X PREOP PRN IV PRIOR TO PROCEDURE; Start 10/22/18 at 06:00; Stop 10/22/18 at 18:00; Status DC Heparin Sodium (Porcine) (Heparin Sodium) 10,000 unit STK-MED ONCE .ROUTE ; Start 10/21/18 at 09:06; Stop 10/21/18 at 09:06; Status DC Rocuronium [place] (Zemuron) 50 mg STK-MED ONCE .ROUTE ; Start 10/21/18 at 09:39; Stop 10/21/18 at 09:39; Status DC Cefazolin Sodium (Ancef) 1 gm STK-MED ONCE .ROUTE ; Start 10/21/18 at 09:40; Stop 10/21/18 at 09:41; Status DC Cefazolin Sodium (Ancef) 1 gm STK-MED ONCE .ROUTE ; Start 10/21/18 at 09:40; Stop 10/21/18 at 09:41; Status DC Insulin Glargine (Lantus Syringe) 15 unit QHS SQ Last administered on 10/22/18at 21:23; Start 10/21/18 at 21:00 Midazolam HCl (Versed) 2 mg STK-MED ONCE .ROUTE ; Start 10/21/18 at 10:12; Stop 10/21/18 at 10:12; Status DC Albumin Human 500 ml @ As Directed STK-MED ONCE IV ; Start 10/21/18 at 12:03; Stop 10/21/18 at 12:03; Status DC Lidocaine HCl (Lidocaine Pf 2% Vial) 5 ml STK-MED ONCE .ROUTE ; Start 10/21/18 at 12:08; Stop 10/21/18 at 12:08; Status DC Magnesium Sulfate 5 gm STK-MED ONCE .ROUTE ; Start 10/21/18 at 12:08; Stop 10/21/18 at 12:08; Status DC Heparin Sodium (Porcine) 30,000 unit STK-MED ONCE .ROUTE ; Start 10/21/18 at 12:08; Stop 10/21/18 at 12:08; Status DC Mannitol (Mannitol) 12.5 g STK-MED ONCE .ROUTE ; Start 10/21/18 at 12:08; Stop 10/21/18 at 12:08; Status DC Albumin Human 100 ml @ As Directed STK-MED ONCE IV ; Start 10/21/18 at 12:08; Stop 10/21/18 at 12:08; Status DC Calcium Chloride (Calcium Chloride) 1,000 mg STK-MED ONCE .ROUTE ; Start 10/21/18 at 12:08; Stop 10/21/18 at 12:08; Status DC Rocuronium [place] (Zemuron) 50 mg STK-MED ONCE .ROUTE ; Start 10/21/18 at 12:47; Stop 10/21/18 at 12:47; Status DC Fentanyl Citrate (Fentanyl 2ml Vial) 100 mcg STK-MED ONCE .ROUTE ; Start 10/21/18 at 13:00; Stop 10/21/18 at 13:00; Status DC Sodium Chloride (Normal Saline Flush) 3 ml PRN Q12HR PRN IV AFTER MEDS AND BLOOD DRAWS; Start 10/21/18 at 13:15 Ringer's Solution 1,000 ml @ 30 mls/hr Q24H IV Last administered on 10/22/18at 13:13; Start 10/21/18 at 13:12; Stop 10/23/18 at 11:34; Status DC Albumin Human 250 ml @ 500 mls/hr PRN Q4HRS PRN IV SEE COMMENTS Last administered on 10/21/18at 18:29; Start 10/21/18 at 13:15 Insulin Human Regular 150 unit/ Sodium Chloride 151.5 ml @ 0 mls/hr CONT PRN PRN IV PER PROTOCOL Last administered on 10/22/18at 02:29; Start 10/21/18 at 13:15; Stop 10/23/18 at 09:03; Status DC Dextrose (Dextrose 50%-Water Syringe) 25 gm PRN Q15MIN PRN IV LOW BLOOD SUGAR; Start 10/21/18 at 13:15 Nitroglycerin/ Dextrose 250 ml @ 0 mls/hr CONT PRN PRN IV POST CV SURGERY; Start 10/21/18 at 13:15 Phenylephrine HCl 20 mg/Sodium Chloride 252 ml @ 0 mls/hr CONT PRN PRN IV HYPOTENSION; Start 10/21/18 at 13:15 Amiodarone HCl 150 mg/Dextrose 103 ml @ 600 mls/hr 1X ONCE IV Last administered on 10/21/18at 15:59; Start 10/21/18 at 13:15; Stop 10/21/18 at 13:29; Status DC Amiodarone HCl 150 mg/Dextrose 103 ml @ 200 mls/hr 1X PRN PRN IV FOR AFIB; Start 10/21/18 at 13:15 Amiodarone HCl 900 mg/Dextrose 518 ml @ 0 mls/hr CONT PRN PRN IV AFIB Last administered on 10/21/18at 15:59; Start 10/21/18 at 13:15 Info (KCl Per Protocol) 1 ea CONT PRN PRN MC SEE COMMENTS; Start 10/21/18 at 13:15; Stop 10/23/18 at 09:03; Status DC Magnesium Sulfate/ Dextrose 100 ml @ 100 mls/hr PRN DAILY PRN IV FOR MAG < 2.2 Last administered on 10/23/18at 08:19; Start 10/21/18 at 13:15 Famotidine (Pepcid Vial) 20 mg BID IVP Last administered on 10/23/18at 08:19; Start 10/21/18 at 21:00; Stop 10/23/18 at 09:03; Status DC Ondansetron HCl (Zofran) 4 mg PRN Q4HRS PRN IV NAUSEA/VOMITING, 1st CHOICE; Start 10/21/18 at 13:15 Prochlorperazine Edisylate (Compazine) 10 mg PRN Q6HRS PRN IV NAUSEA/VOMITING, 2nd CHOICE; Start 10/21/18 at 13:15 Metoclopramide HCl (Reglan Vial) 10 mg PRN Q6HRS PRN IV NAUSEA/VOMITING, 3rd CHOICE; Start 10/21/18 at 13:15 Morphine Sulfate (Morphine Sulfate) 2 mg PRN Q1HR PRN IV MODERATE PAIN Last administered on 10/22/18at 16:27; Start 10/21/18 at 13:15 Morphine Sulfate (Morphine Sulfate) 4 mg PRN Q1HR PRN IV SEVERE PAIN Last administered on 10/22/18at 09:33; Start 10/21/18 at 13:15 Acetaminophen (Tylenol) 650 mg PRN Q4HRS PRN PO TEMP > 101'F or MILD PAIN Last administered on 10/23/18at 08:19; Start 10/21/18 at 13:15 Acetaminophen (Tylenol Supp) 650 mg PRN Q4HRS PRN W[place] TEMP > 101'F or MILD PAIN; Start 10/21/18 at 13:15; Stop 10/23/18 at 09:12; Status DC Meperidine HCl (Demerol) 12.5 mg PRN Q15MIN PRN IV SHIVERING; Start 10/21/18 at 13:15 Senna/Docusate Sodium (Senna Plus) 1 tab BID PO Last administered on 10/23/18at 0 8:19; Start 10/21/18 at 21:00 Bisacodyl (Dulcolax Supp) 10 mg PRN DAILY PRN [place] NO BOWEL MOVEMENT; Start 10/21/18 at 13:15 Chlorhexidine Gluconate (Peridex) 15 ml BID MM ; Start 10/22/18 at 09:00; Stop 10/23/18 at 09:03; Status DC Aspirin (Ecotrin) 325 mg DAILYWBKFT PO Last administered on 10/23/18at 08:19; Start 10/22/18 at 08:00 Aspirin (Aspirin Rectal Supp) 300 mg PRN DAILY PRN [place] IF UNABLE TO TAKE PO; Start 10/22/18 at 08:00; Stop 10/23/18 at 09:12; Status DC Albuterol Sulfate (Ventolin Neb Soln) 2.5 mg PRN Q4HRS PRN NEB SHORTNESS OF BREATH; Start 10/21/18 at 13:15 Metoprolol Tartrate (Lopressor) 25 mg BID PO Last administered on 10/23/18at 08:19; Start 10/22/18 at 09:00 Nicardipine HCl 50 mg/Sodium Chloride 250 ml @ 0 mls/hr CONT PRN PRN IV PER PROTOCOL; Start 10/21/18 at 13:15 Oxycodone HCl (Roxicodone) 5 mg PRN Q4HRS PRN PO MODERATE PAIN Last administered on 10/22/18at 14:26; Start 10/21/18 at 13:15 Oxycodone HCl (Roxicodone) 10 mg PRN Q4HRS PRN PO SEVERE PAIN Last administered on 10/23/18at 11:50; Start 10/21/18 at 13:15 Dextrose 250 ml PRN Q15MIN PRN IV LOW BLOOD SUGAR; Start 10/21/18 at 13:15 Cefazolin Sodium/ Dextrose 50 ml @ 100 mls/hr Q8H IV Last administered on 10/23/18at 00:47; Start 10/21/18 at 16:30; Stop 10/23/18 at 00:59; Status DC Sodium Bicarbonate (Sodium Bicarb Adult 8.4% Syr) 50 meq 1X ONCE IV Last administered on 10/21/18at 15:59; Start 10/21/18 at 15:00; Stop 10/21/18 at 15:07; Status DC Potassium Chloride/Water 50 ml @ 50 mls/hr 1X ONCE IV ; Start 10/21/18 at 18:00; Stop 10/21/18 at 18:39; Status DC Amiodarone HCl (Cordarone) 200 mg BID PO Last administered on 10/23/18at 08:19; Start 10/22/18 at 14:00 Famotidine (Pepcid) 20 mg BID PO ; Start 10/23/18 at 21:00 Vitals/I & O Vital Sign - Last 24 Hours 10/22/18 10/22/18 10/22/18 10/22/18 13:12 14:00 14:26 14:26 Pulse 76 77 Resp 18 B/P (MAP) 121/65 (83) 121/65 Pulse Ox 100 100 100 O2 Delivery Nasal Cannula Nasal Cannula Nasal Cannula O2 Flow Rate 2.0 2.0 2.0 10/22/18 10/22/18 10/22/18 10/22/18 15:00 16:00 16:00 16:13 Temp 98.6 98.6 Pulse 78 79 Resp 18 18 B/P (MAP) 140/72 (94) 143/75 (97) Pulse Ox 100 99 100 O2 Delivery Room Air Nasal Cannula Room Air Room Air O2 Flow Rate 2.0 10/22/18 10/22/18 10/22/18 10/22/18 16:27 17:00 17:50 18:00 Pulse 81 82 Resp 18 18 B/P (MAP) 130/70 (90) 153/99 (117) Pulse Ox 100 100 100 100 O2 Delivery Nasal Cannula Room Air Nasal Cannula Room Air O2 Flow Rate 2.0 2.0 10/22/18 10/22/18 10/22/18 10/22/18 19:00 20:00 20:02 21:00 Temp 98.7 98.7 Pulse 81 82 81 Resp 16 18 24 19 B/P (MAP) 142/86 (104) 137/64 (88) 148/62 (90) Pulse Ox 100 O2 Delivery Room Air Room Air Room Air Room Air 10/22/18 10/22/18 10/22/18 10/22/18 21:23 21:23 21:23 22:00 Pulse 84 84 78 Resp 18 16 B/P (MAP) 148/62 148/62 138/59 (85) O2 Delivery Room Air Room Air 10/22/18 10/23/18 10/23/18 9/2/19 23:00 00:00 01:00 02:00 Temp 99.2 99.2 Pulse 80 79 79 79 Resp 17 15 16 14 B/P (MAP) 109/49 (69) 108/63 (78) 132/58 (82) 106/58 (74) Pulse Ox 100 O2 Delivery Room Air Room Air Room Air Room Air 10/23/18 10/23/18 10/23/18 10/23/18 03:00 04:00 05:00 06:00 Temp 99.0 99.0 Pulse 80 80 80 82 Resp 18 19 17 16 B/P (MAP) 125/63 (83) 129/45 (73) 128/59 (82) 125/62 (83) O2 Delivery Room Air Room Air Room Air Room Air 10/23/18 10/23/18 10/23/18 10/23/18 07:00 08:00 08:00 08:19 Temp 99.6 99.0 99.6 99.0 Pulse 83 82 83 Resp 16 16 B/P (MAP) 130/65 (86) 144/75 (98) 130/65 Pulse Ox 89 98 O2 Delivery Room Air Nasal Cannula Nasal Cannula O2 Flow Rate 2.0 2.0 10/23/18 10/23/18 10/23/18 10/23/18 08:19 09:00 10:00 11:00 Pulse 83 84 78 78 Resp 16 16 20 B/P (MAP) 130/65 136/72 (93) 123/73 (90) 123/72 (89) Pulse Ox 96 94 97 O2 Delivery Room Air Room Air Nasal Cannula O2 Flow Rate 2.0 10/23/18 10/23/18 11:50 12:50 Temp 98.3 98.3 Pulse 80 Resp 20 16 B/P (MAP) 135/75 (95) Pulse Ox 97 95 O2 Delivery Nasal Cannula Room Air O2 Flow Rate 2.0 Intake and Output 10/22/18 10/22/18 10/23/18 15:00 23:00 07:00 Intake Total 1400 ml 1500 ml 2094.9 ml Output Total 740 ml 485 ml 705 ml Balance 660 ml 1015 ml 1389.9 ml LIZA WILLETT MD Oct 23, 2018 13:07
[2018-10-23] MEDS: ATORVASTATIN CALCIUM 40 MG TABLET. PO SCH (20:32)
[2018-10-23] MEDS: FAMOTIDINE 20 MG TABLET. PO SCH (20:40)
[2018-10-23] MEDS: INSULIN GLARGINE SYRINGE. SQ SCH (20:42)
[2018-10-23] MEDS: ZOLPIDEM 5 MG TABLET. PO PRN (22:42)
[2018-10-24 05:35] LABS: HEMATOCRIT 30.5 % (39.0-53.0); RED BLOOD COUNT 3.47 x10^6/uL (4.30-5.70); RED CELL DISTRIBUTION WIDTH 13.2 % (11.5-14.5); WHITE BLOOD COUNT 10.4 x10^3/uL (4.0-11.0)
[2018-10-24 05:49] LABS: CALCIUM 8.8 mg/dL (8.5-10.1); CREATININE 1.1 mg/dL (0.7-1.3); GFR 68.1; MAGNESIUM 2.2 mg/dL (1.8-2.4); POTASSIUM 4.2 mmol/L (3.5-5.1)
[2018-10-24 07:00] VITALS: BP 128/60
[2018-10-24] MEDS: INSULIN LISPRO 300 UNITS/3 ML VIAL. SQ SCH (08:00)
--- NOTE | 2018-10-24 08:26 | RAD ---
Chest radiograph 10/24/2018 7:00 AM INDICATION: Postoperative COMPARISON: 10/23/2018 TECHNIQUE: Portable upright frontal view of the chest is provided. FINDINGS: The cardiomediastinal silhouette is similar in appearance. Median sternotomy changes are present. Similar elevation the right hemidiaphragm. No significant pleural effusions, pulmonary vascular congestion or pneumothorax. IMPRESSION: Stable postoperative changes without focal airspace consolidation. Electronically signed by: Arpita Hernández MD (10/24/2018 8:23 AM) [facility]
[2018-10-24] MEDS: POLYETHYLENE GLYCOL 3350 17 GM PACKET. PO SCH (08:45)
[2018-10-24] MEDS: METOPROLOL TART IMMED RELEASE 25 MG TABLET. PO SCH (08:46)
[2018-10-24] MEDS: AMIODARONE HCL 200 MG TABLET. PO SCH (08:46)
[2018-10-24] MEDS: FAMOTIDINE 20 MG TABLET. PO SCH (08:46)
[2018-10-24] MEDS: DOCUSATE SODIUM 100 MG CAPSULE. PO SCH (08:46)
[2018-10-24] MEDS: SENNOSIDES/DOCUSATE 8.6/50MG TABLET. PO SCH (08:47)
[2018-10-24] MEDS: ASPIRIN ENTERIC COATED 325 MG TABLET.DR. PO SCH (08:47)
[2018-10-24 11:00] VITALS: BP 149/70
[2018-10-24] MEDS: oxyCODONE IR 5 MG TABLET PO PRN (11:46)
[2018-10-24] MEDS: glyBURIDE 1.25 MG TABLET PO SCH (11:47)
[2018-10-24 12:11] LABS: ART BE ISTAT -1 mmol/L (0-3); ART GLUC ISTAT 114 mg/dL (70-99); ART HCO3 ISTAT 25 mmol/L (21-28); ART HCT ISTAT 31 % (37-52); ART HGB ISTAT 10.5 g/dL (14-18); ART ION CA ISTAT 1.58 mmol/L (1.13-1.32); ART NA ISTAT 140 mmol/L (135-145); ART PCO2 ISTAT 45 mmHg (35-45); ART PH ISTAT 7.34 (7.35-7.45); ART PO2 ISTAT 189 mmHg (75-100); ART SAT O2 SAT 100 % (95-99); ART TCO2 ISTAT 26 mmol/L (21-32)
[2018-10-24 12:11] LABS: ART BE ISTAT 2 mmol/L (0-3); ART GLUC ISTAT 121 mg/dL (70-99); ART HCO3 ISTAT 25 mmol/L (21-28); ART HCT ISTAT 29 % (37-52); ART HGB ISTAT 9.9 g/dL (14-18); ART ION CA ISTAT 1.02 mmol/L (1.13-1.32); ART K ISTAT 4.8 mmol/L (3.5-5.0); ART NA ISTAT 138 mmol/L (135-145); ART PCO2 ISTAT 33 mmHg (35-45); ART PH ISTAT 7.49 (7.35-7.45); ART PO2 ISTAT 320 mmHg (75-100); ART SAT O2 SAT 100 % (95-99); ART TCO2 ISTAT 26 mmol/L (21-32)
[2018-10-24 12:11] LABS: ART BE ISTAT -2 mmol/L (0-3); ART GLUC ISTAT 161 mg/dL (70-99); ART HCO3 ISTAT 24 mmol/L (21-28); ART HCT ISTAT 41 % (37-52); ART HGB ISTAT 13.9 g/dL (14-18); ART ION CA ISTAT 1.28 mmol/L (1.13-1.32); ART K ISTAT 4.4 mmol/L (3.5-5.0); ART NA ISTAT 139 mmol/L (135-145); ART PCO2 ISTAT 46 mmHg (35-45); ART PH ISTAT 7.33 (7.35-7.45); ART PO2 ISTAT 307 mmHg (75-100); ART SAT O2 SAT 100 % (95-99); ART TCO2 ISTAT 25 mmol/L (21-32)
[2018-10-24 12:11] LABS: ART BE ISTAT 1 mmol/L (0-3); ART GLUC ISTAT 125 mg/dL (70-99); ART HCO3 ISTAT 26 mmol/L (21-28); ART HCT ISTAT 33 % (37-52); ART HGB ISTAT 11.2 g/dL (14-18); ART ION CA ISTAT 1.04 mmol/L (1.13-1.32); ART K ISTAT 4.3 mmol/L (3.5-5.0); ART NA ISTAT 140 mmol/L (135-145); ART PCO2 ISTAT 46 mmHg (35-45); ART PH ISTAT 7.37 (7.35-7.45); ART PO2 ISTAT 543 mmHg (75-100); ART SAT O2 SAT 100 % (95-99); ART TCO2 ISTAT 28 mmol/L (21-32)
[2018-10-24 12:12] LABS: ART BE ISTAT -3 mmol/L (0-3); ART GLUC ISTAT 103 mg/dL (70-99); ART HCO3 ISTAT 23 mmol/L (21-28); ART HCT ISTAT 33 % (37-52); ART HGB ISTAT 11.2 g/dL (14-18); ART ION CA ISTAT 1.42 mmol/L (1.13-1.32); ART K ISTAT 3.8 mmol/L (3.5-5.0); ART NA ISTAT 141 mmol/L (135-145); ART PCO2 ISTAT 42 mmHg (35-45); ART PH ISTAT 7.34 (7.35-7.45); ART PO2 ISTAT 187 mmHg (75-100); ART SAT O2 SAT 100 % (95-99); ART TCO2 ISTAT 24 mmol/L (21-32)
--- NOTE | 2018-10-24 12:24 | NUR ---
SS following up with discharge planning. Pt is currently on room air. PT/OT ordered. SS will await PT/OT evaluations and recommendations and will proceed accordingly. No discharge needs noted at this time. SS will continue to follow for discharge planning.
--- NOTE | 2018-10-24 12:32 | PDOC ---
Progress Note Subjective Subjective Doing extremely well. Ambulating. Normotensive, SR. On room air. Hb 11, creat 1.2. CXR OK. ROS ROS No nausea No vomiting No pain No rash Vital Sign Vital Signs Vital Signs Date Time Temp Pulse Resp B/P (MAP) Pulse Ox O2 Delivery O2 Flow Rate FiO2 10/24/18 11:46 92 Room Air 2.0 10/24/18 11:00 99.5 85 20 149/70 (96) 99.5 Physical Exam PHYSICAL EXAM GENERAL: NAD, Alert HEENT: PERRL, OC/OP NECK: Supple, no JVD, no LN LUNGS: Clear HEART: S1S2, no gallop, no murmur, incisions: D/C/I ABD: Soft, NT, no organomegaly, no rebound EXT: No edema, no cyanosis [employer]: Alert, oriented x 3, no focal neurologic deficit SKIN: No rash IV: ok Labs Lab Laboratory Tests Test 10/23/18 16:53 10/23/18 20:28 10/24/18 04:20 10/24/18 08:03 Glucose (Fingerstick) 162 mg/dL (70-99) 172 mg/dL (70-99) 149 mg/dL (70-99) White Blood Count 10.4 x10^3/uL (4.0-11.0) Red Blood Count 3.47 x10^6/uL (4.30-5.70) Hemoglobin 11.0 g/dL (13.0-17.5) Hematocrit 30.5 % (39.0-53.0) Mean Corpuscular Volume 88 fL (79-100) Mean Corpuscular Hemoglobin 32 pg (25-35) Mean Corpuscular Hemoglobin Concent 36 g/dL (31-37) Red Cell Distribution Width 13.2 % (11.5-14.5) Platelet Count 130 x10^3/uL (140-400) Sodium Level 138 mmol/L (136-145) Potassium Level 4.2 mmol/L (3.5-5.1) Chloride Level 102 mmol/L (98-107) Carbon Dioxide Level 29 mmol/L (21-32) Anion Gap 7 (6-14) Blood Urea Nitrogen 13 mg/dL (8-26) Creatinine 1.1 mg/dL (0.7-1.3) Estimated GFR (Cockcroft-Gault) 68.1 Glucose Level 186 mg/dL (70-99) Calcium Level 8.8 mg/dL (8.5-10.1) Magnesium Level 2.2 mg/dL (1.8-2.4) Test 10/24/18 11:39 Glucose (Fingerstick) 211 mg/dL (70-99) Objective Assessment POD#3 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 Ambulating. Normotensive, SR. On room air. Hb 11, creat 1.2. CXR OK. Plan Plan of Care D/c home today Follow up with me on November 10 Stop Amiodarone ASA, statin, b nury ALYSE NIEVES MD Oct 24, 2018 12:32
[2018-10-24] MEDS ORDERED: METO25TA4 PO (14:15)
[2018-10-24] MEDS ORDERED: METF500T11 PO (14:15)
[2018-10-24] MEDS ORDERED: ASPI325T11 PO (14:15)
[2018-10-24] MEDS ORDERED: ATOR40TA59 PO (14:15)
[2018-10-24] MEDS ORDERED: INSU100V8 SQ (14:15)
[2018-10-24] MEDS ORDERED: ALBU2.5V8 NEB (14:15)
[2018-10-24] MEDS ORDERED: GLYB1.252 PO (14:15)
[2018-10-24] MEDS ORDERED: OXYC5TAB4 PO (14:15)
[2018-10-24] MEDS ORDERED: NITR0.4T SL (14:15)
--- NOTE | 2018-10-24 14:18 | PDOC3 ---
Discharge Summary Visit Information Date of Admission: Oct 17, 2018 Date of Discharge: Oct 24, 2018 Admitting Diagnosis Comment: 1. s/.p CABG 10/21 1. NSTEMI 2. HTN: labile, new 3. HLP: new 4. DM2: new. hgba1c 8.7 5. Obesity 6. Suspect CKD Final Diagnosis Problems Medical Problems: (1) 3-vessel CAD Status: Chronic (2) ACS (acute coronary syndrome) Status: Acute (3) CKD (chronic kidney disease) Status: Chronic (4) Elevated troponin Status: Acute (5) HLD (hyperlipidemia) Status: Chronic (6) HTN (hypertension) Status: Chronic (7) Morbid obesity Status: Chronic (8) NSTEMI (non-ST elevated myocardial infarction) Status: Acute Brief Hospital Course Allergies Allergies Coded Allergies Type Severity Reaction Last Updated Verified No Known Drug Allergies 10/17/18 No Vital Signs Vital Signs Date Time Temp Pulse Resp B/P (MAP) Pulse Ox O2 Delivery O2 Flow Rate FiO2 10/24/18 11:46 92 Room Air 2.0 10/24/18 11:00 99.5 85 20 149/70 (96) 99.5 Lab Results Laboratory Tests Test 10/22/18 17:44 10/22/18 21:21 10/23/18 04:45 10/23/18 08:12 Glucose (Fingerstick) 154 mg/dL (70-99) 184 mg/dL (70-99) 190 mg/dL (70-99) White Blood Count 11.4 x10^3/uL (4.0-11.0) Red Blood Count 3.62 x10^6/uL (4.30-5.70) Hemoglobin 11.3 g/dL (13.0-17.5) Hematocrit 31.7 % (39.0-53.0) Mean Corpuscular Volume 87 fL (79-100) Mean Corpuscular Hemoglobin 31 pg (25-35) Mean Corpuscular Hemoglobin Concent 36 g/dL (31-37) Red Cell Distribution Width 13.3 % (11.5-14.5) Platelet Count 109 x10^3/uL (140-400) Sodium Level 138 mmol/L (136-145) Potassium Level 4.2 mmol/L (3.5-5.1) Chloride Level 103 mmol/L (98-107) Carbon Dioxide Level 27 mmol/L (21-32) Anion Gap 8 (6-14) Blood Urea Nitrogen 12 mg/dL (8-26) Creatinine 1.2 mg/dL (0.7-1.3) Estimated GFR (Cockcroft-Gault) 61.6 Glucose Level 196 mg/dL (70-99) Calcium Level 8.7 mg/dL (8.5-10.1) Magnesium Level 1.9 mg/dL (1.8-2.4) Test 10/23/18 11:46 10/23/18 16:53 10/23/18 20:28 10/24/18 04:20 Glucose (Fingerstick) 191 mg/dL (70-99) 162 mg/dL (70-99) 172 mg/dL (70-99) White Blood Count 10.4 x10^3/uL (4.0-11.0) Red Blood Count 3.47 x10^6/uL (4.30-5.70) Hemoglobin 11.0 g/dL (13.0-17.5) Hematocrit 30.5 % (39.0-53.0) Mean Corpuscular Volume 88 fL (79-100) Mean Corpuscular Hemoglobin 32 pg (25-35) Mean Corpuscular Hemoglobin Concent 36 g/dL (31-37) Red Cell Distribution Width 13.2 % (11.5-14.5) Platelet Count 130 x10^3/uL (140-400) Sodium Level 138 mmol/L (136-145) Potassium Level 4.2 mmol/L (3.5-5.1) Chloride Level 102 mmol/L (98-107) Carbon Dioxide Level 29 mmol/L (21-32) Anion Gap 7 (6-14) Blood Urea Nitrogen 13 mg/dL (8-26) Creatinine 1.1 mg/dL (0.7-1.3) Estimated GFR (Cockcroft-Gault) 68.1 Glucose Level 186 mg/dL (70-99) Calcium Level 8.8 mg/dL (8.5-10.1) Magnesium Level 2.2 mg/dL (1.8-2.4) Test 10/24/18 08:03 10/24/18 11:39 Glucose (Fingerstick) 149 mg/dL (70-99) 211 mg/dL (70-99) Laboratory Tests Test 10/23/18 16:53 10/23/18 20:28 10/24/18 04:20 10/24/18 08:03 Glucose (Fingerstick) 162 mg/dL (70-99) 172 mg/dL (70-99) 149 mg/dL (70-99) White Blood Count 10.4 x10^3/uL (4.0-11.0) Red Blood Count 3.47 x10^6/uL (4.30-5.70) Hemoglobin 11.0 g/dL (13.0-17.5) Hematocrit 30.5 % (39.0-53.0) Mean Corpuscular Volume 88 fL (79-100) Mean Corpuscular Hemoglobin 32 pg (25-35) Mean Corpuscular Hemoglobin Concent 36 g/dL (31-37) Red Cell Distribution Width 13.2 % (11.5-14.5) Platelet Count 130 x10^3/uL (140-400) Sodium Level 138 mmol/L (136-145) Potassium Level 4.2 mmol/L (3.5-5.1) Chloride Level 102 mmol/L (98-107) Carbon Dioxide Level 29 mmol/L (21-32) Anion Gap 7 (6-14) Blood Urea Nitrogen 13 mg/dL (8-26) Creatinine 1.1 mg/dL (0.7-1.3) Estimated GFR (Cockcroft-Gault) 68.1 Glucose Level 186 mg/dL (70-99) Calcium Level 8.8 mg/dL (8.5-10.1) Magnesium Level 2.2 mg/dL (1.8-2.4) Test 10/24/18 11:39 Glucose (Fingerstick) 211 mg/dL (70-99) Brief Hospital Course Mr. Mckinney is a 63 old obese white male, came in for N STEMI but found to have three-vessel disease after [facility] hence went for CABG in 10/21. Postop course quite unremarkable except for mild confusion and postop pain. Did not need any blood transfusion, fast-track extubation etc. New diabetic with an A1c 8.7 and I am needing to start Levemir 15 daily at bedtime. Initially started at 10 now up to 15units qhs. Glyburide also started. Initially metformin not started because of creatinine 1.4, nondrinker. We're able to start metformin start with 500 once a day extended release, creatinine normal on discharge home independent today, follow-up [facility] as instructed, new medications including blood thinners and beta nury KRISTA inhibitor etc. all on chart Patient seen and examined DC time 32 minutes Discharge Information Condition at Discharge: Improved, Stable Follow Up: Weeks ([facility] as instructed) Disposition/Orders: D/C to Home Scheduled Aspirin (Aspirin Ec) 325 Mg Tablet.dr, 325 MG PO DAILYWBKFT for cad, #120 Prescribed by: LIZA WILLETT on 10/24/18 141 Atorvastatin Calcium (Atorvastatin Calcium) 40 Mg Tablet, 40 MG PO QHS for lipids, #90 Prescribed by: LIZA WILLETT on 10/24/18 141 Glyburide (Glyburide) 1.25 Mg Tablet, 2.5 MG PO BIDWMEALS for dm 2, #120 Prescribed by: LIZA WILLETT on 10/24/18 1415 Insulin Glargine,Hum.rec.anlog (Lantus) 100 Unit/1 Ml Vial, 15 UNIT SQ QHS for dm 2 for 30 Days Prescribed by: LIZA WILLETT on 10/24/18 141 Metformin Hcl (Metformin Hcl Er) 500 Mg Tab.er.24h, 500 MG PO DAILYWBKFT for ANTI-DIABETIC for 30 Days, #30 Ref 0 Prescribed by: LIZA WILLETT on 10/24/18 141 Metoprolol Tartrate (Metoprolol Tartrate) 25 Mg Tablet, 25 MG PO BID for cad, #120 Prescribed by: LIZA WILLETT on 10/24/18 1415 Scheduled PRN Albuterol Sulfate (Proair Hfa) 8.5 Gm Hfa.aer.ad, 2.5 MG NEB PRN Q4HRS PRN for SHORTNESS OF BREATH for 30 Days Prescribed by: LIZA WILLETT on 10/24/18 141 Nitroglycerin (Nitrostat) 0.4 Mg Tab.subl, 0.4 MG SL PRN Q5MIN PRN for CHEST PAIN, #120 Prescribed by: LIZA WILLETT on 10/24/18 141 Oxycodone Hcl (Oxycodone Hcl Immed.release ) 5 Mg Tablet, 10 MG PO PRN Q4HRS PRN for SEVERE PAIN, #30 Prescribed by: LIZA WILLETT on 10/24/18 1415 LIZA WILLETT MD Oct 24, 2018 14:18
--- NOTE | 2018-10-24 15:30 | NUR ---
Patient discharged to home. Discharge instructions given to patient and spouse and verbalized understanding. PIV and heart monitor removed. Escorted patient to [facility] per wheelchair into a private vehicle.
== END 2018-10-24 15:55 | disposition home or self-care (01) | DRG 233 ==
LOC: ER 17:38 → 2 NORTH 19:53 → 1 WEST ICU 10-21 14:58 → 2 SOUTH 10-23 12:45
PROVIDERS: ADMIT Internal Medicine; ATTEND Internal Medicine
PROC: 4A023N7 Measurement of Cardiac Sampling and Pressure, Left Heart, Percutaneous Approach (ICD-10-PCS; 2018-10-18)
PROC: B2151ZZ Fluoroscopy of Left Heart using Low Osmolar Contrast (ICD-10-PCS; 2018-10-18)
PROC: B2111ZZ Fluoroscopy of Multiple Coronary Arteries using Low Osmolar Contrast (ICD-10-PCS; 2018-10-18)
PROC: 021009W Bypass Coronary Artery, One Artery from Aorta with Autologous Venous Tissue, Open Approach (ICD-10-PCS; 2018-10-21)
PROC: 06BQ4ZZ Excision of Left Saphenous Vein, Percutaneous Endoscopic Approach (ICD-10-PCS; 2018-10-21)
PROC: 5A1221Z Performance of Cardiac Output, Continuous (ICD-10-PCS; 2018-10-21)
PROC: 02100Z9 Bypass Coronary Artery, One Artery from Left Internal Mammary, Open Approach (ICD-10-PCS; principal; 2018-10-21 07:30)
DX: I21.4 Non-ST elevation (NSTEMI) myocardial infarction (principal); N17.0 Acute kidney failure with tubular necrosis; E11.22 Type 2 diabetes mellitus with diabetic chronic kidney disease; I25.119 Atherosclerotic heart disease of native coronary artery with unspecified angina pectoris; E66.01 Morbid (severe) obesity due to excess calories; E78.5 Hyperlipidemia, unspecified; I12.9 Hypertensive chronic kidney disease with stage 1 through stage 4 chronic kidney disease, or unspecified chronic kidney disease; N18.9 Chronic kidney disease, unspecified; I25.2 Old myocardial infarction; Z82.49 Family history of ischemic heart disease and other diseases of the circulatory system; Z68.31 Body mass index [BMI] 31.0-31.9, adult
CPT/HCPCS: 36415; 36600; 71045; 71250; 80048; 80053; 80061; 81001; 82553; 82803; 82805; 82962; 83036; 83735; 83880; 84443; 84484; 85025; 85027; 85347; 85379; 85384; 85520; 85610; 85730; 86850; 86900; 86901; 86920; 93005; 93306; 93458; 93567; 93880; 93970; 94002; 96372; 99152; 99153; C1769; C1781; C1892; J0282; J0690; J0696; J1644; J1650; J1815; J2001; J2150; J2250; J2270; J2370; J2440; J2704; J3010; J3370; J3475; J3490; J7030; J7120; P9041; P9045; P9046; Q9967; 99285-25; C1713; G0378

== ENCOUNTER → 2018-11-10 | Outpatient (CLI) | payer OTHER ==
[2018-10-24 11:00] VITALS: BP 149/70
[~2018-11-10] MED LIST: ALBU2.5V8 NEB; ASPI325T11 PO; ATOR40TA59 PO; GLYB1.252 PO; INSU100V8 SQ; METF500T11 PO; METO25TA4 PO; NITR0.4T24 SL; OXYC5TAB4 PO
--- NOTE | 2018-11-11 07:57 | RAD ---
PROCEDURE: CHEST PA LATERAL CLINICAL INDICATION: Status post coronary artery bypass graft. COMPARISON: None FINDINGS: CABG changes noted. No pneumothorax identified. Cardiac and mediastinal contours unremarkable. No pulmonary consolidation or acute airspace disease. No acute osseous abnormalities identified. There is mild blunting of the left costophrenic angle. IMPRESSION: Questionable trace left pleural effusion. Electronically signed by: Vladimir Menard DO (11/11/2018 7:54 AM) [facility]
== END | disposition home or self-care (01) ==
LOC: RAD 12:43
PROVIDERS: ATTEND Thoracic Surgery (Cardiothoracic Vascular Surgery)
DX: Z95.1 Presence of aortocoronary bypass graft (principal)
CPT/HCPCS: 71046